=== PATIENT | male | born 1940 | race Caucasian/White ===

== ENCOUNTER 2019-08-09 07:27 | Outpatient (CLI) | payer MEDICARE, SELFPAY ==
[2019-08-09 09:03] LABS: Albumin Level 3.7 g/dL (3.4-5.0); Blood Urea Nitrogen 16 mg/dL (7-18); Carbon Dioxide 29 mmol/L (21-32); Chloride 100 mmol/L (98-108); Estimated Glomerular Filt Rate 56; Glucose 158 mg/dL (70-99); Osmolality Calculated 292 mOsm/kg (285-295); Sodium 139 mmol/L (136-145)
[2019-08-09 09:46] LABS: Alanine Aminotransferase 35 U/L (16-63); Alkaline Phosphatase 49 U/L (46-116); Aspartate Amino Transferase 29 U/L (15-37); Bilirubin,Total 0.4 mg/dL (0.00-1.00); Calcium 9.1 mg/dL (8.5-10.1)
[2019-08-09 09:50] LABS: Prostate Specific Antigen < 0.1 ng/mL (< OR = 4.0)
== END 2019-08-09 07:28 | disposition home or self-care (01) ==
LOC: CHSLAB 07:28
PROVIDERS: PCP Family Medicine; Visit Provider Urology
DX: C61 Malignant neoplasm of prostate (principal)
CPT/HCPCS: 36415; 80053; 84153

== ENCOUNTER 2020-02-07 14:54 | Outpatient (CLI) | payer MEDICARE, SELFPAY ==
[2020-02-07 16:00] LABS: Alanine Aminotransferase 40 U/L (16-63); Albumin Level 3.8 g/dL (3.4-5.0); Alkaline Phosphatase 55 U/L (46-116); Anion Gap 11 mmol/L (8-16); Aspartate Amino Transferase 30 U/L (15-37); Bilirubin,Total 0.3 mg/dL (0.00-1.00); Blood Urea Nitrogen 16 mg/dL (7-18); Calcium 9.3 mg/dL (8.5-10.1); Carbon Dioxide 25 mmol/L (21-32); Chloride 104 mmol/L (98-108); Estimated Glomerular Filt Rate 50; Glucose 121 mg/dL (70-99); Osmolality Calculated 292 mOsm/kg (285-295); Potassium 4.4 mmol/L (3.5-5.1); Sodium 140 mmol/L (136-145); Total Protein 7.1 g/dL (6.4-8.2)
[2020-02-07 16:10] LABS: Prostate Specific Antigen < 0.1 ng/mL (< OR = 4.0)
== END 2020-02-07 14:55 | disposition home or self-care (01) ==
LOC: CHSLAB 14:56
PROVIDERS: PCP Family Medicine; Visit Provider Urology
DX: C61 Malignant neoplasm of prostate (principal)
CPT/HCPCS: 36415; 80053; 84153

== ENCOUNTER 2020-03-04 02:40 | Emergency (ER) | payer MEDICARE, SELFPAY ==
--- NOTE | ~2020-03-04 | CT_ITS ---
EXAMINATION: CT abdomen pelvis w con DATE: 03/04/2020 04:36 INDICATION: Elbow pain and rectal bleeding TECHNIQUE: Computed tomography (CT) of the abdomen and pelvis was performed with 100 cc Omnipaque 350 intravenous contrast. The dose-length product was 953.26 mGy-cm. Automated exposure control and iter ative reconstruction technique were employed. COMPARISON: None. FINDINGS: Bibasilar dependent atelectasis. Cardiomegaly. No significant pleural or pericardial effusi on. Status post cholecystectomy. Fatty infiltration of the liver. The spleen, pancreas, adrenal glands there is thickening and surroun ding inflammation in the ascending colon, consistent with acute diverticulitis. No free air. No evide nce for abscess. There is a left lower pole renal cyst measuring 4.5 cm. There are smaller hypodensities of the kidney s, most likely benign cysts. There is a 3 mm nonobstructing right renal stone. There are changes of v entral hernia repair. Status post appendectomy and cholecystectomy. There are probable radiation ther apy seeds. Moderate lumbar spondylosis. There is a urachal remnant of the bladder. IMPRESSION: 1. Acute uncomplicated diverticulitis of the ascending colon. 2: Nonobstructing right renal stone measuring 3 mm. Reviewed, dictated and finalized at location A. 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
[2020-03-04 02:51] VITALS: BP 97/45; PULSE 101; RESP 20; TEMP 36.1; O2SAT 95
[2020-03-04] MEDS: SODIUM CHLORIDE 0.9% IV 1,000 ML 999 ML IV CONT (03:07)
[2020-03-04] MEDS: ONDANSETRON INJ 4 MG/2 ML VIAL IV PUSH (03:41)
[2020-03-04] MEDS: PANTOPRAZOLE SODIUM IV 40 MG VIAL IV PUSH (03:42)
[2020-03-04 03:48] LABS: Basophils Absolute Auto 0.05 K/mm3 (0.00-0.10); Basophils Percent Auto 0.4 % (0.0-1.0); Eosinophils Absolute Auto 0.38 K/mm3 (0.02-0.50); Eosinophils Percent Auto 3.1 % (1.0-6.0); Hemoglobin 9.6 g/dL (12.4-15.3); Immature Granulocyte Absolute 0.07 K/mm3 (0.00-0.00); Immature Granulocyte Percent A 0.6 % (0.0-0.0); Lymphocytes Absolute Auto 0.93 K/mm3 (1.10-4.50); Lymphocytes Percent Auto 7.6 % (18.0-42.0); Mean Corpuscular HGB Conc 34.3 g/dL (32.0-36.0); Mean Corpuscular Hemoglobin 30.4 pg (27.0-31.0); Mean Corpuscular Volume 88.6 fL (78.0-102.0); Monocytes Absolute Auto 0.94 K/mm3 (0.10-0.90); Monocytes Percent Auto 7.7 % (2.0-11.0); Neutrophils Absolute Auto 9.9 K/mm3 (1.7-7.2); Neutrophils Percent Auto 80.6 % (50.0-70.0); Platelet Count Result 193 K/mm3 (150-420); Red Blood Count 3.16 M/mm3 (4.70-6.10); Red Cell Distribution Width 14.1 % (11.6-14.4); White Blood Count 12.3 K/mm3 (4.8-10.8)
--- NOTE | 2020-03-04 03:50 | ECG_ITS ---
Measurements Intervals Sebastian Rate: 82 P: 25 MD: 149 QRS: -30 QRSD: 101 T: 13 QT: 385 QTc: 451 Interpretive Statements SINUS RHYTHM DELAYED PRECORDIAL R/S TRANSITION BORDERLINE T WAVE ABNORMALITY- INFERIOR LEADS BORDERLINE ECG Electronically Signed On 03-05-2020 8:16:20 [employer]IP [employer]EWARD by Kodi Mckinney D.O.
[2020-03-04 04:04] LABS: Occult Blood Positive (Negative)
[2020-03-04 04:06] LABS: Partial Thromboplastin Time 24.3 SEC (23.90-30.70)
[2020-03-04 04:10] LABS: Alanine Aminotransferase 26 U/L (16-63); Albumin Level 2.8 g/dL (3.4-5.0); Alkaline Phosphatase 40 U/L (46-116); Anion Gap 9 mmol/L (8-16); Aspartate Amino Transferase 18 U/L (15-37); Bilirubin,Total 0.4 mg/dL (0.00-1.00); Blood Urea Nitrogen 11 mg/dL (7-18); Calcium 7.7 mg/dL (8.5-10.1); Carbon Dioxide 22 mmol/L (21-32); Chloride 106 mmol/L (98-108); Estimated CRCL calculation 45 ml/min; Estimated Glomerular Filt Rate 56; Glucose 183 mg/dL (70-99); Osmolality Calculated 288 mOsm/kg (285-295); Potassium 3.9 mmol/L (3.5-5.1); Sodium 137 mmol/L (136-145); Total Protein 5.8 g/dL (6.4-8.2)
[2020-03-04 04:14] LABS: Ammonia 21 umol/L (11-32); Lipase 135 U/L (73-393)
[2020-03-04 04:15] LABS: Lactic Acid Reflex 3.9 mmol/L (0.4-2.0)
[2020-03-04 04:22] LABS: SARS-CoV-2 Ag Negative (Negative)
[2020-03-04] MEDS: MAGNESIUM SULF 2 GM/WATER 50ML 2 GM/50 ML BAG IVPB (04:45)
--- NOTE | 2020-03-04 05:37 | ED.GIBLEED ---
HPI - GI Bleed General Chief complaint: GI Bleed Stated complaint: Vomiting and Diarrhea Source: patient and family Mode of arrival: ambulatory History of Present Illness HPI Narrative: this is a 79-year-old gentleman presents to the emergency department with some rectal bleed, the patient woke up approximately 1 in the morning felt like he had to use that the bathroom was having some abdominal discomfort thought he had diarrhea and while on the toilet there was large amount of bright red blood, the patient had some abdominal discomfort with nausea and had an episode of vomiting, the vomitus had no blood. Patient has had no prior history of GI bleed, currently has a history of diabetes, hyperlipidemia and hypertension and is currently taking a baby aspirin. Patient has been feeling weak with no shortness of breath no chest pain no fever chills. MD complaint: gross hematochezia Onset (ago): hour(s) Pain Consistency: constant Severity: moderate Relieving factors: bowel movement Exacerbating factors: none Associated symptoms: abdominal pain Related Data Home Medications Medication Instructions Recorded Confirmed allopurinol 100 mg PO DAILY 03/04/20 03/04/20 cholecalciferol (vitamin D3) 25 mcg PO DAILY 03/04/20 03/04/20 cyanocobalamin (vitamin B-12) 1,000 mcg PO DAILY 03/04/20 03/04/20 losartan 100 mg PO DAILY 03/04/20 03/04/20 metformin 1,000 mg PO BID 03/04/20 03/04/20 omeprazole 40 mg PO DAILY 03/04/20 03/04/20 simvastatin 10 mg PO DAILY 03/04/20 03/04/20 Allergies Allergy/AdvReac Type Severity Reaction Status Date / Time No Known Allergies Allergy Mild Unverified 10/24/04 16:15 Review of Systems Review of Systems: All systems reviewed & are unremarkable except as noted in HPI and below PMFSH Past Medical History Medical History Diabetes mellitus HTN (hypertension) Family History Family History Mother Family history of hypothyroidism Exam Const: General: no acute distress and alert Orientation/consciousness: patient oriented x3 HENMT: Head: normal to inspection Eyes: Conjunctivae: conjunctivae normal Pupils: Equal, round and reactive pupils present EOM: EOMs intact bilaterally Neck: Neck: normal visual inspection, no lymphadenopathy and no meningeal signs Chest: Chest palpation & inspection: normal inspection of the chest Resp: Effort & Inspection: normal respiratory effort Auscultation: clear to auscultation bilaterally GI: GI Palp: Yes Soft to palpation and Yes Tenderness to palpation present (GI) Other: rectal exam did show quite a bit of bright red blood on my glove Neuro: General: patient oriented x3, moves all extremities, no meningeal signs and no focal motor deficits Psych: Mental Status: mental status grossly normal Course Course Emergency Course: patient resting comfortably initially had a blood pressure of 97/45, did receive fluid bolus and current blood pressure 122/60, initially had a heart rate of 101 and currently is 81 of the rest of his vital signs are stable, the patient appears comfortable did receive IV fluids, he had a low magnesium level and that was replaced with a Mag rider, currently no nausea or vomiting abdominal pain is improved. CT scan showed evidence of acute diverticulitis of the ascending colon, will give a g of ceftriaxone and also IV Flagyl. Talked to hospitalist at [facility] in [place] which is the accepting physician . Vital Signs Vital signs: Vital Signs Temperature 36.1 C L 03/04/20 02:51 Pulse Rate 101 H 03/04/20 02:51 Respiratory Rate 20 03/04/20 02:51 Blood Pressure 97/45 L 03/04/20 02:51 Pulse Oximetry 95 03/04/20 02:51 Temperature 36.1 C L 03/04/20 02:51 Pulse Rate 101 H 03/04/20 02:51 Respiratory Rate 20 03/04/20 02:51 Blood Pressure 97/45 L 03/04/20 02:51 Pulse Oximetry 95 03/04/20
--- NOTE | 2020-03-04 05:43 | PC.NURSE ---
ERP discussed transfer and POC c pt. and spouse. Pt. requests transfer to [facility] for services. Call placed to [facility].
[2020-03-04] MEDS: SODIUM CHLORIDE 0.9% IV 1,000 ML 150 ML IV CONT (05:48)
--- NOTE | 2020-03-04 06:04 | PC.NURSE ---
call back from [facility], will connect c hospitalist. Awaiting call back.
--- NOTE | 2020-03-04 06:11 | PC.NURSE ---
Dr. Jane accepts for transfer. Paperwork signed.
[2020-03-04] MEDS: metroNIDAZOLE 500 MG/ISO 100ML 500 MG/100 ML BAG 100 MG IVPB (06:30)
[2020-03-04 06:42] LABS: Reflex Lactic Acid Yes or No Add Lactic
[2020-03-04 07:13] LABS: Lactic Acid 2.5 mmol/L (0.4-2.0)
[2020-03-04 07:14] VITALS: BP 132/68; PULSE 81; RESP 18; TEMP 36.1; O2SAT 97
--- NOTE | 2020-03-04 07:17 | PC.NURSE ---
Call placed to [facility] for pt. transfer. Pt. resting c no c/o, VSS.
--- NOTE | 2020-03-04 07:29 | PC.NURSE ---
Pt. assisted to [facility], had small BM of bright red blood clots. Awaiting [facility] for transfer.
== END 2020-03-04 07:42 | disposition short-term general hospital (02) ==
PROVIDERS: Emergency Provider Emergency Medicine; PCP Family Medicine
DX: K92.2 Gastrointestinal hemorrhage, unspecified (principal); E11.9 Type 2 diabetes mellitus without complications; I10 Essential (primary) hypertension
CPT/HCPCS: 36415; 74177; 80053; 82140; 82272; 83605; 83690; 83735; 85025; 85610; 85730; 87426; 93005; 96361; 96365; 96367; 96375; 99285; C9113; C9803; J0696; J2405; J3475; J7030; Q9967

== ENCOUNTER 2020-08-04 08:25 | Outpatient (CLI) | payer MEDICARE, SELFPAY ==
[2020-08-04 09:41] LABS: Alanine Aminotransferase 42 U/L (16-63); Albumin Level 3.7 g/dL (3.4-5.0); Alkaline Phosphatase 51 U/L (46-116); Anion Gap 13 mmol/L (8-16); Aspartate Amino Transferase 30 U/L (15-37); Bilirubin,Total 0.4 mg/dL (0.00-1.00); Blood Urea Nitrogen 15 mg/dL (7-18); Calcium 9.3 mg/dL (8.5-10.1); Carbon Dioxide 23 mmol/L (21-32); Chloride 103 mmol/L (98-108); Estimated Glomerular Filt Rate 55; Glucose 174 mg/dL (70-99); Osmolality Calculated 292 mOsm/kg (285-295); Potassium 4.4 mmol/L (3.5-5.1); Sodium 139 mmol/L (136-145); Total Protein 7.1 g/dL (6.4-8.2)
[2020-08-04 09:42] LABS: Prostate Specific Antigen < 0.1 ng/mL (< OR = 4.0)
== END 2020-08-04 08:26 | disposition home or self-care (01) ==
LOC: CHSLAB 08:26
PROVIDERS: PCP Family Medicine; Visit Provider Urology
DX: C61 Malignant neoplasm of prostate (principal)
CPT/HCPCS: 36415; 80053; 84153

== ENCOUNTER 2021-03-13 10:10 | Outpatient (CLI) | payer MEDICARE, SELFPAY ==
[2021-03-13 11:52] LABS: Alanine Aminotransferase 37 U/L (16-63); Albumin Level 3.6 g/dL (3.4-5.0); Alkaline Phosphatase 71 U/L (46-116); Anion Gap 11 mmol/L (8-16); Aspartate Amino Transferase 28 U/L (15-37); Bilirubin,Total 0.4 mg/dL (0.00-1.00); Blood Urea Nitrogen 28 mg/dL (7-18); Calcium 9.2 mg/dL (8.5-10.1); Carbon Dioxide 25 mmol/L (21-32); Chloride 92 mmol/L (98-108); Estimated Glomerular Filt Rate 30; Potassium 5.2 mmol/L (3.5-5.1); Sodium 128 mmol/L (136-145); Total Protein 7.4 g/dL (6.4-8.2)
[2021-03-13 11:56] LABS: Glucose 561 mg/dL (70-99); Osmolality Calculated 297 mOsm/kg (285-295); Prostate Specific Antigen < 0.1 ng/mL (< OR = 4.0)
== END 2021-03-13 10:11 | disposition home or self-care (01) ==
LOC: CHSLAB 10:13
PROVIDERS: PCP Physician Assistant; Visit Provider Urology
DX: C61 Malignant neoplasm of prostate (principal)
CPT/HCPCS: 36415; 80053; 84153

== ENCOUNTER 2021-03-13 16:46 | Emergency (ER) | payer MEDICARE, SELFPAY ==
[2021-03-13 17:00] LABS: Glucose Point of Care > 450 mg/dl (65-105)
[2021-03-13 17:04] VITALS: BP 131/67; PULSE 103; RESP 20; TEMP 36.6; O2SAT 96
--- NOTE | 2021-03-13 17:20 | ED_ITS ---
HPI - Alcohol General Chief Complaint: Recheck/Abnormal Lab/Rx Stated Complaint: doctor recommened glucose high Time Seen by Provider: 03/13/21 16:47 Related Data Home Medications Medication Instructions Recorded Confirmed allopurinol 100 mg PO DAILY 03/04/20 03/13/21 cholecalciferol (vitamin D3) 25 mcg PO DAILY 03/04/20 03/13/21 cyanocobalamin (vitamin B-12) 1,000 mcg PO DAILY 03/04/20 03/13/21 losartan 100 mg PO DAILY 03/04/20 03/13/21 omeprazole 40 mg PO DAILY 03/04/20 03/13/21 simvastatin 10 mg PO DAILY 03/04/20 03/13/21 Adult Low Dose Aspirin 81 mg PO DAILY 03/13/21 03/13/21 dicyclomine 20 mg PO PRN 03/13/21 03/13/21 sitagliptin [Januvia] 100 mg PO DAILY 03/13/21 03/13/21 Allergies Allergy/AdvReac Type Severity Reaction Status Date / Time No Known Allergies Allergy Mild Verified 03/13/21 17:09 [facility] Past Medical History Medical History Diabetes mellitus HTN (hypertension) Family History Family History Mother Family history of hypothyroidism Course Vital Signs Vital signs: Vital Signs Temperature 36.6 C 03/13/21 17:04 Pulse Rate 103 H 03/13/21 17:04 Respiratory Rate 20 03/13/21 17:04 Blood Pressure 131/67 03/13/21 17:04 Pulse Oximetry 96 03/13/21 17:04 Temperature 36.6 C 03/13/21 17:04 Pulse Rate 103 H 03/13/21 17:04 Respiratory Rate 20 03/13/21 17:04 Blood Pressure 131/67 03/13/21 17:04 Pulse Oximetry 96 03/13/21 17:04 MDM - Alcohol Lab Data Labs: Lab Results 03/13/21 Range/Units 16:58 POC Capillary Glucose > 450 H (65-105) mg/dl Discharge Plan Discharge Prescriptions: No Action simvastatin 10 mg tablet 10 mg PO DAILY RF: 0 allopurinol 100 mg tablet 100 mg PO DAILY RF: 0 omeprazole 40 mg capsule,delayed release(DR/EC) 40 mg PO DAILY RF: 0 losartan 100 mg tablet 100 mg PO DAILY RF: 0 cholecalciferol (vitamin D3) 25 mcg (1,000 unit) Tablet 25 mcg PO DAILY RF: 0 cyanocobalamin (vitamin B-12) 1,000 mcg Capsule 1,000 mcg PO DAILY RF: 0 dicyclomine 20 mg tablet 20 mg PO PRN RF: 0 Januvia 100 mg tablet 100 mg PO DAILY RF: 0 Adult Low Dose Aspirin 81 mg 81 mg PO DAILY RF: 0
--- NOTE | 2021-03-13 17:21 | ED.RECABL ---
HPI - Recheck/Abnormal Lab/Rx General Chief Complaint: Recheck/Abnormal Lab/Rx Stated Complaint: doctor recommened glucose high Time Seen by Provider: 03/13/21 17:36 Source: patient Mode of arrival: ambulatory Limitations: no limitations History of Present Illness HPI narrative: 80-year-old man with history of type 2 diabetes and prostate cancer comes to the emergency department at the behest of his primary care doctor for abnormal labs. Namely he has a sodium 128, glucose of 561 and a creatinine of 2.12. Patient states that he has been feeling well and has had no frequent urination, dysuria, hematuria, nausea, vomiting, chest pain, diarrhea, abdominal pain or recent cough or cold symptoms. He states that he takes Januvia daily for his diabetes. Until 4 months ago he was taking metformin but he was intolerant of that medication (diarrhea). He does not check his blood glucose at home. MD complaint: other (Hyperglycemia) Initial visit (ago): hour(s) Initial visit for: other (Routine labs prostate cancer follow-up) Returns today for: called because of abnormal lab/test Symptoms since prior visit: no new symptoms Context: called for abnormal lab result Associated symptoms: none Related Data Home Medications Medication Instructions Recorded Confirmed allopurinol 100 mg PO DAILY 03/04/20 03/13/21 cholecalciferol (vitamin D3) 25 mcg PO DAILY 03/04/20 03/13/21 cyanocobalamin (vitamin B-12) 1,000 mcg PO DAILY 03/04/20 03/13/21 losartan 100 mg PO DAILY 03/04/20 03/13/21 omeprazole 40 mg PO DAILY 03/04/20 03/13/21 simvastatin 10 mg PO DAILY 03/04/20 03/13/21 Adult Low Dose Aspirin 81 mg PO DAILY 03/13/21 03/13/21 dicyclomine 20 mg PO PRN 03/13/21 03/13/21 sitagliptin [Januvia] 100 mg PO DAILY 03/13/21 03/13/21 Allergies Allergy/AdvReac Type Severity Reaction Status Date / Time No Known Allergies Allergy Mild Verified 03/13/21 17:09 Review of Systems Review of Systems: All systems reviewed & are unremarkable except as noted in HPI and below Constitutional: Constitutional: Denies chills and Denies fever(s) ENT: Denies nasal congestion and Denies sore throat Cardiovascular: Cardiovascular: Denies chest pain and Denies radiating jaw, neck or arm pain Respiratory: Respiratory: Denies cough, Denies dyspnea and Denies wheezing Gastrointestinal: Gastrointestinal: Denies abdominal pain, Denies diarrhea, Denies nausea and Denies vomiting Genitourinary: Genitourinary: Denies dysuria and Denies urinary frequency Musculoskeletal: Musculoskeletal: Denies back pain, Denies arthralgias and Denies joint swelling Integumentary/Breasts: Skin/Breast: Denies pruritus, Denies erythema and Denies rash Neurologic: Denies vertigo, Denies dizziness and Denies syncope Endocrine: Endocrine: Denies polydipsia and Denies polyuria Hematologic/Lymphatic: Hematologic/Lymphatic: Denies easy bleeding and Denies easy bruising Allergic/Immunologic: Allergic/Immunologic: Denies lip swelling and Denies throat swelling PMFSH Past Medical History Medical History (Updated 03/13/21 @ 18:38 by Kenyon Long MD) HTN (hypertension) Prostate cancer Type 2 diabetes mellitus Family History Family History Mother Family history of hypothyroidism Social History Social History (Updated 03/13/21 @ 18:34 by Kenyon Long MD) Smoking status: Never smoker Substance use: never Living arrangements: with family Exam Const: General: healthy appearing, no acute distress and alert Nutritional Appearance: well nourished Orientation/consciousness: patient oriented x3 Limitations: no limitations HENMT: Mouth: Yes moist mucous membranes Throat: posterior oropharynx normal Eyes: Conjunctivae: conjunctivae normal Pupils: Equal, round and reactive pupils present EOM: EOMs intact bilaterally Resp: Effort & Inspection: normal respiratory effort and not labored Auscultation: clear to auscul
[2021-03-13 18:10] LABS: Add Urine Microscopic? YES; Appearance Urine Clear (Clear); Bilirubin Urine Negative (Negative); Blood Urine Negative (Negative); Color Urine Light Yellow (Yellow); Glucose Urine UA 3+ (Negative); Ketones Urine Negative (Negative); Leukocyte Esterase Ur Negative (Negative); Nitrate Urine Negative (Negative); Protein Urine Negative (Negative); Urobilinogen Urine 0.2 mg/dL (0.2-1.0); pH Urine 5.5 (5.0-8.0)
[2021-03-13 18:16] LABS: Bacteria Urine Trace /hpf; RBC Urine 0-2 /hpf (0-2); WBC Urine 0-3 /hpf (0-3)
[2021-03-13 18:28] LABS: SARS-CoV-2 Ag Negative (Negative)
[2021-03-13] MEDS: INSULIN HUMAN REGULAR (*BKC) 100 UNITS/ML SUB-Q (18:34)
--- NOTE | 2021-03-13 18:43 | PC.NURSE ---
Pt educated on insulin administration and BGC monitoring, return explanation performed
== END 2021-03-13 19:20 | disposition home or self-care (01) ==
PROVIDERS: Emergency Provider Emergency Medicine; PCP Physician Assistant
DX: E11.9 Type 2 diabetes mellitus without complications (principal); Z20.822 Contact with and (suspected) exposure to COVID-19; I10 Essential (primary) hypertension; Z85.46 Personal history of malignant neoplasm of prostate
CPT/HCPCS: 36415; 81001; 82948; 83036; 87426; 99283; C9803; J1815

== ENCOUNTER 2021-04-05 11:50 | Outpatient (CLI) | payer MEDICARE, SELFPAY ==
--- NOTE | ~2021-04-05 | US_ITS ---
EXAMINATION: US retroperitoneal comp DATE: 04/05/2021 12:34 INDICATION: Prostate cancer. Chronic kidney disease. TECHNIQUE: Multiple ultrasound grayscale images of the kidneys were obtained. COMPARISON: None. FINDINGS: The right kidney measures 11.4 x 5.0 x 5.0 cm. The left kidney measures 12.3 x 5.3 x 5.1 cm. The kidn eys demonstrate normal echogenicity. 8 mm anechoic cyst at the upper pole of the right kidney. 3.5 cm exophytic cyst at the lower pole of the left kidney. There is no hydronephrosis in either kidney. N o stones identified. The bladder is normal with calculated prevoid volume of 117 mm and calculated po stvoid bladder volume of 9 mL. IMPRESSION: 1. Bilateral renal cysts. No hydronephrosis. Reviewed, dictated and finalized at location A. 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
[2021-04-05 12:18] LABS: Hemoglobin A1C 10.9 % (<5.7)
[2021-04-05 12:41] LABS: Anion Gap 12 mmol/L (8-16); Blood Urea Nitrogen 26 mg/dL (7-18); Calcium 9.3 mg/dL (8.5-10.1); Carbon Dioxide 27 mmol/L (21-32); Chloride 100 mmol/L (98-108); Estimated Glomerular Filt Rate 47; Glucose 117 mg/dL (70-99); Osmolality Calculated 293 mOsm/kg (285-295); Potassium 4.4 mmol/L (3.5-5.1); Sodium 139 mmol/L (136-145)
== END 2021-04-05 11:51 | disposition home or self-care (01) ==
LOC: CHSIMG 11:52
PROVIDERS: PCP Physician Assistant; Visit Provider Urology
DX: C61 Malignant neoplasm of prostate (principal); N18.9 Chronic kidney disease, unspecified; E11.9 Type 2 diabetes mellitus without complications
CPT/HCPCS: 36415; 76770; 80048; 83036

== ENCOUNTER 2022-03-11 10:09 | Outpatient (CLI) | payer MEDICARE, SELFPAY ==
[2022-03-11 11:21] LABS: Alanine Aminotransferase 25 U/L (16-63); Albumin Level 3.7 g/dL (3.4-5.0); Alkaline Phosphatase 62 U/L (46-116); Anion Gap 11 mmol/L (8-16); Aspartate Amino Transferase 20 U/L (15-37); Bilirubin,Total 0.4 mg/dL (0.00-1.00); Blood Urea Nitrogen 22 mg/dL (7-18); Calcium 8.8 mg/dL (8.5-10.1); Carbon Dioxide 28 mmol/L (21-32); Chloride 103 mmol/L (98-108); Estimated Glomerular Filt Rate 55; Glucose 156 mg/dL (70-99); Osmolality Calculated 300 mOsm/kg (285-295); Potassium 4.4 mmol/L (3.5-5.1); Sodium 142 mmol/L (136-145); Total Protein 7.4 g/dL (6.4-8.2)
[2022-03-11 11:22] LABS: Prostate Specific Antigen < 0.1 ng/mL (< OR = 4.0)
== END 2022-03-11 10:10 | disposition home or self-care (01) ==
LOC: CHSLAB 10:14
PROVIDERS: PCP Physician Assistant; Visit Provider Urology
DX: C61 Malignant neoplasm of prostate (principal)
CPT/HCPCS: 36415; 80053; 84153

== ENCOUNTER 2022-05-12 12:40 | Outpatient (CLI) | payer MEDICARE, SELFPAY ==
--- NOTE | ~2022-05-12 | XR_ITS ---
Left Knee Technique: AP, lateral, and sunrise views were obtained. Clinical History: Pain Findings: No fracture or dislocation is seen. Osseous alignment is anatomic. There is mild tricompart mental degenerative change, worse at the medial compartment. Soft tissues are unremarkable. No joint effusion is seen. 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 Reviewed, dictated and finalized at location . 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
== END 2022-05-12 12:41 | disposition home or self-care (01) ==
LOC: CHSIMG 12:42
PROVIDERS: PCP Physician Assistant; Visit Provider Physician Assistant
DX: M25.561 Pain in right knee (principal); M17.12 Unilateral primary osteoarthritis, left knee
CPT/HCPCS: 73562

== ENCOUNTER 2023-03-11 08:41 | Outpatient (CLI) | payer MEDICARE, SELFPAY ==
[2023-03-11 09:39] LABS: Alanine Aminotransferase 31 U/L (16-63); Albumin Level 3.4 g/dL (3.4-5.0); Alkaline Phosphatase 57 U/L (46-116); Anion Gap 14 mmol/L (8-16); Aspartate Amino Transferase 19 U/L (15-37); Bilirubin,Total 0.5 mg/dL (0.00-1.00); Blood Urea Nitrogen 23 mg/dL (7-18); Calcium 8.8 mg/dL (8.5-10.1); Carbon Dioxide 25 mmol/L (21-32); Chloride 99 mmol/L (98-108); Estimated Glomerular Filt Rate 48; Glucose 253 mg/dL (70-99); Osmolality Calculated 298 mOsm/kg (285-295); Potassium 4.4 mmol/L (3.5-5.1); Sodium 138 mmol/L (136-145); Total Protein 7.2 g/dL (6.4-8.2)
[2023-03-11 09:41] LABS: Prostate Specific Antigen < 0.1 ng/mL (< OR = 4.0)
== END 2023-03-11 08:42 | disposition home or self-care (01) ==
LOC: CHSLAB 08:44
PROVIDERS: PCP Physician Assistant; Visit Provider Urology
DX: C61 Malignant neoplasm of prostate (principal)
CPT/HCPCS: 36415; 80053; 84153

== ENCOUNTER 2024-01-25 12:38 | Outpatient (CLI) | payer MEDICARE, SELFPAY ==
[2024-01-25 13:59] LABS: Alanine Aminotransferase 21 U/L (16-63); Albumin Level 3.4 g/dL (3.4-5.0); Alkaline Phosphatase 72 U/L (46-116); Anion Gap 10 mmol/L (4-12); Aspartate Amino Transferase 15 U/L (15-37); Bilirubin,Total 0.4 mg/dL (0.00-1.00); Blood Urea Nitrogen 30 mg/dL (7-18); Calcium 8.8 mg/dL (8.5-10.1); Carbon Dioxide 26 mmol/L (21-32); Chloride 102 mmol/L (98-108); Estimated Glomerular Filt Rate 33; Glucose 186 mg/dL (70-99); Osmolality Calculated 297 mOsm/kg (285-295); Potassium 4.4 mmol/L (3.5-5.1); Prostate Specific Antigen < 0.1 ng/mL (< OR = 4.0); Sodium 138 mmol/L (136-145); Total Protein 7.1 g/dL (6.4-8.2)
== END 2024-01-25 12:39 | disposition home or self-care (01) ==
LOC: CHSLAB 12:39
PROVIDERS: PCP Physician Assistant; Visit Provider Urology
DX: C61 Malignant neoplasm of prostate (principal); N40.3 Nodular prostate with lower urinary tract symptoms
CPT/HCPCS: 36415; 80053; 84153

== ENCOUNTER 2024-02-12 08:28 | Outpatient (CLI) | payer MEDICARE, SELFPAY ==
--- NOTE | ~2024-02-12 | US_ITS ---
EXAMINATION: US renal BI DATE: 02/12/2024 09:06 INDICATION: Stage IIIB chronic kidney disease TECHNIQUE: Multiple ultrasound grayscale images of the kidneys were obtained. COMPARISON: 04/05/[address] dated 03/04/2020 FINDINGS: The right kidney measures 10.7 x 3.6 x 4.4 cm. The left kidney measures 4.8 x 4.0 x 6.3 cm. The kidne ys demonstrate normal echogenicity. 3.9 cm anechoic eccentric cyst at the left kidney. There is no hy dronephrosis in either kidney. Approximately 1 cm echogenic and shadowing stone at the lower pole of the right kidney. The bladder is normal. IMPRESSION: 1. 1 cm nonobstructing right renal stone. No hydronephrosis. Reviewed, dictated and finalized at location B. [employer]
== END 2024-02-12 08:29 | disposition home or self-care (01) ==
LOC: CHSIMG 08:30
PROVIDERS: PCP Physician Assistant
DX: N18.32 Chronic kidney disease, stage 3b (principal); N20.0 Calculus of kidney
CPT/HCPCS: 76775

== ENCOUNTER 2024-03-03 13:18 | Outpatient (CLI) | payer MEDICARE, SELFPAY ==
--- NOTE | ~2024-03-03 | US_ITS ---
US pelvic limited 03/03/2024 13:36 Indication: Prostate cancer. Evaluate post void residual. Procedure: High-resolution transabdominal ultrasound of the pelvis Comparison: Ultrasound dated 08/23/2018 Findings: Bladder wall is unremarkable without focal mass or bladder wall thickening. Prevoid volume is 131 cc. No post void residual. Impression: 1: Unremarkable pelvic ultrasound. No postvoid residual. Reviewed, dictated and finalized at location A. 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 No postvoid residual.
== END 2024-03-03 13:19 | disposition home or self-care (01) ==
LOC: CHSIMG 13:20
PROVIDERS: PCP Physician Assistant; Visit Provider Urology
DX: C61 Malignant neoplasm of prostate (principal); N18.9 Chronic kidney disease, unspecified
CPT/HCPCS: 76857

== ENCOUNTER 2024-03-17 08:26 | Outpatient (CLI) | payer MEDICARE, SELFPAY ==
[2024-03-17 08:41] LABS: Hematocrit 37.8 % (37.0-46.0); Hemoglobin 12.3 g/dL (12.4-15.3); Mean Corpuscular HGB Conc 32.5 g/dL (32-36); Mean Corpuscular Hemoglobin 28.5 pg (27.0-31.0); Mean Corpuscular Volume 87.7 fL (78.0-102.0); Mean Platelet Volume 9.5 fl (8.7-11.0); Platelet Count Result 253 K/mm3 (150-420); Red Blood Count 4.31 M/mm3 (4.70-6.10); Red Cell Distribution Width 14.4 % (11.6-14.4); White Blood Count 10.5 K/mm3 (4.8-10.8)
--- OUTSIDE RECORDS SUMMARY | 2024-03-17 08:45 | XMS_ITS | Encounter Summary ---
Author Organization [facility] Address [address] [place] [address]. [place], [place] [id number] [place] [id number] Care Team Providers Care Bromination Equipment Operator Name Role Phone Blake Nixon MD Primary Care Provider [phone] Encounter Details Date Type Department Care Team (Late st Contact Info) Description 03/08/2020 Hospital Follow-up Call [facility] [address] [place] [address] Tracie Gimenez RN Social History Tobacco Use Types Packs/Day Years Used Date Smoking Tobacco: Former Smokeless Tobacco: Former Alcohol Use Standard Drinks/Week Comments Yes 0 (1 standard drink = 0.6 oz pur e alcohol) RARE Sex and Gender Information Value Date Recorded Sex Assigned at Not on file Legal Sex Male 9:42 PM COTTON FE[employer]ER Gender Identity Not on file Sexual Orientation Not on file COVID-19 Exposure Response Date Recorded In the last month, have you been in contact with someone who was confirmed or suspected to have Coronavirus / COVID-19? No / Unsure 03/04/2020 9:26 AM COTTON FEEDER documented as of this encounter Functional Status * RETIRED Are you deaf or do you have serious difficulty hearing Answer Date of Assessment Author Status Yes 03/04/2020 9:08 AM COTTON FEEDER Activ e * RETIRED Are you blind or do you have serious difficulty seeing, even when wearing glasses? Answer Date of Assessment Author Status No 03/04/2020 9:08 AM COTTON FEEDER Activ e * Do you have serious difficulty walking or climbing stairs? Answer Date of Assessment Author Status No 03/04/2020 9:08 AM COTTON FEEDER Montez Camacho RN Active * Do you have difficulty dressing or bathing? Answer Date of Assessment Author Status No 03/04/2020 9:08 AM Montez Burgess RN Active * Because of a physical, mental, or emotional condition, do you have difficulty doing errands alone such as visiting a doctor's office or shopping? Answer Date of Assessment Author Status No 03/04/2020 9:08 AM Montez Burgess RN Active documented as of this encounter Mental Status * Because of a physical, mental, or emotional condition, do you have serious difficulty concentrating, remembering, or making decisions? 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
--- OUTSIDE RECORDS SUMMARY | 2024-03-17 08:45 | XMS_ITS | Clinical Summary ---
Author Organization [facility] Address [address], [address] [address] Phone Care Team Providers Care Evaporative Cooler Installer Name Role Phone Demetrio Araiza MD Unavailable [phone] Ronan Farley MD Unavailable [phone] Alex Cross MD Unavailable [phone] Demetrio Weston Primary Care Provider [phone] Mary Jo Atkinson APRN, CITY TREASURER Unavailable [phone] Allergies No known active allergies Medications omeprazole (PRILOSEC) 40 MG CAPSULE DELAYED RELEASE Take 40 mg by mouth daily. Active simvastatin (ZOCOR) 10 MG Tablet Take 10 mg by mouth every evening. Active Aspirin 81 MG Tablet Take 81 mg by mouth daily. Active allopurinol (ZYLOPRIM) 100 MG Tablet Take 100 mg by mouth daily. 0 Active losartan (COZAAR) 100 MG Tablet Take 100 mg by mouth daily. 1 Active Insulin Glargine-Lixise natide (Soliqua) 100-33 UNT-MCG/ML Solution Pen-injector by Subcutaneous route. Active Active Problems Problem Noted Date Diagnosed Date Type 2 diabetes mellitus wit hout complication, without long-term current use of insulin 08/10/2018 Drug-induced gynecomastia 02/04/2018 Overview (02/14/2019): Mild bilateral. Confirmed on bilateral diagnostic mammography 12/04/2017. Secondary to 1 year ADT in treatment for his prostate cancer. Adverse effect of radiation 02/04/2018 Overview (02/04/2018): Mild radiation proctitis which was less than since completion of radiotherapy May 2016. Radiation proctitis 02/04/2018 Overview (02/14/2019): Mild and was lessening since completion of radiotherapy but took step backwards April 2018 with start of Metformin for new diagnosis of diabetes mellitus. Symptom of occasional loose stools with fecal urgency. History of therapeutic radiation 12/30/2016 Overview (11/07/2020): Prostate radiotherapy, 79.20 Gy in 44 fractions, from 03/24/2016 thru 05/22/2016. Encounter for follow-up exam ination after completed treatment for malignant neoplasm 12/30/2016 Overview (02/14/2019): Clinical stage IIA ([id number] [place] 3 + 4 histology and PSA 10.32) adenocarcinoma of the prostate. ??He was started on ADT February 2016 with a 6 month Eligard injection and completed prostate radiotherapy 05/22/2016. His 2nd and final 6 month Eligard injection was 09/02/2016. History of hormone therapy 12/30/2016 Overview (11/07/2020): ADT with leuprolide 45 mg IM injections February 2016 and 09/02/2016. Obesity, Class I, BMI 30-34.9 12/30/2016 Overview (08/10/2018): BMI 33.57 on 08/10/2018. Resolved Problems Problem Noted Date Diagnosed Date Resolved Date Cancer of prostate w/med rec ur risk (T2b-c or Benjamín 7 or PSA 10-20) 02/23/2016 12/30/2016 Cancer Staging:Clinical stage from 02/14/2016:Stage IIA(T2a, N0, M0, 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, Benjamín 7 - Moderately differentiated (moderate anaplasia)) - Signed by Demetrio Araiza MD on 02/23/2016 Family History Medical History Relation Name Comments Melanoma Brother 1 No Known Problems Brother 2 Diabetes Sister 1 Heart Attack Sister 1 Breast Cancer Sister 2 Relation Name Status Comments Brother 1 Brother 2 Alive Father Mother Sister 1 Alive Sister 2 Alive Social History Tobacco Use Types Packs/Day Years Used Date Smoking Tobacco: Former Cigarettes 1 15 0 07/31/1956 - 08/01/1971 Smokeless Tobacco: Former Snuff Quit: 07/31/2001 Tobacco Cessation:Counseling Given: Not Answered Alcohol Use Standard Drinks/Week Comments Yes 0 (1 standard drink = 0.6 oz pure alcohol) Social. Maybe 30 cans of beer a year. Sex and Gender Information Value Date Recorded Sex Assigned at Not on file Legal Sex Male 9:05 PM CDT Gender Identity Not on file Sexual Orientation Not on file Last Filed Vital Signs Vital Sign Reading Time Taken Comments Blood Pressure 138/76 11/05/2022 9:01 AM CDT Pulse 63 11/05/2022 9:01 AM CDT Temperature 36.7 ??C (98 ??F) 11/05/2022 9:01 AM CDT Respiratory Rate 16 11/05/2022 9:01 AM CDT Oxygen Saturation 96% 11/05/2022 9:01 AM CDT Inhaled Oxygen Concentration - - Weight 94 kg (207 lb 4.8 oz) 11/05/2022 9:01 AM CDT Height 165.1 cm (5' 5 ) 11/05/2022 9:01 AM CDT Body Mass Index 34.5 11/05/2022 9:01 AM CDT Plan of Treatment Health Maintenance Due Date Last Done Comments Diabetes: Eye Exam 1940 Diabetes: Foot Exam 1940 Hepatitis C Virus (HCV) Screening 1940 Zoster Immunization (2 of 3) 12/03/2012 10/08/2012 Respiratory Syncytial Virus (RSV) Immunization (Adult) (1 - 1-dose 75+ series) 2016 Diabetes: Nephropathy Screening 03/11/2023 03/11/2022, 03/16/2021, 03/13/2021, Additional history exists Diabetes: Hemoglobin A1c 05/01/2023 023, 07/31/2022, 05/01/2022, Additional history exists Influenza Immunization (#1) 2023 11/0 02/2021, 12/13/2020, 12/08/2019, Additional history exists SARS-COV-2 Immunization ( season) 2023 01/06/2022, 06/06/2021, 12/13/2020, Additional history exists DTaP/Tdap/Td Immunization Discontinued 02/14/2019, TdaP Immunization Completed 02/14/2019, 05/05/2012 Pneumococcal Immunization (50+ years) Completed 01/07/2022, 01/07/2021, 12/07/2020, Additional history exists Pneumococcal Immunization Combined Discontinued 01/07/2022, 01/07/2021, 12/07/2020, Additional history exists Hepatitis B Immunization Aged Out No longer eligible based on patient's age to complete this topic Meningococcal Immunization (ACWY) Aged Out No longer eligible based on patient's age to complete this topic Rotavirus Immunization Aged Out No lo nger eligible based on patient's age to complete this topic Procedures Procedure Name Priority Date/Time Associated Diagnosis Comments CMP (COMPREHENSIVE METABOLIC PANEL) 03/11/2022 12:00 AM FINANCIAL SERVICES INTERN HEMOGLOBIN A1C W/ ESTIMATED GLUCOSE STAT 03/16/2021 10:06 PM FINANCIAL SERVICES INTERN from Last 3 Months or Most Recently Relevant to Health Maintenance Results * CMP (COMPREHENSIVE METABOLIC PANEL) (03/11/2022 12:00 AM FINANCIAL SERVICES INTERN) 03/11/2022 us Provider Scan CHEMISTRY ORDERABLES Final Resul t SCAN * (ABNORMAL) Hemoglobin A1C w/ Estimated Glucose (03/16/2021 10:06 PM FINANCIAL SERVICES INTERN) HGB-A1C 12.6(H) 4.0 - 6.0 % 03/16/2021 11:39 PM FINANCIAL SERVICES INTERN [facility] Est Average Glucose 314.9 mg/dL 03/16/2021 11:39 PM FINANCIAL SERVICES INTERN [facility] Blood Venipuncture / Unknown 03/16/2021 10:06 PM FINANCIAL SERVICES INTERN 03/16/2021 11:10 PM FINANCIAL SERVICES INTERN Narrative [facility] - 03/16/2021 11:39 PM FINANCIAL SERVICES INTERN HEMOGLOBIN A1C: DIABETIC PATIENTS: WELL-CONTROLLED: ?? 6.2 - 7.0 INTERMEDIATE WELL-CONTROLLED: ??7.0 - 9.0 POORLY-CONTROLLED: ??>9.0 us Rajan Carvalho MD CHEMISTRY ORDERABLES Anjali shipman Result [facility] [address] [place] [address] from Last 3 Months or Most Recently Relevant to Health Maintenance [facility] Care Teams Evaporative Cooler Installer Relationship Specialty Start Date End Date Demetrio Weston PAC [address] [place] [id number] PCP - General Physician Mixer Wet Pour 11/08/20 Demetrio Araiza MD Consulting Physician Radiation Oncology 02/14/16 Ronan Farley MD Consulting Physician Urology 02/22/16 Alex Cross MD [address] [place] [address] Consulting Physician Orthopaedic Surgery 02/23/16 Mary Jo Atkinson, ELECTRONIC OPERATOR, CITY TREASURER [address] [place] [address] [address] PAZ [address] [place] [id number] Nurse Practitioner Endocrinology 11/14/21
--- OUTSIDE RECORDS SUMMARY | 2024-03-17 08:45 | XMS_ITS | Clinical Summary ---
Author Organization [facility] [address] Address [address] [place] [address] Care Team Providers [facility] Advisor Name Role Phone Demetrio Weston Primary Care Provider [phone] Allergies Active Allergy Reactions Criticality Noted Date Comments Metformin Diarrhea Low 04/02/2021 Medications omeprazole (PriLOSEC) 40 mg capsule Take by mouth daily 1 Active simvastatin (ZOCOR) 10 mg tablet Take 1 tablet (10 mg total) by mouth daily 1 Active allopurinoL (ZYLOPRIM) 100 mg tablet Take 1 tablet (100 mg total) by mouth daily 1 Active losartan (COZAAR) 100 mg tablet Take 1 tablet (100 mg total) by mouth daily 1 Active cyanocobalamin /folic acid (vitamin K59-xbuze acid) 1,000-400 mcg lozenge Take 1 capsule by mouth daily Active OneTouch Ultra Test strip 2 Active OneTouch Ultra2 Meter misc 2 Active OneTouch Delica Plus Lancet 30 gauge misc 2 Active pen needle, diabetic 32 gauge x 5/32 needle Use to inject insulin daily. E11.65 patient want Relion needles. Will be brenner pay. 400 each 1 4 Active aspirin 81 mg chewable tablet Chew 1 tablet every day by oral route. Active Soliqua 100/33 100 unit-33 mcg/mL insulin penIndications :Type 2 diabetes mellitus with hyperglycemia, with long-term current use of insulin (HCC) INJECT 44 UNITS SUBCUTANEOUSLY EARLY IN THE MORNING BEFORE BREAKFAST 45 mL 4 4 Active calcium carbonate-sumaya min D3 1,500 mg (600 mg elemental)-1,0 00 unit capsule Take 1,000 Units by mouth Active Active Problems Problem Noted Date Diagnosed Date Personal history of colonic polyps 05/14/2023 Encounter for screening colonoscopy 05/14/2023 freestyle nae 2 continuous glucose monitoring device 07/31/2022 Assessment & Plan (12/07/2023 9:32 AM CDT): Continuous glucose monitor (cgm) applied from 11/24/23 to 12/07/23 This device was placed for monitor and treatment of blood sugar. Interpretation of data- average glucose 168, in target range 64%, 36% hyperglycemia. 0 hypoglycemia. Assessment & Plan (08/06/2023 9:22 AM CDT): Continuous glucose monitor (cgm) applied from 07/24/23 to 08/06/23 This device was placed for monitor and treatment of blood sugar. Interpretation of data- average glucose 195, in target range 48%, 52% hyperglycemia. 0 hypoglycemia. Increase Soliqua to drop blood sugar ranges Assessment & Plan (05/04/2023 9:34 AM CDT): Continuous glucose monitor (cgm) applied from 04/21/23 to 05/04/23 This device was placed for monitor and treatment of blood sugar. Interpretation of data- average glucose 217, in target range 30%, 70% hyperglycemia. 0 hypoglycemia. Increase Soliqua to drop blood sugar ranges Assessment & Plan (01/30/2023 9:35 AM MANAGER ENVIRONMENTAL): Continuous glucose monitor (cgm) applied from 01/17/2023 to 01/30/2023 This device was placed for monitor and treatment of blood sugar. Interpretation of data- average glucose 198, in target range 42%, 58% hyperglycemia. 0 hypoglycemia. Increase Soliqua to drop blood sugar ranges Assessment & Plan (07/31/2022 9:23 AM CDT): Continuous glucose monitor (cgm) applied from 07/18/2022 to 07/31/2022 This device was placed for monitor and treatment of blood sugar. Interpretation of data- average glucose 214, in target range 28%, 72% hyperglycemia. 0 hypoglycemia. Increase Soliqua to drop blood sugar ranges Diverticular disease 03/13/2021 History of diverticulitis 03/13/2021 Tubular adenoma of colon 03/13/2021 History of cholecystectomy 03/13/2021 Anemia due to GI blood loss 03/13/2021 Hypertension associated with type 2 diabetes char litus 01/31/2021 Assessment & Plan (12/07/2023 9:30 AM CDT): This is a chronic condition which is at goal. Goal is less than 140/90 Continue losartan Encouraged to monitor weight and B/P at home. Assessment & Plan (08/06/2023 9:21 AM CDT): This is a chronic condition which is at goal. Goal is less than 140/90 Personally reviewed labs. Continue losartan Encouraged to monitor weight and B/P at home. Explained correct way to take blood pressure. - After 5 minutes of sitting calmly with arm supported. Encouraged to void caffeine and excessive alcohol consumption as this will elevate B/P Encouraged to take medications as prescribed. Assessment & Plan (05/04/2023 9:32 AM CDT): This is a chronic condition which is at goal of less than 140/90 Personally reviewed labs. Continue losartan Encouraged to monitor weight and B/P at home Encouraged to take medications as prescribed. Assessment & Plan (10/31/2022 11:18 AM CDT): This is a chronic condition which is at not goal of less than 140/90 Personally reviewed labs. Continue losartan. Encouraged to monitor weight and B/P at home Encouraged to take medications as prescribed. Assessment & Plan (01/31/2021 12:17 AM MANAGER ENVIRONMENTAL): Losartan resumed with hold parameters Dyslipidemia associated with type 2 diabetes char litus 01/31/2021 Assessment & Plan (12/07/2023 9:31 AM CDT): This is a chronic condition which is slightly above goal . Goal is LDL less than 70 Continue simvastatin Encouraged to eat healthy, include fresh fruits and vegetables daily and avoid eating fried foods more than once per week. Assessment & Plan (08/06/2023 9:20 AM CDT): This is a chronic condition which is close to goal . Goal is LDL less than 70 Continue simvastatin Encouraged to eat healthy, include fresh fruits and vegetables daily and avoid eating fried foods more than once per week. Encouraged to take medications as prescribed. Assessment & Plan (05/04/2023 9:32 AM CDT): This is a chronic condition which is not at goal of LDL less than 70 Continue simvastatin Encouraged to eat healthy, include fresh fruits and vegetables daily and avoid eating fried foods more than once per week. Encouraged to take medications as prescribed. Assessment & Plan (01/30/2023 9:31 AM MANAGER ENVIRONMENTAL): This is a chronic condition which is at goal of LDL less than 70 Continue simvastatin Encouraged to eat healthy, include fresh fruits and vegetables daily and avoid eating fried foods more than once per week. Encouraged to take medications as prescribed. Assessment & Plan (10/31/2022 11:17 AM CDT): This is a chronic condition which is at goal of LDL less than 70 Continue pravastatin. Encouraged to eat healthy, include fresh fruits and vegetables daily and avoid eating fried foods more than once per week. Encouraged to take medications as prescribed. Assessment & Plan (07/31/2022 9:20 AM CDT): This is a chronic condition which is at goal of LDL less than 70 Continue simvastatin. Encouraged to eat healthy, include fresh fruits and vegetables daily and avoid eating fried foods more than once per week. Encouraged to take medications as prescribed. Assessment & Plan (05/01/2022 9:29 AM CDT): This is a chronic condition which is at Goal of less than 70. Continue simvastatin. ldl-59 at goal. Encouraged to eat healthy, include fresh fruits and vegetables daily and avoid eating fried foods more than once per week. Encouraged to take medications as prescribed. Assessment & Plan (08/22/2021 9:36 AM CDT): This is a chronic condition Goal is less than 70. Continue simvastatin. ldl-59 at goal. Encouraged to eat healthy, include fresh fruits and vegetables daily and avoid eating fried foods more than once per week. Encouraged to take medications as prescribed. Assessment & Plan (05/16/2021 10:57 AM CDT): This is a chronic condition Goal is less than 70. Continue simvastatin. ldl-59 at goal. Encouraged to eat healthy, include fresh fruits and vegetables daily and avoid eating fried foods more than once per week. Encouraged to take medications as prescribed. Assessment & Plan (04/02/2021 6:12 PM MANAGER ENVIRONMENTAL): This is a chronic condition Goal is less than 70. Continue simvastatin. Encouraged to eat healthy, include fresh fruits and vegetables daily and avoid eating fried foods more than once per week. Encouraged to take medications as prescribed. Assessment & Plan (01/31/2021 12:17 AM MANAGER ENVIRONMENTAL): Continue statin Normocytic anemia 01/31/2021 Assessment & Plan (01/31/2021 12:18 AM MANAGER ENVIRONMENTAL): Hemoglobin decreased from 12.4-10.6. Will continue to monitor. Patient okay with transfusion if needed. Lactic acidosis 01/31/2021 Assessment & Plan (01/31/2021 12:18 AM MANAGER ENVIRONMENTAL): Likely secondary to GI bleed. Continue IV fluids. Anorectal hemorrhage 01/30/2021 Assessment & Plan (01/31/2021 12:17 AM MANAGER ENVIRONMENTAL): Patient seen by GI. Continue Cipro and Flagyl. Clear liquid diet. H&H q.8. Medication side effect 12/07/2020 Irritable bowel syndrome with diarrhea History of GI diverticular bleed 10/26/2020 Rectal bleeding 03/04/2020 Type 2 diabetes mellitus wit h hyperglycemia, with long-term current use of insulin 08/10/2018 Assessment & Plan (12/07/2023 9:30 AM CDT): This is a chronic condition which is stable, at goal without hypoglycemia. Goal is less than 7-8%. Personally reviewed most recent A1c - Lab Results Component Value Date HGBA1C 7.9 12/07/2023 Personally reviewed POC blood sugar- not at goal of 80-180 Lab Results Component Value Date POCGLU 208 12/07/2023 Medication- Continue Soliqua 44 units daily Monitor blood sugar continuously with cgm. Monofilament foot exam completed. Protective senses -intact eGFR- 63 Kidney function-at goal Urine microalbumin/creatinine ratio - not at goal. Goal is <30. Continue losartan Assessment & Plan (08/06/2023 9:20 AM CDT): This is a chronic condition which is at goal . Goal is less than 7-8%. Personally reviewed most recent A1c - Lab Results Component Value Date HGBA1C 7.9 08/06/2023 Personally reviewed POC blood sugar- not at goal of 80-180 Lab Results Component Value Date POCGLU 251 08/06/2023 Medication- increase soliqua 44 units daily Monitor blood sugar continuously with cgm. Encouraged annual eye exam. Monofilament foot exam completed. Protective senses intact Personally reviewed CMP eGFR- 63 Kidney function-abnormal Urine microalbumin/creatinine ratio - slightly above goal. Goal is <30. Continue losartan Assessment & Plan (05/04/2023 9:31 AM CDT): This is a chronic condition which is inadequately controlled , not at goal of less than 8%. Personally reviewed most recent A1c - Lab Results Component Value Date HGBA1C 8.7 05/04/2023 Personally reviewed POC blood sugar- not at goal 80-180 Lab Results Component Value Date POCGLU 231 05/04/2023 Medication- increase Soliqua 42 units daily. Monitor blood sugar continuously with sensor. Encouraged annual eye exam. Monofilament foot exam completed. protective senses intact Personally reviewed CMP eGFR- 63 Kidney function-abnormal Urine microalbumin/creatinine ratio - not at goal <30 treated with losartan B/P today- at goal of <140/90. continue losartan Personally reviewed lipid panel. Not at Goal of less than 70. Continue simvastatin Assessment & Plan (01/30/2023 9:35 AM MANAGER ENVIRONMENTAL): This is a chronic condition which is stable but not at goal of less than 7%. Personally reviewed most recent A1c - Lab Results Component Value Date HGBA1C 8.5 01/30/2023 Personally reviewed POC blood sugar- not at goal 80-180 Lab Results Component Value Date POCGLU 316 01/30/2023 Medication- Increase soliqua 38 units daily Monitor blood sugar daily Encouraged annual eye exam. Monofilament foot exam completed. protective senses intact Personally reviewed CMP eGFR- 50 Kidney function- normal Urine microalbumin/creatinine ratio - at goal <30 treated with losartan B/P today- at goal of <140/90. continue losartan Personally reviewed lipid panel. at Goal of less than 70. Continue simvastatin Assessment & Plan (10/31/2022 11:17 AM CDT): This is a chronic condition which is poorly controlled, worsening not at goal of less than 8%. Personally reviewed most recent A1c - Lab Results Component Value Date HGBA1C 8.5 10/31/2022 Personally reviewed POC blood sugar- at goal 80-180 Lab Results Component Value Date POCGLU 157 10/31/2022 Medication- increase soliqua 34 units daily Monitor blood sugar 2 times a day. Encouraged annual eye exam. Monofilament foot exam completed. protective senses intact Personally reviewed CMP eGFR- 50 Kidney function- abnormal Urine microalbumin/creatinine ratio - at goal <30 treated with losartan B/P today- at goal of <140/90. continue losartan Personally reviewed lipid panel. Not at Goal of less than 70. Continue simvastatin. Assessment & Plan (07/31/2022 9:19 AM CDT): This is a chronic condition which is worsening not at goal of less than 8%. Personally reviewed most recent A1c - Lab Results Component Value Date HGBA1C 8.3 07/31/2022 Personally reviewed POC blood sugar- not at goal 80-180 Lab Results Component Value Date POCGLU 205 07/31/2022 Medication- increase Soliqua 28 units daily. If blood sugars are not consistently at 150 after 4-5 days, increase soliqua to 30 units daily. Monitor blood sugar continuously with freestyle nae 2 sensor. Encouraged annual eye exam. Monofilament foot exam completed. protective senses diminished but intact Personally reviewed CMP eGFR- 50 Kidney function-abnormal Urine microalbumin/creatinine ratio - at goal <30 treated with losartan B/P today- at goal of <140/90. continue losartan Personally reviewed lipid panel. at Goal of less than 70. Continue simvastatin Assessment & Plan (05/01/2022 9:29 AM CDT): This is a chronic condition which is adequately controlled at goal of less than 8%. Personally reviewed most recent A1c - Lab Results Component Value Date HGBA1C 7.9 05/01/2022 Personally reviewed POC blood sugar- close to goal 80-180 Lab Results Component Value Date POCGLU 182 05/01/2022 Medication- Continue Soliqua 22-24 units daily. No history of pancreatitis. Monitor blood sugar continuously with Freestyle Libre2 Encouraged annual eye exam. Monofilament foot exam completed, protective senses intact, Urine microalbumin/creatinine ratio -at goal <30. Continue Losartan. Personally reviewed labs: CMP, GFR- 69 Kidney function- normal. B/P today- at goal of <140/90. continue Losartan Personally reviewed LDL - 59. at Goal of less than 70 Continue simvastatin. No history of macrovascular disease - CVA, [place]. Freestyle Nae 2 continuous glucose monitor applied from 04/18/2022 to 05/01/2022 This device was placed for monitor and treatment of blood sugar. Interpretation of data- In target 63% of the time with soliqua 22-24 units daily without hypoglycemia. Assessment & Plan (12/30/2021 9:27 AM MANAGER ENVIRONMENTAL): This is a chronic condition which is at goal with Soliqua 22 -24 units daily Personally reviewed last a1c- 7.5% at goal less than 8% due to age. Personally reviewed blood sugar -163at goal 80-180 Medication- continue Soliqua 22-24 units daily. No history of pancreatitis. Monitor blood sugar continuously with Freestyle Libre2 Encouraged annual eye exam. Monofilament foot exam completed, protective senses intact, Urine microalbumin/creatinine ratio -<30 . currently on losartan, goal <30 Personally reviewed labs: CMP, GFR- 69 Kidney function- normal. B/P today- at goal of <140/90. continue Losartan Personally reviewed LDL - 59. currently on simvastatin. at Goal of less than 70 No history of macrovascular disease - CVA, [place]. Freestyle Nae 2 continuous glucose monitor applied from 12/17/21 to 12/30/21 This device was placed for monitor and treatment of blood sugar. Interpretation of data- In target 77% of the time with soliqua 22-24 units daily without hypoglycemia. Assessment & Plan (08/22/2021 9:37 AM CDT): This is a chronic condition which is improving and at goal with Soliqua 22 units daily as per cgm Personally reviewed last a1c- 7.4% at goal less than 8% due to age. Personally reviewed blood sugar -116 at goal 80-180 Medication- continue Soliqua 22units daily. No history of pancreatitis. Monitor blood sugar continuously with Freestyle Libre2 Encouraged annual eye exam. Monofilament foot exam completed, protective senses intact, Urine microalbumin/creatinine ratio -<30 . currently on losartan, goal <30 Personally reviewed labs: BUN- 15, creatinine-1.09 GFR- 69 Kidney function- normal. Labs per care everywhere. B/P today- 120/68, currently on losartan. At goal blood pressure is <140/90 and as close to 120/80 as possible. Personally reviewed LDL - 59. currently on simvastatin. at Goal of less than 70 No history of macrovascular disease - CVA, [place]. Freestyle Nae 2 continuous glucose monitor applied from 08/09/21 to 08/22/21 This device was placed for monitor and treatment of blood sugar. Interpretation of data- In target 71% of the time with soliqua 22 units daily without hypoglycemia. Assessment & Plan (05/16/2021 11:00 AM CDT): This is a chronic condition which is improving and at goal with Soliqua 22 units daily as per cgm Personally reviewed last a1c- 10.8 not at goal less than 7% Personally reviewed blood sugar -116 at goal 80-180 Medication- continue Soliqua 22units daily. No history of pancreatitis. Monitor blood sugar continuously with Freestyle Libre2 Encouraged annual eye exam. Monofilament foot exam completed, protective senses intact, Urine microalbumin/creatinine ratio -<30 . currently on losartan, goal <30 Personally reviewed labs: BUN- 15, creatinine-1.09 GFR- 69 Kidney function- normal. Labs per care everywhere. B/P today- 140/60 , currently on losartan Goal blood pressure is <140/90 and as close to 120/80 as possible. Personally reviewed LDL - 59. currently on simvastatin. at Goal of less than 70 No history of macrovascular disease - CVA, [place]. Freestyle Nae 2 continuous glucose monitor applied from 05/03/21 to 05/16/21 This device was placed for monitor and treatment of blood sugar. Average blood sugar- 128 Variability- 18.1 % ( goal < 36%) Data Analysis Very High >250 mg/dl- 0% High 181-250 mg/dl 3 % Target 70-180 mg/dl 97 % Low 54-69 mg/dl 0 % Very Low <50 mg/dl 0 % Interpretation of data- In target 97% of the time with soliqua 22 units daily without hypoglycemia. Assessment & Plan (04/02/2021 6:11 PM MANAGER ENVIRONMENTAL): This is a chronic condition which is improving, but not at goal. Personally reviewed A1c today- 10.8 not at goal less than 7% Personally reviewed blood sugar -128 at goal 80-180 Medication- stop lantus and januvia. Start Soliqua 20 units daily. No history of pancreatitis. Monitor blood sugar continuously with Freestyle Libre2 Encouraged annual eye exam. Monofilament foot exam completed, protective senses intact, Urine microalbumin/creatinine ratio - needed. Unable to void. currently on losartan, goal <30 Personally reviewed labs: BUN- 15, creatinine-1.09 GFR- 69 Kidney function- normal. Labs per care everywhere. B/P today- 156/64 , currently on losartan Goal blood pressure is <140/90 and as close to 120/80 as possible. Personally reviewed LDL - needed, currently on simvastatin. Goal of less than 70 No history of macrovascular disease - CVA, [place]. Assessment & Plan (01/31/2021 12:17 AM MANAGER ENVIRONMENTAL): Sugars elevated on presentation. Currently improved. Continue Januvia. Will monitor on sliding scale and adjust as needed. 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 Symptom of occasional loose stools with fecal urgency. Drug-induced gynecomastia 02/04/2018 Overview (03/13/2021): Mild bilateral. Confirmed on bilateral diagnostic mammography 12/04/2017. Secondary to 1 year ADT in treatment for his prostate cancer. History of prostate cancer 12/30/2016 Overview (01/30/2021): Clinical stage IIA ([id number] Benjamín 3 + 4 histology and PSA 10.32) adenocarcinoma of the prostate. ??He was started on ADT February 2016 with a 6 month Eligard injection and completed prostate radiotherapy 05/22/2016. His 2nd and final 6 month Eligard injection was 09/02/2016. History of therapeutic radiation 12/30/2016 Overview (03/13/2021): ADT with leuprolide 45 mg IM injections February 2016 and 09/02/2016. Prostate radiotherapy, 79.20 Gy in 44 fractions, from 03/24/2016 thru 05/22/2016. Class 2 severe obesity due t o excess calories with serious comorbidity and body mass index (BMI) of 37.0 to 37.9 in adult 12/30/2016 Overview (03/13/2021): BMI 33.57 on 08/10/2018. Assessment & Plan (12/07/2023 9:31 AM CDT): This is a chronic condition which continues 1 lbs. Weight loss since last office visit Encouraged healthy eating which includes a low carb diet. Avoiding processed foods, sweets and fried foods. Encouraged 30 minutes of walking at least 5 days per week Discussed that exercise can be broken down into small sessions- for example 2- 15 minutes sessions or 3- 10 minutes sessions. Assessment & Plan (08/06/2023 9:23 AM CDT): This is a chronic condition which is improving 3 lbs. Weight loss since last office visit Encouraged healthy eating which includes a low carb diet. Avoiding processed foods, sweets and fried foods. Encouraged 30 minutes of walking at least 5 days per week He reports enjoying eating the vegetables out of his garden Assessment & Plan (05/04/2023 9:33 AM CDT): This is a chronic condition which is stable 1 lb weight gain since last office visit Increased activity will begin occurring since it is spring He enjoys working in the garden and he has fruit trees Assessment & Plan (01/30/2023 9:33 AM MANAGER ENVIRONMENTAL): This is a chronic condition which continues 2 lb weight gain since last office visit Encouraged healthy eating and exercise Diverticulitis Resolved Problems Problem Noted Date Diagnosed Date Resolved Date Morbid (severe) obesity due to excess calories 07/31/2022 01/30/2023 Assessment & Plan (07/31/2022 9:24 AM CDT): This is a chronic condition which is improving 4 lb weight loss since last office visit Discussed eating healthy and staying active He is working still as a [employer] Encounters Date Type Department Care Team Description 01/22/2024 10:38 AM MANAGER ENVIRONMENTAL Anesthesia Event [address] [address] Melchor Norwood MD McDowell, Juri Osmell, MD 01/22/2024 10:00 AM MANAGER ENVIRONMENTAL - 01/22/2024 10:30 AM MANAGER ENVIRONMENTAL Surgery [address] [address] Shaun Tenorio MD COLON BIOPSY 01/22/2024 8:56 AM MANAGER ENVIRONMENTAL - 01/22/2024 12:02 PM MANAGER ENVIRONMENTAL Hospital Encounter [facility] [address] [place] [address] Shaun Tenorio MD Personal history of colonic polyps; Encounter for screening colonoscopy; History of colonic polyps Discharge Disposition: Discharge to home or self care from Last 3 Months Immunizations Name Administration Dates Next Due Influenza, Quadrivalent, Split, Intramuscular ,11/25/2018 Influenza, Trivalent, IM (MDV) 10/28/2011,2011 Pneumococcal Polysaccharide PPV23 05/05/2012 Tdap 05/05/2012 ZOSTER LIVE 10/08/2012 Surgical History Surgery Date Site/Laterality Comments COLONOSCOPY 02/17/2020 - 02/15/2021 COLONOSCOPY 01/22/2024 Medical History Medical History Date Comments Rectal bleeding Diabetes (HCC) Hypertension Cancer (CMS/HCC) (HCC) Social History Tobacco Use Types Packs/Day Years Used Date Smoking Tobacco: Former Cigarettes S tarted: 1971 Smokeless Tobacco: Former Chew Tobacco Cessation:Counseling Given: Not Answered AUDIT-C Answer Date Recorded Q1: How often do you have a drink containing alc ohol? Monthly or less 01/22/2024 Average Number of Drinks Not on file 024 Frequency of Binge Drinking Not on file 07/2023 Personal Safety Answer Date Recorded Have you ever been in or are you currently in a harmful physical or emotional relationship or is someone making you feel afraid or unsafe? Denies 01/22/2024 Sex and Gender Information Value Date Recorded Sex Assigned at Not on file Legal Sex Male 1:50 AM MANAGER ENVIRONMENTAL Gender Identity Not on file Sexual Orientation Not on file Obstetrics History Last Filed Vital Signs Vital Sign Reading Time Taken Comments Blood Pressure 120/70 01/22/2024 11:43 AM MANAGER ENVIRONMENTAL Pulse 59 01/22/2024 11:43 AM MANAGER ENVIRONMENTAL Temperature 37.1 ??C (98.8 ??F) 01/22/2024 11:[address] Respiratory Rate 16 01/22/2024 11:43 AM MANAGER ENVIRONMENTAL Oxygen Saturation 99% 01/22/2024 11:43 AM MANAGER ENVIRONMENTAL Inhaled Oxygen Concentration - - Weight 88.5 kg (195 lb) 01/22/2024 9:10 AM MANAGER ENVIRONMENTAL Height 157.5 cm (5' 2 ) 01/22/2024 9:10 AM MANAGER ENVIRONMENTAL Body Mass Index 35.67 01/22/2024 9:10 AM MANAGER ENVIRONMENTAL Plan of Treatment Health Maintenance Due Date Last Done Comments Depression Screening 1940 Hepatitis B Screening 04/22/1958 Well Visit 65+ 2006 Zoster Vaccine (2 of 3) 12/03/2012 10/08/2012 Dilated Eye Exam 05/17/2022 05/17/2021 Covid-19 Vaccine (2023-2 5 season) 2023 01/06/2022, 06/06/2021, 12/13/2020, Additional history exists Influenza Vaccine (#1) 2023 , 12/13/2020, 12/08/2019, Additional history exists Hemoglobin A1C 06/06/2024 12/07/2023, 07/18, 05/04/2023, Additional history exists Albumin Creatinine Ratio, Urine 12/06/2024 12/07/2023, 01/30/2023, 12/30/2021 Foot Exam 12/06/2024 12/07/2023, 07/18, 05/04/2023, Additional history exists Lipid Panel 12/06/2024 12/07/2023, 01/16, 12/30/2021, Additional history exists eGFR 12/06/2024 12/07/2023, 01/16, 12/30/2021, Additional history exists Fall Risk Assessment 01/21/2025 01/22/2024 DTaP/Tdap/Td Vaccine (3 - Td or Tdap) 02/14/2029 02/14/2019, 05/05/2012 Pneumococcal vaccine 65+ Completed 022, 01/07/2021, 12/07/2020, Additional history exists Procedures Procedure Name Priority Date/Time Associated Diagnosis Comments SURGICAL PATHOLOGY STAT 01/22/2024 1: 46 PM MANAGER ENVIRONMENTAL History of colonic polyps Encounter for screening colonoscopy COLON BIOPSY 01/22/2024 10:29 AM MANAGER ENVIRONMENTAL Personal history of colonic polyps Encounter for screening colonoscopy POCT GLUCOSE DEVICE Routine 01/22/2024 9 :25 AM MANAGER ENVIRONMENTAL COLONOSCOPY 01/22/2024 8:57 AM MANAGER ENVIRONMENTAL EGFR Routine 12/07/2023 11:26 AM CDT Type 2 diabetes mellitus with hyperglycemia, with long-term current use of insulin (HCC) LIPID PANEL Routine 12/07/2023 11:26 AM CDT Type 2 diabetes mellitus with hyperglycemia, with long-term current use of insulin (HCC) ALBUMIN CREATININE RATIO, URINE Routine 12/07/2023 11:26 AM CDT Type 2 diabetes mellitus with hyperglycemia, with long-term current use of insulin (HCC) POCT HEMOGLOBIN A1C Routine 12/07/2023 9 :07 AM CDT Type 2 diabetes mellitus with hyperglycemia, with long-term current use of insulin (HCC) DIABETIC EYE EXAM Routine 05/17/2021 from Last 3 Months or Most Recently Relevant to Health Maintenance Results * Surgical pathology (01/22/2024 1:46 PM MANAGER ENVIRONMENTAL) Tissue (Polyp(s), colon/colorectal, esophageal, gastric) 01/22/2024 11:10 AM MANAGER ENVIRONMENTAL Narrative PATHOLOGY [facility] - 01/26/2024 2:06 PM MANAGER ENVIRONMENTAL [facility] results best viewed via link to PDF [facility] Department of Pathology [address] [place] [id number] Note to Patients: This report may contain a detailed description of human tissue sent by a health care provider to the laboratory for pathologic evaluation. The content of this report is essential for diagnosis and may provide important critical findings. This information may be unfamiliar to patients to review without a medical professional present. It is advised that the patient review this report in the presence of a health care provider who can answer questions and explain the details. Final Report Patient Name: ??CHRISSIE CALLAHAN Address: ??[address], ??[place], [place] [address] Gender: ??M : ??1940 (Age: 83) Service: ??Gastro Location: ??[facility] Hospital #: ??[id number] Patient Type: ??[facility] Accession # ?[id number] Taken: ??01/22/2024 Received: ??01/22/2024 Accessioned: ??01/22/2024 Reported: ??01/26/2024 Physician(s):Dr. Shaun Tenorio M.D. Diagnosis: Colon, cecum, biopsies: ? - Colonic mucosa with benign intramucosal lymphoid aggregates. ? - Sparse background fecal material (see microscopic description). ? - No evidence of dysplasia or malignancy. Patrice Castañeda MD Report Electronically Reviewed and Signed Out By ??Patrice Castañeda MD ??01/26/2024 14:06:46 Specimen(s) Received: A: Cecum polyp x 2 Microscopic Description: Microscopic examination of routine and deeper levels shows a polypoid fragment of colonic mucosa with benign-appearing intramucosal lymphoid aggregates. ??Sparse background fecal material is also seen. ??The fragment shows no definitive adenomatous or hyperplastic glandular changes. ??Of note, lymphoid aggregates may produce a mucosal bump endoscopically interpreted as a colon polyp; ??fecal material may also endoscopically mimic a colon polyp. ??Clinical correlation is recommended. Clinical History: Personal history of colonic polyps. ??Screening colonoscopy. ?? Gross Description: The specimen is submitted in a single formalin filled container labeled CHRISSIE CALLAHAN and cecum polyp x 2 . ??It is a fragment of bliss tissue measuring 6 mm and a <1 mm bliss brown speck* that may represent fecal material or tissue. ??All in one cassette. *Note: Given its small size, the <1 mm bliss brown speck may not survive processing. Ayaka Blackburn R.N., P.A./Jelena Pyle M.D. REPORT IMAGES AND SCANNED DOCUMENTS, IF INCLUDED, ONLY VIEWABLE IN PDF VERSION OF REPORT The performance characteristics of some immunohistochemical stains, fluorescence in-situ hybridization tests and immunophenotyping by flow cytometry cited in this report (if any) were determined by the Surgical Pathology Department at [facility] as part of an ongoing quality assurance associate program and in compliance with federally mandated regulations drawn from the Clinical Laboratory Improvement Act of 1988 (CLIA '88). ??Some of these tests rely on the use of analyte specific reagents and are subject to specific labeling requirements by the US Food and Drug Administration. ??Such diagnostic tests may only be performed in a facility that is certified by the Department of Health and Human Services as a high complexity laboratory under CLIA '88. The FDA has determined that such clearance or approval is not necessary. ??This test is used for clinical purposes. ??It should not be regarded as investigational or for research. ??Nevertheless, federal rules concerning the medical use of analyte specific reagents require that the following disclaimer be attached to the report: This test was developed and its performance characteristics determined by the Surgical Pathology Department [facility]. ??It has not been cleared or approved by the U. S. Food and Drug Administration. Note for decalcified specimens: This assay has not been validated on decalcified tissues. Results should be interpreted with caution given the possibility of false negativity on decalcified specimens Shaun Tenorio MD LAB PATHOLOGY ORDERABLES F inal Result Performing Organization Address [facility]/ZIP Co de Phone Number PATHOLOGY [facility] [address] [place] [address] * POCT glucose (01/22/2024 9:25 AM MANAGER ENVIRONMENTAL) Glucose, POC 149 70 - 199 mg/dL Blood 01/22/2024 9:25 AM MANAGER ENVIRONMENTAL 01/22/2024 9:25 AM MANAGER ENVIRONMENTAL Shaun Tenorio MD LAB POCT ORDERABLES - LEONA CE Final Result Performing Organization Address [facility] Co de Phone Number [facility]ER [facility] [address] [facility] Department [place] [address] * Colonoscopy (01/22/2024 8:57 AM MANAGER ENVIRONMENTAL) Anatomical Region Laterality Modality Other Narrative Procedure Note Shaun Tenorio MD - 01/22/2024 8:57 AM CST [place] Patient Name: Chrissie Callahan Procedure Date: 01/22/2024 8:57 AM Date of : 1940 Admit Type: Outpatient Age: 83 Gender: Male Attending MD: Shaun Tenorio M.D. Room: [facility] ENDOSCOPY ROOM 1 Note Status: Finalized Patient Profile: This is an 83 year old male. History of colonpolyps. Procedure: Colonoscopy Indications: High risk colon cancer surveillance: Personalhistory of colonic polyps, Last colonoscopy: 2020 Referring MD: Demetrio Weston PA-C Providers: Shaun Tenorio M.D. Impression: - Two 3 to 4 mm polyps in the descending colon andin the cecum, removed with a jumbo cold forceps.Resected and retrieved. - Diverticulosis in the entire examined colon. - Internal hemorrhoids. Recommendation: - Await pathology results. - Repeat colonoscopy is not recommended for surveillance. - Continue present medications. Medicines: Monitored Anesthesia Care Complications: No immediate complications. Estimated Blood Loss: Estimated blood loss: none. Procedure: Pre-Anesthesia Assessment: - Prior to the procedure, a History and Physicalwas performed, and patient medications and allergieswere reviewed. The patient's tolerance of previous anesthesia was also reviewed. The risks andbenefits of the procedure and the sedation options and risks were discussed with the patient. All questions were answered, and informed consent was obtained. Prior Anticoagulants: The patient has taken noanticoagulant or antiplatelet agents. ASA Grade Assessment: Per anesthesia note and evaluation. After reviewing the risks and benefits, the patient was deemed in satisfactory condition to undergo the procedure. The benefits, risks and alternatives of theprocedure and sedation were discussed and informed consentwas obtained. All questions were answered. Please referto the signed informed consent document in the medical record. The bowel preparation used was Miralax via split dose instruction. The bowel preparation usedwas bisacodyl tablets via split dose instruction. The scope was passed under direct vision. The Pediatric Colonoscope [id number] was introduced through the anus and advanced to the the cecum, identified by appendiceal orifice and ileocecalvalve. The quality of the bowel preparation was good.Bowel prep was administered using a split dose. Findings: The perianal and digital rectal examinations were normal. The appendiceal orifice appeared normal. Two semi-sessile polyps were found in the descending colon and cecum. The polyps were 3 to 4 mm in size. These polyps were removed with a jumbo cold forceps. Resection and retrieval were complete. Multiple small and large-mouthed diverticula were found in the entire colon. Internal hemorrhoids were found during retroflexion. The hemorrhoids were medium-sized. Electronically signed by Shaun Tenorio M.D. Shaun Tenorio M.D. 01/22/2024 11:27:15 AM Number of Addenda: 0 Note Initiated On: 01/22/2024 8:57 AM Procedure Code(s): --- Professional --- 08769, Colonoscopy, flexible; with biopsy, single or multiple Diagnosis Code(s): --- Professional --- Z86.010, Personal history of colonic polyps K64.8, Other hemorrhoids D12.4, Benign neoplasm of descending colon D12.0, Benign neoplasm of cecum K57.30, Diverticulosis of large intestine without perforation orabscess without bleeding CPT copyright 2020 [employer]. All rights reserved. The codes documented in this report are preliminary and upon pump service supervisor reviewmay be revised to meet current compliance requirements. Recognized by the [employer] for promoting quality in endoscopy us Shaun Tenorio MD ENDOSCOPY PROCEDURES Final Result * (ABNORMAL) eGFR (12/07/2023 11:26 AM CDT) eGFR 33(L) >=60 mL/min/1. 73 m2 Comment: Interpretive Data Reference Interval Normal ?>/= 90 mL/min/1.73m2 Mildly decreased* ? 60 - 89 mL/min/1.73m2 Mildly to moderately decreased ?45 - 59 mL/min/1.73m2 Moderately to severely decreased ??30 - 44 mL/min/1.73m2 Severely decreased ?15 - 29 mL/min/1.73m2 Kidney Failure ?< 15 ??mL/min/1.73m2 *Relative to young adult level Estimated glomerular filtration rate is determined by the 2020 CKD-EPI equation recommended by the National Kidney Foundation (A Unifying Approach to GFR Estimation: Recommendations of the NKF-ASK Task Force on Reassessing the Inclusion of Race in Diagnosing Kidney Disease, JASN 2020). The CKD-EPI equation should not be used for patients with unstable renal function and has not been validated in children and those over 70. Current interpretive data was last reviewed 2020. Blood 12/07/2023 11:2 6 AM CDT 12/07/2023 9:04 PM CDT us Mary Jo Atkinson NP LAB BLOOD ORDERABLES Final Resu lt [facility] [address] [place] [address] * (ABNORMAL) Albumin Creatinine Ratio, Urine (12/07/2023 11:26 AM CDT) Albumin Ur 80.8 mg/L Comment: Interpretive Data No reference range established. Current interpretive data was last revised 2018. Creatinine Ur 115.2 mg/dL [facility] Comment: Interpretive Data No reference range established. Current interpretive data was last revised 2018. Albumin Creatinine Ratio, Ur 70(H) 1 - 29 mg/g [facility] Urine 12/07/2023 11:2 6 AM CDT 12/07/2023 7:18 PM CDT us Mary Jo Atkinson NP LAB URINE ORDERABLES Final Resu lt [facility] [address] [address] Department [place] [address] * (ABNORMAL) Lipid panel (12/07/2023 11:26 AM CDT) Pathologist [facility] Cholesterol 157 30 - 199 mg/dL Comment: Interpretive Data Ages < or = 19 years ??Acceptable: ? <170 mg/dL ??Borderline high: ??170-199 mg/dL ??High: ? >or= 200 mg/dL Ages > or = 20 years ??Desirable: ?<200 mg/dL ??Borderline high: ??200-239 mg/dL ??High: ? >or= 240 mg/dL Literature References: 1. Expert Panel on Integrated Guidelines for Cardiovascular Health and Risk Reduction in Children and Adolescents. Pediatrics 2011;128:S213 2. NCEP Expert Panel. Circulation 2004;110:227 Current Interpretive Data was last revised on 2017. Triglycerides 244(H) <=149 mg/dL [facility] Comment: Interpretive Data Ages < or = 9 years ??Acceptable: ? <75 mg/dL ??Borderline high: ??75-99 mg/dL ??High: ? >or= 100 mg/dL Ages 10 to 20 years ??Acceptable: ? <90 mg/dL ??Borderline high: ??90-129 mg/dL ??High: ? >or= 130 mg/dL Ages > or = 20 years ??Desirable: ?<150 mg/dL ??Borderline high: ??150-199 mg/dL ??High: ? 200-499 mg/dL ?Very high: ?? >or= 499 mg/dL Literature References: 1. Expert Panel on Integrated Guidelines for Cardiovascular Health and Risk Reduction in Children and Adolescents. Pediatrics 2011;128:S213 2. NCEP Expert Panel. Circulation 2004;110:227 Current Interpretive Data was last revised on 2017. HDL 35(L) >=40 mg/dL [facility] Comment: Interpretive Data Ages < or = 19 years ??Acceptable: ? >45 mg/dL ??Borderline low: ?? 40-45 mg/dL ??Low: ? <40 mg/dL Ages > or = 20 years ??Desirable: ?>or= 60 mg/dL ??Low: ? <40 mg/dL Literature References: 1. Expert Panel on Integrated Guidelines for Cardiovascular Health and Risk Reduction in Children and Adolescents. Pediatrics 2011;128:S213 2. NCEP Expert Panel. Circulation 2004;110:227 Current Interpretive Data was last revised on 2017. LDL, calculated 81 <=129 mg/dL [facility] Comment: Interpretive Data Ages < or = 19 years ??Acceptable: ? <110 mg/dL ??Borderline high: ??110-129 mg/dL ??High: ?>or= 130 mg/dL Ages > or = 20 years ??Optimal: ? <100 mg/dL ??Near optimal: ?100-129 mg/dL ??Borderline high: ?? 130-159 mg/dL ??High: ?>160 mg/dL Calculated using the Sanford LDL-C estimating equation. This equation was implemented on 2023. Prior to this date LDL-C was estimated using the Friedewald equation. Literature References: 1. Expert Panel on Integrated Guidelines for Cardiovascular Health and Risk Reduction in Children and Adolescents. Pediatrics 2011;128:S213 2. NCEP Expert Panel. Circulation 2004;110:227 3. Sanford Cai et al. ÓSCAR Cardiol. 2020 June 16;5(5):540-548. doi: 10.1001/jamacardio.2020.0013 Current Interpretive Data was last revised on 2023. Non-HDL Cholesterol 122 mg/dL [facility] Comment: Interpretive Data Ages < or = 19 years ??Acceptable: ?<120 mg/dL ??Borderline high: ??120-144 mg/dL ??High: ?>145 mg/dL Ages > or = 20 years ??When triglycerides are >200 mg/dL, Non-HDL cholesterol is a secondary target of ? therapy with treatment goals that are 30 mg/dL greater than the LDL cholesterol target. ? Literature References: 1. Expert Panel on Integrated Guidelines for Cardiovascular Health and Risk Reduction in Children and Adolescents. Pediatrics 2011;128:S213 2. NCEP Expert Panel. Circulation 2004;110:227 Current Interpretive Data was last revised on 2017. Chol/HDL ratio 4 [facility] Blood 12/07/2023 11:2 6 AM CDT 12/07/2023 7:18 PM CDT Narrative [facility] - 12/07/2023 9:50 PM CDT These lab test should be done fasting. This means do not eat or drink for at least 12 hours prior to getting your blood drawn. Has the patient been fasting for 8 hours or more?->Yes us Mary Jo Atkinson NP LAB BLOOD ORDERABLES Final Resu lt [facility] [id number] Department [place] [address] * POCT hemoglobin A1c (12/07/2023 9:07 AM CDT) Hemoglobin A1C, POC 7.9 4.0 - 5.6 % Blood 12/07/2023 9:07 AM CDT Mary Jo Atkinson NP POINT OF CARE TEST ORDERABLES F inal Result * Diabetic Eye Exam (05/17/2021) Historical Provider MD HEALTH MAINTENANCE Final Result from Last 3 Months or Most Recently Relevant to Health Maintenance Insurance MEDICARE SOLUTIONS Advance Directives For more information, please contact: [phone] * Full Code (Latest Code Status on File) Date Activated Date Inactivated Comments 01/22/2024 8:59 AM 01/22/2024 4:07 PM * Full Code Date Activated Date Inactivated Comments 01/22/2024 8:59 AM 01/22/2024 8:59 AM * Full Code Date Activated Date Inactivated Comments 01/30/2021 8:31 AM 02/01/2021 9:56 PM Care Teams Career Center Advisor Relationship Specialty Start Date End Date Demetrio Weston PA [address] [place] [address] PCP - General Family Practice 10/05/20
--- OUTSIDE RECORDS SUMMARY | 2024-03-17 08:45 | XMS_ITS | Clinical Summary ---
Author Organization [facility] Facility Address [address] [place] [id number] Care Team Providers Care Inspector Outside Production Name Role Phone Demetrio Weston Primary Care Provider [phone] Allergies Active Allergy Reactions Criticality Noted Date Comments Metformin 02/01/2024 Medications allopurinol (ZYLOPRIM) 100 MG tablet Take 1 tablet by mouth 1 (one) time each day Active aspirin 81 MG chewable tablet Chew 81 mg 1 (one) time each day Active Calcium Carb-Cholecalcife rol 600-25 MG-MCG capsule Take 1,000 Units by mouth 1 (one) time each day Active clotrimazole-beta methasone (LOTRISONE) cream Apply 90 application. topically in the morning and 90 application. in the evening. Active Soliqua 100-33 UNT-MCG/ML solution pen-injector Inject 100 mcg under the skin 1 (one) time each day 44 units per day 4 Active losartan (COZAAR) 100 MG tablet Take 1 tablet by mouth 1 (one) time each day Active omeprazole (PriLOSEC) [address] capsule Take 1 capsule by mouth 1 (one) time each day 9 Active simvastatin (ZOCOR) 10 MG tablet Take 1 tablet by mouth 1 (one) time each day Active Cobalamin Combinations (B-12) 100-5000 MCG sublingual tablet Take 1 capsule by mouth in the morning. Active Active Problems No known active problems Encounters Date Type Department Care Team Description 02/23/2024 Documentation Only [facility], [address] [address] Felipe Mclaughlin MD 02/01/2024 3:15 PM SOIL CONSERVATION AIDE Office Visit [facility], [facility] [address] [place] [address] Felipe Mclaughlin MD Chronic kidney disease stage 3B (HCC) (Primary Dx); Onychomycosis from Last 3 Months Family History Medical History Relation Comments Cancer Brother Cancer Paternal Grandmother Relation Status Comments Brother Father Mother Paternal Grandmother Social History Tobacco Use Types Packs/Day Years Used Date Smoking Tobacco: Former Cigarettes Alcohol Use Standard Drinks/Week Comments Not Currently 0 (1 standard drink = 0.6 oz pur e alcohol) Sex and Gender Information Value Date Recorded Sex Assigned at Not on file Legal Sex Male 11:25 AM EDT Gender Identity Not on file Sexual Orientation Not on file Last Filed Vital Signs Vital Sign Reading Time Taken Comments Blood Pressure 115/60 02/01/2024 3:18 PM SOIL CONSERVATION AIDE Pulse 90 02/01/2024 3:18 PM SOIL CONSERVATION AIDE Temperature 36.7 ??C (98 ??F) 02/01/2024 3:18 PM SOIL CONSERVATION AIDE Respiratory Rate 17 02/01/2024 3:18 PM SOIL CONSERVATION AIDE Oxygen Saturation 92% 02/01/2024 3:18 PM SOIL CONSERVATION AIDE Inhaled Oxygen Concentration - - Weight 93.4 kg (206 lb) 02/01/2024 3:18 PM SOIL CONSERVATION AIDE Height 157.5 cm (5' 2 ) 02/01/2024 3:18 PM SOIL CONSERVATION AIDE Body Mass Index 37.68 02/01/2024 3:18 PM SOIL CONSERVATION AIDE Plan of Treatment Upcoming Encounters Date Type Department Care Team (Late st Contact Info) Description 03/30/2024 2:00 PM SOIL CONSERVATION AIDE Office Visit [facility] [place], [facility] [address] [place] [address] Felipe Mclaughlin MD [address] [place] [address] [address] [place] [address] Health Maintenance Due Date Last Done Comments Influenza Vaccine (#1) 2023 3, 12/13/2020, 12/08/2019, Additional history exists Diabetes: Ophthalmology Exam 12/09/2023 Diabetes: Pedal Pulse Checked 12/09/2023 Diabetes: Sensory Foot Exam 12/09/2023 Diabetes: Visual Foot Exam 12/09/2023 Diabetes: Hemoglobin A1C 03/08/2024 12/07/2023, 02/17 Pneumococcal Vaccine: 65+ Years Completed 12/07/2020, 2017, 12/03/2016, Additional history exists Hepatitis B Vaccine Aged Out No longe r eligible based on patient's age to complete this topic Insurance [facility] MEDICARE Advance Directives Documents on File Type Date Recorded Patient Print Shop Helper Expl anation Advance Care Planning 03/10/2024 2:25 PM Care Teams Inspector Outside Production Relationship Specialty Start Date End Date Demetrio Weston PA [address] [place] [address] PCP - General Internal Medicine 12/09/23
--- OUTSIDE RECORDS SUMMARY | 2024-03-17 08:45 | XMS_ITS | Data Portability ---
Author Organization [facility] Address [address] [facility] [place] [address] Care Team Providers Care Freezer Person Name Role Phone NADINE WESTON Primary Care Provider SHANIKA HIGGINS Urologist Assessment No assessment recorded. Plan of Treatment Reminders Order Date Submit Date Provider Last Modified By Organization Details Last Modified Time Details Appointments None recorded. Lab CBC 2022 023 [facility], [address] [facility], [facility], [place], [address], 3 19:08:57 CBC 2023 024 [facility], [address] [facility], [facility], [place], [address], 4 10:16:25 CMP, serum or plasma 2023 024 [facility], [address] [facility], [place], [address], 4 10:16:23 lipid panel, serum 2023 024 [facility], [address] [facility], [facility], [place], [address], 4 10:16:23 HbA1c (hemoglobin A1c), blood 2023 024 LYNETTE In-Office Order, Internal Use Only DO Not Attach Compendium DO Not Attach Compendium, Do Not Delete/merge, [id number] 4 12:59:48 CBC 2023 024 [facility], [address] [facility], [place], [address], 4 10:14:33 CMP, serum or plasma 2023 024 [facility], [address] [facility], [facility], [place], [address], 4 10:14:30 lipid panel, serum 2023 024 [facility], [address] [facility], [facility], [place], [address], 10:14:29 Referral None recorded. Procedures None recorded. Surgeries None recorded. Imaging XR, knee [address] [facility], [address] [place], [address], 3 09:22:45 Medication Orders azithromyci n 500 mg tablet 2022 023 [facility], [address] [place] [address], [address], [place], [place], [id number], 4 14:56:34 azithromyci n 500 mg tablet 2022 023 LYNETTE [facility], [address] [place] [address], [address], [place], [place], [id number], 4 14:58:27 benzonatate 200 mg capsule 2022 023 LYNETTE [facility], [address] [place] [address], [address], [place], [place], [id number], 4 14:58:28 Patient TargetsNo targets recorded. Patient Instructions Encounter Date Encounter Id Patient Instructions Last Modified By Organization Details Last Modified Time 03/21/2022 [id number] A healthy lifestyle: care instructions jnanney Not available 03/21/2022 11:15:30 05/12/2022 [id number] A healthy lifestyle: care instructions jnanney Not available 05/12/2022 11:35:03 anemia: care instructions jnanney Not available 05/12/2022 11:35:03 01/27/2023 [id number] A healthy lifestyle: care instructions jnanney Not available 01/27/2023 11:08:05 04/23/2023 [id number] type 2 diabetes: care instructions jnanney Not available 04/23/2023 12:22:42 12/14/2023 [id number] A healthy lifestyle: care instructions jnanney Not available 12/14/2023 15:31:41 medicines to avoid with kidney disease: care instructions jnanney Not available 12/14/2023 15:31:41 hyperkalemia: care instructions jnanney Not available 12/14/2023 15:31:41 Reason for Referral None Reported. Results Created Date Observation Date Name Description Value Unit Range Abnormal Flag Note LastModifiedBy Organization Detail LastModifiedTime 05/13/1905/13/2022 CBC, PLATE LET, NO DIFFE RENTI AL WBC 10.4 K/uL 3.4-10 .8 Not Available [facility] [address] [place], [address], 05/13/2022 19:08:57 05/13/1905/13/2022 CBC, PLATE LET, NO DIFFE RENTI AL RBC 4.4 M/uL 4.5-6. 3 below low normal Not Available [facility] [address] [place], [address], 05/13/2022 19:08:57 05/13/19 23 05/13/2022 CBC, PLATE LET, NO DIFFE RENTI AL hemoglobin 12.7 g/dL 13.5-1 7.5 below low normal Not Available [facility] [address] [place], [address], 05/13/2022 19:08:57 05/13/1905/13/2022 CBC, PLATE LET, NO DIFFE RENTI AL hematocrit 39.1 % 40.0-5 2.0 below low normal Not Available [facility] [address] [place], [address], 05/13/2022 19:08:57 05/13/1905/13/2022 CBC, PLATE LET, NO DIFFE RENTI AL MCV 89 fL 80-95 Not Available [facility] [address] [place], [address], 05/13/2022 19:08:57 05/13/1905/13/2022 CBC, PLATE LET, NO DIFFE RENTI AL MCH 29 pg 27-32 Not Available [facility] [address] [place], [address], 05/13/2022 19:08:57 05/13/1905/13/2022 CBC, PLATE LET, NO DIFFE RENTI AL MCHC 33 g/dL 32-36 Not Available [facility] [address] [place], [address], 05/13/2022 19:08:57 05/13/1905/13/2022 CBC, PLATE LET, NO DIFFE RENTI AL RDW 14.4 % 11.5-1 4.5 Not Available [facility] [address] [place], [address], 05/13/2022 19:08:57 05/13/1905/13/2022 CBC, PLATE LET, NO DIFFE RENTI AL platelets 270 K/uL 155-37 9 MPV 10.6 FL 8.9-1 2.7 N Not Available [facility] [address] [place], [address], 05/13/2022 19:08:57 05/13/1905/13/2022 CBC, PLATE LET, NO DIFFE RENTI AL NRBC 0 % Not Available [facility] [address] [place] [address], [address], 05/13/2022 19:08:57 04/23/19 24 04/24/2023 LIPID PANEL cholesterol, total 144 mg/dL 100-19 9 Not Available [address], [address], 04/24/2023 10:16:23 04/23/19 24 04/24/2023 LIPID PANEL triglyceride s 329 mg/dL 0-149 above high normal Not Available [address], [address], 04/24/2023 10:16:23 04/23/19 24 04/24/2023 LIPID PANEL HDL cholesterol 31 mg/dL >39 below low normal Not Available [address], [address], 04/24/2023 10:16:23 04/23/19 24 04/24/2023 LIPID PANEL VLDL cholesterol joel 52 mg/dL 5-40 above high normal Not Available [address], [address], 04/24/2023 10:16:23 04/23/19 24 04/24/2023 LIPID PANEL LDL chol calc (nih) 61 mg/dL 0-99 Not Available [address], [address], 04/24/2023 10:16:23 04/23/19 24 04/24/2023 COMP. METAB OLIC PANEL (14) glucose 189 mg/dL 70-99 above high normal Not Available [address], [address], 04/24/2023 10:16:23 04/23/19 24 04/24/2023 COMP. METAB OLIC PANEL (14) BUN 26 mg/dL 8-27 Not Available [address], [address], 04/24/2023 10:16:23 04/23/19 24 04/24/2023 COMP. METAB OLIC PANEL (14) creatinine 1.54 mg/dL 0.76-1 .27 above high normal Not Available [address], [address], 04/24/2023 10:16:23 04/23/19 24 04/24/2023 COMP. METAB OLIC PANEL (14) eGFR 45 mL/mi n/1.7 3 >59 below low normal Not Available [address], [address], 04/24/2023 10:16:23 04/23/19 24 04/24/2023 COMP. METAB OLIC PANEL (14) BUN/creatini ne ratio 17 10-24 Not Available [address], [address], 04/24/2023 10:16:23 04/23/19 24 04/24/2023 COMP. METAB OLIC PANEL (14) sodium 138 mmol/ L 134-14 4 Not Available [address], [address], 04/24/2023 10:16:23 04/23/19 24 04/24/2023 COMP. METAB OLIC PANEL (14) potassium 4.7 mmol/ L 3.5-5. 2 Not Available [address], [address], 04/24/2023 10:16:23 04/23/19 24 04/24/2023 COMP. METAB OLIC PANEL (14) chloride 102 mmol/ L 96-106 Not Available [address], [address], 04/24/2023 10:16:23 04/23/19 24 04/24/2023 COMP. METAB OLIC PANEL (14) carbon dioxide, total 19 mmol/ L 20-29 below low normal Not Available [address], [address], 04/24/2023 10:16:23 04/23/19 24 04/24/2023 COMP. METAB OLIC PANEL (14) calcium 9.3 mg/dL 8.6-10 .2 Not Available [address], [address], 04/24/2023 10:16:23 04/23/19 24 04/24/2023 COMP. METAB OLIC PANEL (14) protein, total 7.2 g/dL 6.0-8. 5 Not Available [address], [address], 04/24/2023 10:16:23 04/23/19 24 04/24/2023 COMP. METAB OLIC PANEL (14) albumin 4.5 g/dL 3.7-4. 7 Not Available [address], [address], 04/24/2023 10:16:23 04/23/19 24 04/24/2023 COMP. METAB OLIC PANEL (14) globulin, total 2.7 g/dL 1.5-4. 5 Not Available [address], [address], 04/24/2023 10:16:23 04/23/19 24 04/24/2023 COMP. METAB OLIC PANEL (14) A/G ratio 1.7 1.2-2. 2 Not Available [address], [address], 04/24/2023 10:16:23 04/23/19 24 04/24/2023 COMP. METAB OLIC PANEL (14) bilirubin, total 0.3 mg/dL 0.0-1. 2 Not Available [address], [address], 04/24/2023 10:16:23 04/23/19 24 04/24/2023 COMP. METAB OLIC PANEL (14) alkaline phosphatase 74 IU/L 44-121 Not Available [address], [address], 04/24/2023 10:16:23 04/23/19 24 04/24/2023 COMP. METAB OLIC PANEL (14) AST (SGOT) 25 IU/L 0-40 Not Available [address], [address], 04/24/2023 10:16:23 04/23/19 24 04/24/2023 COMP. METAB OLIC PANEL (14) ALT (SGPT) 23 IU/L 0-44 Not Available [address], [address], 04/24/2023 10:16:23 04/23/19 24 04/24/2023 LITHO LINK CKD PROGR AM interpretati on Note Suppl ement al repor t is avail able. Not Available [address], [address], 04/24/2023 10:16:24 04/23/19 24 04/24/2023 LITHO LINK CKD PROGR AM pdf . Not Available [address], [address], 04/24/2023 10:16:24 04/23/19 24 04/24/2023 CARDI OVASC ULAR REPOR T interpretati on Note Suppl ement al repor t is avail able. Not Available [address], [address], 04/24/2023 10:16:25 04/23/19 24 04/24/2023 CARDI OVASC ULAR REPOR T pdf Not applic able Not Available [address], [address], 04/24/2023 10:16:25 04/23/19 24 04/24/2023 CBC, PLATE LET, NO DIFFE RENTI AL WBC 9.6 x10e3 /uL 3.4-10 .8 Not Available [address], [address], 04/24/2023 10:16:25 04/23/1904/24/2023 CBC, PLATE LET, NO DIFFE RENTI AL RBC 4.64 x10e6 /uL 4.14-5 .80 Not Available [address], [address], 04/24/2023 10:16:25 04/23/19 24 04/24/2023 CBC, PLATE LET, NO DIFFE RENTI AL hemoglobin 13.5 g/dL 13.0-1 7.7 Not Available [address], [address], 04/24/2023 10:16:25 04/23/19 24 04/24/2023 CBC, PLATE LET, NO DIFFE RENTI AL hematocrit 40.8 % 37.5-5 1.0 Not Available [address], [address], 04/24/2023 10:16:25 04/23/1904/24/2023 CBC, PLATE LET, NO DIFFE RENTI AL MCV 88 fL 79-97 Not Available [address], [address], 04/24/2023 10:16:25 04/23/19 24 04/24/2023 CBC, PLATE LET, NO DIFFE RENTI AL MCH 29.1 pg 26.6-3 3.0 Not Available [address], [address], 04/24/2023 10:16:25 04/23/19 24 04/24/2023 CBC, PLATE LET, NO DIFFE RENTI AL MCHC 33.1 g/dL 31.5-3 5.7 Not Available [address], [address], 04/24/2023 10:16:25 04/23/19 24 04/24/2023 CBC, PLATE LET, NO DIFFE RENTI AL RDW 13.5 % 11.6-1 5.4 Not Available [address], [address], 04/24/2023 10:16:25 04/23/19 24 04/24/2023 CBC, PLATE LET, NO DIFFE RENTI AL platelets 289 x10e3 /uL 150-45 0 Not Available [address], [address], 04/24/2023 10:16:25 04/23/19 24 04/23/2023 HbA1c (hemo globi n A1c), blood HbA1c 8.8 Not Available In-Office Order Internal Use Only DO Not Attach Compendium DO Not Attach Compendium, Do Not Delete/merge, [id number] 04/23/2023 12:22:09 12/14/1912/15/2023 LIPID PANEL cholesterol, total 163 mg/dL 100-19 9 Not Available [address], [address], 12/15/2023 10:14:28 12/14/1912/15/2023 LIPID PANEL triglyceride s 244 mg/dL 0-149 above high normal Not Available [address], [address], 12/15/2023 10:14:28 12/14/19 24 12/15/2023 LIPID PANEL HDL cholesterol 34 mg/dL >39 below low normal Not Available [address], [address], 12/15/2023 10:14:28 12/14/1912/15/2023 LIPID PANEL VLDL cholesterol joel 41 mg/dL 5-40 above high normal Not Available [address], [address], 12/15/2023 10:14:28 12/14/1912/15/2023 LIPID PANEL LDL chol calc (nih) 88 mg/dL 0-99 Not Available [address], [address], 12/15/2023 10:14:28 12/14/1912/15/2023 COMP. METAB OLIC PANEL (14) glucose 176 mg/dL 70-99 above high normal Not Available [address], [address], 12/15/2023 10:14:30 12/14/1912/15/2023 COMP. METAB OLIC PANEL (14) BUN 26 mg/dL 8-27 Not Available [address], [address], 12/15/2023 10:14:30 12/14/1912/15/2023 COMP. METAB OLIC PANEL (14) creatinine 1.71 mg/dL 0.76-1 .27 above high normal Not Available [address], [address], 12/15/2023 10:14:30 12/14/19 24 12/15/2023 COMP. METAB OLIC PANEL (14) eGFR 39 mL/mi n/1.7 3 >59 below low normal Not Available [address], [address], 12/15/2023 10:14:30 12/14/19 24 12/15/2023 COMP. METAB OLIC PANEL (14) BUN/creatini ne ratio 15 10-24 Not Available [address], [address], 12/15/2023 10:14:30 12/14/19 24 12/15/2023 COMP. METAB OLIC PANEL (14) sodium 139 mmol/ L 134-14 4 Not Available [address], [address], 12/15/2023 10:14:30 12/14/1912/15/2023 COMP. METAB OLIC PANEL (14) potassium 4.5 mmol/ L 3.5-5. 2 Not Available [address], [address], 12/15/2023 10:14:30 12/14/19 24 12/15/2023 COMP. METAB OLIC PANEL (14) chloride 104 mmol/ L 96-106 Not Available [address], [address], 12/15/2023 10:14:30 12/14/19 24 12/15/2023 COMP. METAB OLIC PANEL (14) carbon dioxide, total 22 mmol/ L 20- Not Available [address], [address], 12/15/2023 10:14:30 12/14/19 24 12/15/2023 COMP. METAB OLIC PANEL (14) calcium 9.0 mg/dL 8.6-10 .2 Not Available [address], [address], 12/15/2023 10:14:30 12/14/19 24 12/15/2023 COMP. METAB OLIC PANEL (14) protein, total 6.9 g/dL 6.0-8. 5 Not Available [address], [address], 12/15/2023 10:14:30 12/14/19 24 12/15/2023 COMP. METAB OLIC PANEL (14) albumin 4.3 g/dL 3.7-4. 7 Not Available [address], [address], 12/15/2023 10:14:30 12/14/19 24 12/15/2023 COMP. METAB OLIC PANEL (14) globulin, total 2.6 g/dL 1.5-4. 5 Not Available [address], [address], 12/15/2023 10:14:30 12/14/19 24 12/15/2023 COMP. METAB OLIC PANEL (14) bilirubin, total 0.3 mg/dL 0.0-1. 2 Not Available [address], [address], 12/15/2023 10:14:30 12/14/19 24 12/15/2023 COMP. METAB OLIC PANEL (14) alkaline phosphatase 59 IU/L 44-121 Not Available [address], [address], 12/15/2023 10:14:30 12/14/19 24 12/15/2023 COMP. METAB OLIC PANEL (14) AST (SGOT) 19 IU/L 0-40 Not Available [address], [address], 12/15/2023 10:14:30 12/14/19 24 12/15/2023 COMP. METAB OLIC PANEL (14) ALT (SGPT) 18 IU/L 0-44 Not Available [facility] & [address], [address], 12/15/2023 10:14:30 12/14/1912/15/2023 LITHO LINK CKD PROGR AM interpretati on Note Suppl ement al repor t is avail able. Not Available [facility] & [address], [address], 12/15/2023 10:14:32 12/14/1912/15/2023 LITHO LINK CKD PROGR AM pdf . Not Available [facility] [place] & [address], [address], 12/15/2023 10:14:32 12/14/1912/15/2023 CARDI OVASC ULAR REPOR T interpretati on Note Suppl ement al repor t is avail able. Not Available [address], [address], 12/15/2023 10:14:32 12/14/1912/15/2023 CARDI OVASC ULAR REPOR T pdf Not applic able Not Available [facility] & [address], [address], 12/15/2023 10:14:32 12/14/1912/15/2023 CBC, PLATE LET, NO DIFFE RENTI AL WBC 9.1 x10e3 /uL 3.4-10 .8 Not Available [address], [address], 12/15/2023 10:14:33 12/14/1912/15/2023 CBC, PLATE LET, NO DIFFE RENTI AL RBC 4.14 x10e6 /uL 4.14-5 .80 Not Available [address], [address], 12/15/2023 10:14:33 12/14/1912/15/2023 CBC, PLATE LET, NO DIFFE RENTI AL hemoglobin 11.9 g/dL 13.0-1 7.7 below low normal Not Available [address], [address], 12/15/2023 10:14:33 12/14/1912/15/2023 CBC, PLATE LET, NO DIFFE RENTI AL hematocrit 37.6 % 37.5-5 1.0 Not Available [address], [address], 12/15/2023 10:14:33 12/14/1912/15/2023 CBC, PLATE LET, NO DIFFE RENTI AL MCV 91 fL 79-97 Not Available [address], [address], 12/15/2023 10:14:33 12/14/1912/15/2023 CBC, PLATE LET, NO DIFFE RENTI AL MCH 28.7 pg 26.6-3 3.0 Not Available [address], [address], 12/15/2023 10:14:33 12/14/1912/15/2023 CBC, PLATE LET, NO DIFFE RENTI AL MCHC 31.6 g/dL 31.5-3 5.7 Not Available [address], [address], 12/15/2023 10:14:33 12/14/1912/15/2023 CBC, PLATE LET, NO DIFFE RENTI AL RDW 14.0 % 11.6-1 5.4 Not Available [address], [address], 12/15/2023 10:14:33 12/14/1912/15/2023 CBC, PLATE LET, NO DIFFE RENTI AL platelets 256 x10e3 /uL 150-45 0 Not Available [facility] & [address], [place], [address], 12/15/2023 10:14:33 05/13/19 23 05/12/2022 XR, knee No observ ation record ed. [facility] [address] [place], [address], 05/12/2022 17:14:05 05/13/19 23 05/12/2022 XR, knee No observ ation record ed. [facility] [address] [place], [address], 05/12/2022 17:14:05 02/12/20 24 02/12/2024 US, renal No observ ation record ed. [facility] [address] [place], [address], 02/12/2024 13:27:12 02/12/20 24 02/12/2024 US, renal No observ ation record ed. [facility] [address] [place], [address], 03/14/2024 10:13:53 03/03/19 25 03/03/2024 US, pelvi s No observ ation record ed. [facility] [address] [place], [address], 03/03/2024 16:20:04 Result Notes None recorded. Problems Name Problem SNOMED Code Status Onset Date Resolution Date Notes Provider Name and Address Organization Details Recorded Time Type 2 diabetes mellitus without complication [id number] Active 2022 Not Available [facility] 14:02:27 Problem Notes None recorded. Procedures Surgical History Date Name Laterality Status Provider Name and Address Organization Details Recorded Time 02/16/19 21 colonoscopy completed Lauryn Israel [place] [facility] 10/05/2020 10:38:12 02/16/18 85 Cholecystectomy completed Lauryn Israel MA [place] - [facility] 10/05/2020 10:38:49 02/16/18 85 Appendectomy completed Lauryn Israel MA [facility] 10/05/2020 10:38:41 Imaging Results Imaging Date Name Status LastModified by Organiz ation Details LastModified Time 05/12/2022 XR, knee completed [facility] [address] [place], [address], 05/12/2022 17:14:05 05/12/2022 XR, knee completed [facility] [address] [place], [address], 05/12/2022 17:14:05 02/12/2024 US, renal completed [facility] [address] [place], [address], 02/12/2024 13:27:12 02/12/2024 US, renal completed [facility] [address] [place], [address], 03/14/2024 10:13:53 03/03/2024 US, pelvis completed [facility] [address] [place], [address], 03/03/2024 16:20:04 Procedure Notes None recorded. Medical Equipment None Reported. Allergies Allergen ID Allergen Name Allergen Category Reaction Reaction Severity Criticality Documentation Date Start Date Code Code System Note Provider Name and Address Organization Details Recorded Time [id number] metformin medicatio n diarrhea Not available Not available 01/27/2023 6809 RxNorm Not Available Not Available Not Available Medications Name Sig Start Date Stop Date Status Note LastModified by Organization Details LastModified Time metformin 500 mg tablet TAKE 2 TABLETS BY MOUTH TWICE A DAY 03/14 completed Not Available Not Available Not Available benzonatate 200 mg capsule Take 1 capsule 3 times a day by oral route as needed for 30 days. 12/13 completed Not Available Not Available Not Available simvastatin 10 mg tablet TAKE 1 TABLET BY MOUTH DAILY active Not Available Not Available No t Available Lantus U-100 Insulin 100 unit/mL subcutaneou s solution inject 20 units under the skin every evening 06/06 completed Not Available Not Available Not Available metronidazo le 500 mg tablet TAKE 1 TABLET BY MOUTH THREE TIMES A DAY FOR 10 DAYS 03/14 completed Not Available Not Available Not Available allopurinol 100 mg tablet TAKE 1 TABLET BY MOUTH DAILY active Not Available Not Available No t Available ciprofloxac in 500 mg tablet TAKE 1 TABLET BY MOUTH TWICE A DAY FOR 10 DAYS 03/14 completed Not Available Not Available Not Available peg-electro lyte solution 420 gram oral solution TAKE DIRECTED. 10/05 completed Not Available Not Available Not Available omeprazole 40 mg capsule,del ayed release TAKE 1 CAPSULE BY MOUTH DAILY 2024 active Not Available Not Available Not Avai lable dicyclomine 20 mg tablet 03/14 completed Not Available Not Available Not Available OneTouch Ultra Test strips active Not Available Not Available Not Available clotrimazol e-betametha sone 1 %-0.05 % topical cream APPLY TO AFFECTED AREA TWICE A DAY active Not Available Not Available No t Available aspirin 81 mg chewable tablet Chew 1 tablet every day by oral route. active Not Available Not Available No t Available losartan 100 mg tablet TAKE 1 TABLET BY MOUTH EVERY DAY active Not Available Not Available No t Available colestipol 1 gram tablet 06/06 completed Not Available Not Available Not Available azithromyci n 500 mg tablet Take 1 tablet every day by oral route for 3 days. 12/13 completed Not Available Not Available Not Available Vitamin D3 active Not Available Not Av ailable Not Available vitamin [id number] acid active Not Available Not Available Not Available Januvia 100 mg tablet TAKE 1 TABLET BY MOUTH EVERY DAY 06/06 completed Not Available Not Available Not Available pen needle, diabetic 32 gauge x 5/32 USE 1 PEN NEEDLE TO INJECT INSULIN ONCE DAILY active Not Available Not Available No t Available BD Insulin Syringe Ultra-Fine 0.5 mL 31 gauge x 5/16 active Not Available Not Available Not Available Soliqua 100/33 100 unit-33 mcg/mL subcutaneou s insulin pen INJECT 34 UNITS UNDER THE SKIN SLUG PRESS OPERATOR BEFORE BREAKFAST E11.9 active Not Available Not Available No t Available OneTouch Ultra2 Meter active Not Available Not Available Not Available OneTouch Delica Plus Lancet 30 gauge active Not Available Not Available Not Available Vitals Date Recorded Body height Provider Name an d Address Organization Details Last Updated DateTime 03/21/2022 160.02 cm JOE Ruiz am [facility] 03/21/2022 10:44:08 Date Recorded Body mass index (BMI) Body weight Provider Name and Address Organization Details Last Updated DateTime 03/21/2022 36.5 kg/m2 77912.03 g JOE Treviño [facility] 03/21/2022 10:45:40 Date Recorded Body temperature Provider Name a nd Address Organization Details Last Updated DateTime 03/21/2022 97.8 [degF] JOE Treviño [facility] 03/21/2022 10:48:18 Date Recorded Oxygen saturation Oxygen saturation in Arterial blood by Pulse oximetry Provider Name and Address Organization Details Last Updated DateTime 03/21/2022 96 % 96 % JOE Treviño [facility] 03/21/2022 10:48:24 Date Recorded Heart rate Provider Name an d Address Organization Details Last Updated DateTime 03/21/2022 79 /min JOE Ruiz am [facility] 03/21/2022 10:48:25 Date Recorded Body height Provider Name an d Address Organization Details Last Updated DateTime 05/12/2022 160.02 cm JOE Ruiz am [facility] 05/12/2022 10:29:10 Date Recorded Body mass index (BMI) Body weight Provider Name and Address Organization Details Last Updated DateTime 05/12/2022 37 kg/m2 20965.81 g JOE Treviño [facility] 05/12/2022 10:32:08 Date Recorded Oxygen saturation Oxygen saturation in Arterial blood by Pulse oximetry Provider Name and Address Organization Details Last Updated DateTime 05/12/2022 94 % 94 % Alondra Bond MA [facility] 05/12/2022 10:33:43 Date Recorded Heart rate Provider Name an d Address Organization Details Last Updated DateTime 05/12/2022 101 /min Alondra Serrano am, MA [facility] 05/12/2022 10:33:45 Date Recorded Body temperature Provider Name a nd Address Organization Details Last Updated DateTime 05/12/2022 98.2 [degF] Alondra Bond MA [facility] 05/12/2022 10:34:25 Date Recorded Body height Provider Name an d Address Organization Details Last Updated DateTime 01/27/2023 160.02 cm Joanne Mcdaniels MA [facility] 01/28/20 10:50:12 Date Recorded Body mass index (BMI) Body weight Provider Name and Address Organization Details Last Updated DateTime 01/27/2023 37 kg/m2 62069.81 g Joanne Mcdaniels MA [facility] 01/27/2023 10:50:18 Date Recorded Respiratory rate Provider Name a nd Address Organization Details Last Updated DateTime 01/27/2023 18 /min Joanne Mcdaniels MA [facility] 01/28/20 10:53:51 Date Recorded Oxygen saturation Oxygen saturation in Arterial blood by Pulse oximetry Provider Name and Address Organization Details Last Updated DateTime 01/27/2023 97 % 97 % Joanne Mcdaniels MA [facility] 01/27/2023 10:53:54 Date Recorded Heart rate Provider Name an d Address Organization Details Last Updated DateTime 01/27/2023 89 /min Joanne Mcdaniels MA [facility] 01/28/20 10:53:56 Date Recorded Body height Provider Name an d Address Organization Details Last Updated DateTime 04/23/2023 160.02 cm Kathi Small MA [facility] 024 11:52:38 Date Recorded Body mass index (BMI) Body weight Provider Name and Address Organization Details Last Updated DateTime 04/23/2023 36.5 kg/m2 81805.31 g Kathi Small MA [facility] 04/23/2023 11:54:09 Date Recorded Oxygen saturation Oxygen saturation in Arterial blood by Pulse oximetry Provider Name and Address Organization Details Last Updated DateTime 04/23/2023 95 % 95 % Kathi Small MA [facility] 04/23/2023 11:59:30 Date Recorded Heart rate Provider Name an d Address Organization Details Last Updated DateTime 04/23/2023 90 /min JOE [facility] 024 11:59:33 Date Recorded Respiratory rate Provider Name a nd Address Organization Details Last Updated DateTime 04/23/2023 18 /min Kathi Small MA [facility] 024 11:59:37 Date Recorded Body temperature Provider Name a nd Address Organization Details Last Updated DateTime 04/23/2023 97.6 [degF] Kathi Small MA [facility] 2023 12:00:50 Date Recorded Body height Provider Name an d Address Organization Details Last Updated DateTime 12/14/2023 160.02 cm Joanne Mcdaniels MA [facility] 12/14/19 14:56:58 Date Recorded Body mass index (BMI) Body weight Provider Name and Address Organization Details Last Updated DateTime 12/14/2023 36.1 kg/m2 21947.84 g Joanne Mcdaniels MA [facility] 12/14/2023 14:57:08 Date Recorded Heart rate Provider Name an d Address Organization Details Last Updated DateTime 12/14/2023 61 /min Joanne Mcdaniels MA [facility] 12/14/19 15:00:18 Date Recorded Oxygen saturation Oxygen saturation in Arterial blood by Pulse oximetry Provider Name and Address Organization Details Last Updated DateTime 12/14/2023 95 % 95 % Joanne Mcdaniels MA [facility] 12/14/2023 15:00:20 Date Recorded Systolic blood pressure Diastolic blood pressure Provider Name and Address Organization Details Last Updated DateTime 03/21/2022 130 mm[Hg] 66 mm[Hg] [facility] 03/21/2022 10:49:42 Date Recorded Systolic blood pressure Diastolic blood pressure Provider Name and Address Organization Details Last Updated DateTime 05/12/2022 133 mm[Hg] 70 mm[Hg] JO[facility] 05/12/2022 10:34:48 Date Recorded Systolic blood pressure Diastolic blood pressure Provider Name and Address Organization Details Last Updated DateTime 01/27/2023 135 mm[Hg] 70 mm[Hg] Joanne Mcdaniels MA [facility] 01/27/2023 10:54:00 Date Recorded Systolic blood pressure Diastolic blood pressure Provider Name and Address Organization Details Last Updated DateTime 04/23/2023 118 mm[Hg] 72 mm[Hg] Kathi Small MA [facility] 04/23/2023 12:00:21 Date Recorded Systolic blood pressure Diastolic blood pressure Provider Name and Address Organization Details Last Updated DateTime 12/14/2023 140 mm[Hg] 80 mm[Hg] Joanne Mcdaniels MA [facility] 12/14/2023 15:01:37 Social History Question Answer Notes LastModified by Organizat ion Details LastModified Time Tobacco Smoking Status Former Smoker Quit 1971 Lauryn Israel MA [facility] 10/05/2020 10:37:15 What Is Your Level Of Alcohol Consumption? Occasional Information not available 10/05/2020 Are You Blind Or Do You Have Difficulty Seeing? Yes Information not available 05/12/2022 What Is Your Level Of Caffeine Consumption? Moderate Information not available 10/05/2020 In The 14 Days Before Symptom Onset, Have You Had Close Contact With A Laboratory-confir med COVID-19 While That Case Was Ill? No Information not available 10/05/2020 In The 14 Days Before Symptom Onset, Have You Had Close Contact With A Person Who Is Under Investigation For COVID-19 While That Person Was Ill? No Information not available 10/05/2020 Have You Been To An Area Known To Be High Risk For COVID-19? No Information not available 10/05/2020 Are You Currently Employed? No Information not available 10/05/2020 Are You Deaf Or Do You Have Serious Difficulty Hearing? No Information not available 05/12/2022 What Type Of Diet Are You Following? REGULAR Information not available 10/05/2020 What Was The Date Of Your Most Recent Tobacco Screening? 12/14/2023 [email or web address] Information not available 12/14/2023 What Is Your Relationship Status? Information not available 10/05/2020 Do You Use Your Seat Belt Or Car Seat Routinely? Yes Information not available 10/05/2020 Do You Have Smoke And Carbon Monoxide Detectors In Your Home? Yes Information not available 10/05/2020 Are You Passively Exposed To Smoke? No Information no t available 10/05/2020 Do You Feel Stressed (tense, Restless, Nervous, Or Anxious, Or Unable To Sleep At Night)? [id number] Information not available 10/05/2020 Do You Use Any Illicit Or Recreational Drugs? No Information not available 10/05/2020 Has Tobacco Cessation Counseling Been Provided? No Information not available 10/05/2020 Do You Or Have You Ever Used Any Other Forms Of Tobacco Or Nicotine? No Information not available 10/05/2020 Sex: Unknown Functional Status Question Answer Note LastModified by Organization D etails LastModified Time Are you able to care for yourself? Yes Information n ot available 10/05/2020 What is your exercise level? None Information not available 05/12/2022 Mental Status None recorded. Family History Nothing Reported. Medical History Condition Response Coronary Artery Disease N Other N High Blood Pressure Y Atrial Fibrillation N Thyroid Problems N Kidney or Bladder Problems N GI Problems N Depression N COPD N Blood Clots N Skin Problems N Eating Disorder N Anemia N Heart Attack (AK) N Diabetes N Anxiety Disorder N Muscle, Joint, or Bone Problems N Seizures/Epilepsy N Acid Reflux (GERD) N Cancer Y Stroke N Asthma N Allergies N ADHD N Substance Abuse N High Cholesterol Y Hepatitis N Liver Disease N Schizophrenia N Headaches N Osteoporosis N Heart Failure N Immunizations Vaccine Type Date Status Note Provider Nam e and Address Organization Details Recorded Time TST-PPD intradermal 9 completed Lauryn [place], [place] [facility] 01/27/2023 09:22:16 COVID-19, mRNA, LNP-S, PF, 30 mcg/0.3 mL dose 1 completed Joanne Mcdan[place] [facility] 12/14/2023 15:25:07 COVID-19, mRNA, LNP-S, PF, 30 mcg/0.3 mL dose 1 completed [place]E [place] [facility] 12/14/2023 15:25:07 COVID-19, mRNA, LNP-S, PF, 30 mcg/0.3 mL dose 1 [place] [facility] 12/14/2023 15:25:07 Influenza, split virus, quadrivalent, preservative 1 [place] [facility] 12/14/2023 15:25:07 Pneumococcal conjugate PCV 13 1 [place] [facility] 01/27/2023 09:22:16 Tdap 9 [place] [facility] 01/27/2023 09:22:16 Influenza, adjuvanted, quadrivalent, PF 3 [place]E [place] [facility] 12/14/2023 15:25:07 COVID-19, mRNA, LNP-S, PF, manny-sucrose, 3 mcg/0.3 mL 3 [place] [facility] 12/14/2023 15:25:07 pneumococcal polysaccharide PPV23 7 [place]E [place] [facility] 01/27/2023 09:22:16 Pneumococcal conjugate PCV 13 8 [place] [facility] 01/27/2023 09:22:16 Influenza, high-dose, trivalent, PF 6 [place] [facility] 01/27/2023 09:22:16 Influenza, high-dose, trivalent, PF 4 [place] [facility] 01/27/2023 09:22:16 Influenza, high-dose, trivalent, PF 5 [place] [facility] 01/27/2023 09:22:16 Influenza, split virus, trivalent, preservative 8 [place] [facility] 01/27/2023 09:22:16 Influenza, split virus, quadrivalent, preservative 9 completed [place]E [place] [facility] 12/14/2023 14:54:49 Influenza, split virus, quadrivalent, preservative 0 [place] [facility] 12/14/2023 14:54:49 pneumococcal polysaccharide PPV23 3 [place] [facility] 12/14/2023 15:25:07 Tdap 3 [place] [facility] 12/14/2023 15:25:07 zoster live 3 [place] [facility] 12/14/2023 15:25:07 Influenza, split virus, trivalent, preservative 2 [place] [facility] 12/14/2023 14:54:49 Influenza, split virus, trivalent, preservative 2 completed [place] [facility] 12/14/2023 14:54:49 COVID-19, mRNA, LNP-S, PF, 30 mcg/0.3 mL dose, manny-sucrose 2 completed JOE [place] [facility] 06/06/2021 12:53:40 Past Encounters Encounter ID Performer Location Encounter Start Date Encounter Closed Date Diagnosis/Indication Diagnosis SNOMED-CT Code Diagnosis ICD10 Code Diagnosis Note [id number] Lauryn Israel MA [place] [address] [place] [address] 10/05/2020 09:49:20 10/05/2020 11:56:07 Upper gastrointestinal bleeding 30163524 K92.89 Chronic di arrhea of unknown origin 44567354 K52.9 Type 2 ирина betes mellitus without complication 078293651 E11.9 [id number] [facility] [address] [place] [address] 03/14/2021 17:32:33 03/14/2021 19:15:15 Type 2 diabetes mellitus without complication 462177330 E11.9 Uncontroll ed type 2 diabetes mellitus 957592900 E11.65 Obstructiv e sleep apnea syndrome 01522227 G47.33 [id number] Nadine Weston PA-C [facility] [address] [place] [address] 06/06/2021 10:28:35 06/06/2021 11:49:18 Adult health examination 833240883 Z00.00 Type 2 ирина betes mellitus without complication 803885550 E11.9 Anemia 984662519 D50.8 [id number] Lauryn Israel MA [facility] [address] [place] [address] 06/06/2021 10:35:22 06/06/2021 13:01:13 Administration of SARS-CoV-2 mRNA vaccine 7130099201 Z23 [id number] Nadine Weston PA-C [facility] [address] [place] [address] 01/30/2022 15:14:31 01/30/2022 16:06:40 Overweight 488616675 E66.3 Essential hypertension 16532213 I10 Mixed hyperlipidemia 267 148215 E78.2 Type 2 ирина betes mellitus without complication 721228229 E11.9 Anemia 704601414 D50.8 [id number] Nadine Weston PA-C [facility] [address] [place] [address] 03/21/2022 10:40:39 03/21/2022 11:24:24 Acute bronchitis with bronchospasm 77203914 J20.8 Overweight 621235400 E66 .3 [id number] Nadine Weston PA-C [facility] [address] [place] [address] 05/12/2022 10:24:39 05/13/2022 09:22:45 Pain of bilateral knee joints 5944341799 50457 M25.561 M25.562 Overweight 048250321 E66 .3 Anemia 192959420 D64.89 [id number] Nadine Weston PA-C [facility] [address] [place] [address] 01/27/2023 10:45:44 01/29/2023 15:22:38 Acute bronchitis with bronchospasm 10609529 J20.8 Overweight 304895117 E66 .3 [id number] Nadine Weston PA-C [facility] [address] [place] [address] 04/23/2023 11:49:34 04/27/2023 16:19:04 Bilateral conjunctivitis 1855858348 2432959 H10.013 Type 2 ирина betes mellitus without complication 241075180 E11.9 [id number] Nadine Weston PA-C [facility] [address] [place] [address] 12/14/2023 14:24:52 12/17/2023 09:44:01 Hyperkalemia 29699724 E87.5 Chronic ki dney disease stage 3 736370486 N18.31 Overweight 079162837 E66 .3 Health Concerns Section Related Observation LastModified by Organization Detai ls LastModified Time None Recorded Concern Status LastModified by Organization Details LastModified Time None Recorded Advance Directives Directive None Recorded Payers Encounter Date Sequence Insurance Name Policy Number Policy Hendrickson Covered Member ID Hendrickson Member ID Guarantor Name 03/21/2022 1 [facility] (MEDICARE REPLACEMENT/A DVANTAGE - HMO) [id number] Ruben Callahan [id number] Ruben Callahan 05/12/2022 1 [facility] (MEDICARE REPLACEMENT/A DVANTAGE - HMO) [id number] Ruben Callahan [id number] Ruben Callahan 01/27/2023 1 [facility] (MEDICARE REPLACEMENT/A DVANTAGE - HMO) [id number] Ruben Callahan [id number] Ruben Callahan 04/23/2023 1 [facility] (MEDICARE REPLACEMENT/A DVANTAGE - HMO) [id number] Ruben Callahan [id number] Ruben Callahan 12/14/2023 1 [facility] (MEDICARE REPLACEMENT/A DVANTAGE - HMO) [id number] Ruben Callahan [id number] Ruben Callahan Notes Date Note Type Note Provider Name and Address Organization Details Recorded Time 03/21/2022 text/html The patient is here for a sore throat that he has had for 3 weeks. He says that the says he has been taking robitussin and cough drops for his sore throat and it helps a bit. The patient states the sore throat has improved to the point where he thinks it was going away, but then it would come back. He denies any nausea, vomiting, diarrhea, fever, chills, or constipation. The patient says that he has had a rhinorrhea and chest congestion. The patient says his cough has been productive and he has been coughing up camarena gel-like substance. Nadine Weston PA-C Attn: [employer] [place], [place], [address] [place] [address], [facility] 03/21/2022 11:18:10 05/12/2022 text/html annual check up...bilateral knee pain (R>L)...reports they give out on him ... Nadine Weston PA-C Attn: [employer] [place], [place], [address] [place] [address], [facility] 05/12/2022 11:36:30 01/27/2023 text/html has had a cougf for 3-4 months...cant shake it... Nadine Weston PA-C Attn: [employer] [place], [place], [address] [place] [address], [facility] 01/27/2023 11:08:42 04/23/2023 text/html went to [employer] for dinner..son reports that the whites of his eyes were dark...after getting home the colored had lightened but still not normal... Nadine Weston PA-C Attn: [employer] [place], [place], [address] [place] [address], [facility] 04/23/2023 12:24:46 12/14/2023 text/html potassium has been going up...says kidney function is getting worse...creatine going up...has appt with dr hollingsworth in january...needs labs Nadine Weston PA-C Attn: [employer] [place], [place], [address] [place] [address], [facility] 12/14/2023 15:32:59
--- OUTSIDE RECORDS SUMMARY | 2024-03-17 08:45 | XMS_ITS | Encounter Summary ---
Author Organization [facility] Address [address] [place] [address]. 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
--- OUTSIDE RECORDS SUMMARY | 2024-03-17 08:45 | XMS_ITS | Clinical Summary ---
Author Organization [facility] Address [address] [place] [address]. [place], [place] [address] [place] [address] Care Team Providers Care Automatic Toe Laster Name Role Phone Blake Nixon MD Primary Care Provider Allergies No known active allergies Medications allopurinol 100 MG tablet Take 100 mg by mouth daily. 9 Active allopurinol 300 MG tablet Take 300 mg by mouth daily. Active omeprazole 40 MG capsule Take 1 capsule by mouth daily. 9 Active losartan-hydrochl orothiazide 100-25 MG tablet Take 1 tablet by mouth daily. 1 9 Active simvastatin 10 MG tablet Take 10 mg by mouth daily. Active Cholecalciferol (D3 VITAMIN OR) Take 2,000 Units by mouth daily. Active Cobalamin Combinations (B-12) 100-5000 MCG SL Tab Take 1 capsule by mouth daily. Active aspirin 81 MG tablet Take 81 mg by mouth daily. Active metFORMIN 500 MG tablet Take 1 tablet by mouth 2 (two) times daily. 9 Active acetaminophen-cod eine 300-30 MG tabletIndications :Acute Pain < 3 Day Supply Take 1 tablet by mouth every 4 (four) hours as needed for Pain. 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 [employer] Gender Identity Not on file Sexual Orientation Not on file Last Filed Vital Signs Vital Sign Reading Time Taken Comments Blood Pressure 143/64 03/06/2020 3:56 AM [employer] Pulse 65 03/06/2020 3:56 AM [employer] Temperature 36.3 ??C (97.3 ??F) 03/06/2020 3:56 AM CS T Respiratory Rate 18 03/06/2020 3:56 AM [employer] Oxygen Saturation 97% 03/06/2020 3:56 AM [employer]PER[employer] Inhaled Oxygen Concentration - - Weight 98.1 kg (216 lb 4.3 oz) 03/04/2020 9:00 P M [employer] Height 165.1 cm (5' 5 ) 03/04/2020 9:11 AM [employer]PERATIONS [employer]ER [employer] Body Mass Index 35.99 03/04/2020 9:11 AM [employer]ATIONS [employer] Plan of Treatment Health Maintenance Due Date Last Done Comments DTaP, Tdap and Td Vaccines ( 1 - Tdap) 1959 Annual Medicare Wellness Visit 2006 Pneumococcal Vaccine: 65+ Ye ars (1 of 1 - PCV) 2006 Zoster Vaccines (2 of 3) 12/03/2012 10/08/2012 RSV Immunization or 60+ Years (1 - 1-dose 75+ series) 2016 COVID-19 Vaccine ( - 2023-2 5 season) 2023 Influenza Adult (#1) 2023 Meningococcal B Vaccine Aged Out No l onger eligible based on patient's age to complete this topic Meningococcal Vaccine Aged Out No claude jacobo eligible based on patient's age to complete this topic RSV Immunizations Under 20 Months Aged Out No longer eligible based on patient's age to complete this topic Additional Health Concerns Infection Onset Date Last Indicated MRSA 01/09/2017 01/09/2017 [place] [address] Advance Directives * Full Code (Latest Code Status on File) Date Activated Date Inactivated Comments 03/04/2020 9:06 AM 03/06/2020 2:54 PM Care Teams Automatic Toe Laster Relationship Specialty Start Date End Date Blake Nixon MD [address] [place] [id number] PCP - General FAMILY PRACTICE 07/15/18
--- OUTSIDE RECORDS SUMMARY | 2024-03-17 08:45 | XMS_ITS | Referral Summary ---
Author Organization [facility] Address [address] [place] [address] Care Team Providers Care Silvering Department Supervisor Name Role Phone Demetrio Weston Primary Care Provider [phone] Encounters Date Type Department Care Team Description 01/22/2024 10:38 AM FOILING MACHINE ADJUSTER Anesthesia Event [address] [address] Melchor Norwood MD McDowell, Juri Osmell, MD 01/22/2024 10:00 AM FOILING MACHINE ADJUSTER - 01/22/2024 10:30 AM FOILING MACHINE ADJUSTER Surgery [address] [address] Shaun Tenorio MD COLON BIOPSY 01/22/2024 8:56 AM FOILING MACHINE ADJUSTER - 01/22/2024 12:02 PM FOILING MACHINE ADJUSTER Hospital Encounter [address] [address] Shaun Tenorio MD Personal history of colonic polyps; Encounter for screening colonoscopy; History of colonic polyps Discharge Disposition: Discharge to home or self care from Last 3 Months Allergies Active Allergy Reactions Criticality Noted Date [...] daily 1 Active cyanocobalamin /folic acid (vitamin L58-lplag acid) 1,000-400 mcg lozenge Take 1 capsule by mouth daily Active OneTouch Ultra Test strip 2 Active OneTouch Ultra2 Meter misc 2 Active OneTouch Delica Plus Lancet 30 gauge misc 2 Active pen needle, diabetic 32 gauge x 32 needle Use to inject insulin daily. E11.65 [...] ranges Assessment & Plan (01/30/2023 9:35 AM FOILING MACHINE ADJUSTER): Continuous glucose monitor (cgm) applied from 01/17/2023 [...] prescribed. Assessment & Plan (01/31/2021 12:17 AM FOILING MACHINE ADJUSTER): Losartan resumed with hold parameters Dyslipidemia associated [...] prescribed. Assessment & Plan (01/30/2023 9:31 AM FOILING MACHINE ADJUSTER): This is a chronic condition which is [...] prescribed. Assessment & Plan (04/02/2021 6:12 PM FOILING MACHINE ADJUSTER): This is a chronic condition Goal is less than 70. Continue simvastatin. Encouraged to eat healthy, include fresh fruits and vegetables daily and avoid eating fried foods more than once per week. Encouraged to take medications as prescribed. Assessment & Plan (01/31/2021 12:17 AM FOILING MACHINE ADJUSTER): Continue statin Normocytic anemia 01/31/2021 Assessment & Plan (01/31/2021 12:18 AM FOILING MACHINE ADJUSTER): Hemoglobin decreased from 12.4-10.6. Will continue to monitor. Patient okay with transfusion if needed. Lactic acidosis 01/31/2021 Assessment & Plan (01/31/2021 12:18 AM FOILING MACHINE ADJUSTER): Likely secondary to GI bleed. Continue IV fluids. Anorectal hemorrhage 01/30/2021 Assessment & Plan (01/31/2021 12:17 AM FOILING MACHINE ADJUSTER): Patient seen by GI. Continue Cipro and [...] simvastatin Assessment & Plan (01/30/2023 9:35 AM FOILING MACHINE ADJUSTER): This is a chronic condition which is [...] No history of macrovascular disease - [place]. Freestyle Nae 2 continuous glucose monitor applied from 04/18/2022 to 05/01/2022 This device was placed for monitor and treatment of blood sugar. Interpretation of data- In target 63% of the time with soliqua 22-24 units daily without hypoglycemia. Assessment & Plan (12/30/2021 9:27 AM FOILING MACHINE ADJUSTER): This is a chronic condition which is [...] No history of macrovascular disease - [place]. Freestyle Nae 2 continuous glucose monitor applied [...] No history of macrovascular disease - [place] Freestyle Nae 2 continuous glucose monitor applied [...] No history of macrovascular disease - [place]. Freestyle Nae 2 continuous glucose monitor applied [...] hypoglycemia. Assessment & Plan (04/02/2021 6:11 PM FOILING MACHINE ADJUSTER): This is a chronic condition which is [...] No history of macrovascular disease - [place]. Assessment & Plan (01/31/2021 12:17 AM FOILING MACHINE ADJUSTER): Sugars elevated on presentation. Currently improved. Continue [...] cancer 12/30/2016 Overview (01/30/2021): Clinical stage IIA ([id number] Benjamín 3 + 4 histology and PSA [...] trees Assessment & Plan (01/30/2023 9:33 AM FOILING MACHINE ADJUSTER): This is a chronic condition which continues [...] active He is working still as a [employer] Immunizations Name Administration Dates Next Due Influenza, Quadrivalent, Split, Intramuscular ,11/25/2018 Influenza, Trivalent, IM (MDV) 10/28/2011,2011 Pneumococcal Polysaccharide PPV23 05/05/2012 Tdap 05/05/2012 ZOSTER LIVE 10/08/2012 Social History Tobacco Use Types Packs/Day Years Used Date Smoking Tobacco: Former Cigarettes S tarted: 1972 Smokeless Tobacco: Former Chew Tobacco Cessation:Counseling Given: [...] on file Legal Sex Male 1:50 AM FOILING MACHINE ADJUSTER Gender Identity Not on file Sexual Orientation Not on file Last Filed Vital Signs Vital Sign Reading Time Taken Comments Blood Pressure 120/70 01/22/2024 11:43 AM FOILING MACHINE ADJUSTER Pulse 59 01/22/2024 11:43 AM FOILING MACHINE ADJUSTER Temperature 37.1 ??C (98.8 ??F) 01/22/2024 11:[address] Respiratory Rate 16 01/22/2024 11:43 AM FOILING MACHINE ADJUSTER Oxygen Saturation 99% 01/22/2024 11:43 AM FOILING MACHINE ADJUSTER Inhaled Oxygen Concentration - - Weight 88.5 kg (195 lb) 01/22/2024 9:10 AM FOILING MACHINE ADJUSTER Height 157.5 cm (5' 2 ) 01/22/2024 9:10 AM FOILING MACHINE ADJUSTER Body Mass Index 35.67 01/22/2024 9:10 AM FOILING MACHINE ADJUSTER Plan of Treatment Not on file Procedures Procedure Name Priority Date/Time Associated Diagnosis Comments SURGICAL PATHOLOGY STAT 01/22/2024 1: 46 PM FOILING MACHINE ADJUSTER History of colonic polyps Encounter for screening colonoscopy COLON BIOPSY 01/22/2024 10:29 AM FOILING MACHINE ADJUSTER Personal history of colonic polyps Encounter for screening colonoscopy POCT GLUCOSE DEVICE Routine 01/22/2024 9 :25 AM FOILING MACHINE ADJUSTER COLONOSCOPY 01/22/2024 8:57 AM FOILING MACHINE ADJUSTER EGFR Routine 12/07/2023 11:26 AM CDT Type [...] Results * Surgical pathology (01/22/2024 1:46 PM FOILING MACHINE ADJUSTER) Tissue (Polyp(s), colon/colorectal, esophageal, gastric) 01/22/2024 11:10 AM FOILING MACHINE ADJUSTER Narrative PATHOLOGY [facility] - 01/26/2024 2:06 PM FOILING MACHINE ADJUSTER EPIC results best viewed via link to PDF [facility] Department of Pathology [address] [place] [address] Note to Patients: This report may contain [...] Report Patient Name: ??CHRISSIE CALLAHAN Address: ??[address], ??[place], [place] [address] Gender: ??M : ??1940 (Age: 83) Service: ??Gastro Location: ??[facility] Hospital #: ??[id number] Patient Type: ??[facility] Accession # ?[id number] Taken: ??01/22/2024 Received: ??01/22/2024 Accessioned: ??01/22/2024 Reported: [...] determined by the Surgical Pathology Department at [facility] as part of an ongoing water quality specialist program and in compliance with federally mandated [...] characteristics determined by the Surgical Pathology Department [facility]. ??It has not been cleared or approved by the U. S. Food and Drug Administration. Note for decalcified specimens: This assay has not been validated on decalcified tissues. Results should be interpreted with caution given the possibility of false negativity on decalcified specimens Shaun Tenorio MD LAB PATHOLOGY ORDERABLES F inal Result PATHOLOGY [facility] ([facility] [address] [place] [address] * POCT glucose (01/22/2024 9:25 AM FOILING MACHINE ADJUSTER) Glucose, POC 149 70 - 199 mg/dL Blood 01/22/2024 9:25 AM FOILING MACHINE ADJUSTER 01/22/2024 9:25 AM FOILING MACHINE ADJUSTER Shaun Tenorio MD LAB POCT ORDERABLES - LEONA CE Final Result Performing Organization Address [facility]/ZIP Co de Phone Number [facility] 1 [facility] Department [place] [address] * Colonoscopy (01/22/2024 8:57 AM FOILING MACHINE ADJUSTER) Anatomical Region Laterality Modality Other Narrative Procedure Note Shaun Tenorio MD - 01/22/2024 8:57 AM CST [facility] Patient Name: Chrissie Callahan Procedure Date: 01/22/2024 8:57 AM Date of : 1940 Admit Type: Outpatient Age: 83 Gender: Male Attending MD: Shaun Tenorio M.D. Room: [facility] ENDOSCOPY ROOM 1 Note Status: [...] passed under direct vision. 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 All rights reserved. The codes documented in this report are preliminary and upon assembler reviewmay be revised to meet current compliance requirements. Recognized by the [employer] for promoting quality [...] 6 AM CDT 12/07/2023 9:04 PM CDT Mary Jo Atkinson VOCATIONAL EDUCATION PROFESSIONAL LAB BLOOD ORDERABLES Final Resu lt Performing Organization Address [facility] de Phone Number [facility] [address] [address] [facility] [place] [address] * (ABNORMAL) Albumin Creatinine Ratio, Urine (12/07/2023 11:26 AM CDT) Albumin Ur 80.8 mg/L Comment: Interpretive Data No reference range established. Current interpretive data was last revised 2018. Creatinine Ur 115.2 mg/dL [facility] Comment: Interpretive Data No reference range established. Current interpretive data was last revised 2018. Albumin Creatinine Ratio, Ur 70(H) 1 - 29 mg/g [facility] Urine 12/07/2023 11:2 6 AM CDT 12/07/2023 7:18 PM CDT Mary Jo Atkinson VOCATIONAL EDUCATION PROFESSIONAL LAB URINE ORDERABLES Final Resu lt Performing Organization Address [facility] Phone Number [facility] [place] [address] [address] [place] [address] * (ABNORMAL) Lipid panel (12/07/2023 11:26 AM CDT) Cholesterol 157 30 - 199 mg/dL Comment: [...] revised on 2017. Triglycerides 244(H) <=149 mg/dL [facility] Comment: Interpretive Data Ages [...] 2017. LDL, calculated 81 <=129 mg/dL [facility] Comment: Interpretive Data Ages < or = [...] revised on 2023. Non-HDL Cholesterol 122 mg/dL [facility] Comment: Interpretive Data Ages < or = [...] last revised on 2017. Chol/HDL ratio 4 [facility] Blood 12/07/2023 11:2 6 AM CDT 12/07/2023 7:18 PM CDT Narrative [facility] - 12/07/2023 9:50 PM CDT These lab test should be done fasting. This means do not eat or drink for at least 12 hours prior to getting your blood drawn. Has the patient been fasting for 8 hours or more?->Yes Mary Jo Atkinson NP LAB BLOOD ORDERABLES Final Resu lt [facility] [id number] [address] [place] [address] * POCT hemoglobin A1c (12/07/2023 9:07 AM [...] Advance Directives For more information, please contact: [phone] * Full Code (Latest Code Status on File) Date Activated Date Inactivated Comments 01/22/2024 8:59 AM 01/22/2024 4:07 PM * Full Code Date Activated Date Inactivated Comments 01/22/2024 8:59 AM 01/22/2024 8:59 AM * Full Code Date Activated Date Inactivated Comments 01/30/2021 8:31 AM 02/01/2021 9:56 PM Care Teams Silvering Department Supervisor Relationship Specialty Start Date End Date Demetrio Weston PA [address] [place] [address] PCP - General Family Practice 10/05/20
[2024-03-17 08:51] LABS: Add Urine Microscopic? NO; Appearance Urine Clear (Clear); Bilirubin Urine Negative (Negative); Blood Urine Negative (Negative); Color Urine Light Yellow (Yellow); Glucose Urine UA Trace (Negative); Ketones Urine Negative (Negative); Leukocyte Esterase Ur Negative (Negative); Nitrate Urine Negative (Negative); Protein Urine Negative (Negative); Specific Grav Ur 1.025 (1.010-1.020); Urobilinogen Urine 0.2 mg/dL (0.2-1.0); pH Urine 5.5 (5.0-8.0)
[2024-03-17 08:58] LABS: Creatinine Urine 135.16 mg/dL (40-278); MALB Creatinine Ratio 58.4 mg/g (0-30)
[2024-03-17 09:26] LABS: Iron 56 ug/dL (65-175); Percent Iron Saturation 18 % (12-57)
[2024-03-18 07:06] LABS: Albumin Level 3.6 g/dL (3.4-5.0); Anion Gap 11 mmol/L (4-12); Blood Urea Nitrogen 35 mg/dL (7-18); Calcium 8.8 mg/dL (8.5-10.1); Carbon Dioxide 24 mmol/L (21-32); Chloride 102 mmol/L (98-108); Estimated Glomerular Filt Rate 27; Glucose 253 mg/dL (70-99); Osmolality Calculated 301 mOsm/kg (285-295); Phosphorus 4.7 mg/dL (2.6-4.7); Potassium 4.7 mmol/L (3.5-5.1); Sodium 137 mmol/L (136-145)
[2024-03-18 20:07] LABS: Parathyroid Intact 53 pg/mL (16-77)
== END 2024-03-17 08:27 | disposition home or self-care (01) ==
LOC: CHSLAB 08:29
PROVIDERS: PCP Physician Assistant
DX: N18.32 Chronic kidney disease, stage 3b (principal); E55.9 Vitamin D deficiency, unspecified
CPT/HCPCS: 36415; 80069; 81003; 82043; 82306; 82652; 83540; 83550; 83970; 85027

== ENCOUNTER 2024-05-05 09:23 | Outpatient (CLI) | payer MEDICARE, SELFPAY ==
[2024-05-05 09:37] LABS: Hematocrit 38.8 % (37.0-46.0); Hemoglobin 12.7 g/dL (12.4-15.3); Mean Corpuscular HGB Conc 32.7 g/dL (32-36); Mean Corpuscular Hemoglobin 28.7 pg (27.0-31.0); Mean Corpuscular Volume 87.6 fL (78.0-102.0); Mean Platelet Volume 9.5 fl (8.7-11.0); Platelet Count Result 269 K/mm3 (150-420); Red Blood Count 4.43 M/mm3 (4.70-6.10); Red Cell Distribution Width 14.2 % (11.6-14.4)
[2024-05-05 09:39] LABS: Add Urine Microscopic? YES; Appearance Urine Clear (Clear); Bilirubin Urine Negative (Negative); Blood Urine Negative (Negative); Color Urine Yellow (Yellow); Glucose Urine UA Negative (Negative); Ketones Urine Negative (Negative); Leukocyte Esterase Ur Negative (Negative); Nitrate Urine Negative (Negative); Protein Urine Trace (Negative); Specific Grav Ur 1.025 (1.010-1.020); Urobilinogen Urine 0.2 mg/dL (0.2-1.0)
[2024-05-05 09:49] LABS: RBC Urine 0-2 /hpf (0-2); WBC Urine 0-3 /hpf (0-3)
[2024-05-05 09:50] LABS: Bacteria Urine Trace /hpf
--- OUTSIDE RECORDS SUMMARY | 2024-05-05 09:52 | XMS_ITS | Referral Summary ---
Author Organization [facility] Medical Office Building B Address [address] [place] [address] Care Team Providers Care Digital Forensic Analyst Name Role Phone Demetrio Weston Primary Care Provider [phone] Encounters Date Type Department Care Team Description 04/11/2024 9:30 AM PRODUCT SUPPORT ANALYST Office Visit [facility] Medical Group Diabetes Endocrine Care at [address] [phone] Mary Jo Atkinson, PRETTY Type 2 diabetes mellitus with hyperglycemia, with long-term current use of insulin (HCC) (Primary Dx); Hypertension associated with type 2 diabetes mellitus (HCC); Dyslipidemia associated with type 2 diabetes mellitus (HCC); freestyle nae 2 continuous glucose monitoring device; Class 2 severe obesity due to excess calories with serious comorbidity and body mass index (BMI) of 37.0 to 37.9 in adult (HCC) from Last 3 Months Allergies Active Allergy Reactions Criticality Noted Date Comments Metformin Diarrhea Low 04/02/2021 Medications omeprazole (PriLOSEC) 40 mg capsule Take by mouth daily 08/31/19 21 Active simvastatin (ZOCOR) 10 mg tablet Take 1 tablet (10 mg total) by mouth daily 08/31/19 21 Active allopurinoL (ZYLOPRIM) 100 mg tablet Take 1 tablet (100 mg total) by mouth daily 08/31/19 21 Active losartan (COZAAR) 100 mg tablet Take 1 tablet (100 mg total) by mouth daily 08/31/19 21 Active cyanocobalamin /folic acid (vitamin P55-tdbkr acid) 1,000-400 mcg lozenge Take 1 capsule by mouth daily Active OneTouch Ultra Test strip 03/13/19 Active OneTouch Ultra2 Meter misc 03/13/19 Active OneTouch Delica Plus Lancet [facility] 03/13/19 Active aspirin 81 mg chewable tablet Chew 1 tablet every day by oral route. Active calcium carbonate-sumaya min D3 1,500 mg (600 mg elemental)-1,0 00 unit capsule Take 1,000 Units by mouth Active pen needle, diabetic 32 gauge x 5/32 needle Use to inject insulin daily. E11.65 patient want Relion needles. Will be brenner pay. 400 each 1 04/11/19 25 Active Soliqua 100/33 100 unit-33 mcg/mL insulin penIndications :type 2 diabetes mellitus Inject 42 Units under the skin daily E11.65 45 mL 4 04/11/19 25 Active pen needle, diabetic 32 gauge x 5/32 needle Use to inject insulin daily. E11.65 patient want Relion needles. Will be brenner pay. 400 each 1 05/04/19 24 025 Discontin ued(Reord er) Soliqua 100/33 100 unit-33 mcg/mL insulin penIndications :Type 2 diabetes mellitus with hyperglycemia, with long-term current use of insulin (HCC) INJECT 44 UNITS SUBCUTANEOUSLY EARLY IN THE MORNING BEFORE BREAKFAST 45 mL 4 01/18/20 24 025 Discontin ued(Reord er) pen needle, diabetic 32 gauge x 5/32 needle Use to inject insulin daily. E11.65 patient want Relion needles. Will be brenner pay. 400 each 1 04/11/19 25 025 Discontin ued(Thera py completed ) Active Problems Problem Noted Date Diagnosed Date Personal history of colonic polyps 05/14/2023 Encounter for screening colonoscopy 05/14/2023 freestyle nae 2 continuous glucose monitoring device 07/31/2022 Assessment & Plan (04/11/2024 9:41 AM PRODUCT SUPPORT ANALYST): Continuous glucose monitor (cgm) applied from 03/29/2024 to 04/11/2024 This device was placed for monitor and treatment of blood sugar. Interpretation of data- average glucose 154, in target range 74%, 26% hyperglycemia. 0 hypoglycemia. Assessment & Plan (12/07/2023 9:32 AM CDT): [...] ranges Assessment & Plan (01/30/2023 9:35 AM PRODUCT SUPPORT ANALYST): Continuous glucose monitor (cgm) applied from 01/17/2023 [...] prescribed. Assessment & Plan (01/31/2021 12:17 AM PRODUCT SUPPORT ANALYST): Losartan resumed with hold parameters Dyslipidemia associated [...] prescribed. Assessment & Plan (01/30/2023 9:31 AM PRODUCT SUPPORT ANALYST): This is a chronic condition which is [...] prescribed. Assessment & Plan (04/02/2021 6:12 PM PRODUCT SUPPORT ANALYST): This is a chronic condition Goal is less than 70. Continue simvastatin. Encouraged to eat healthy, include fresh fruits and vegetables daily and avoid eating fried foods more than once per week. Encouraged to take medications as prescribed. Assessment & Plan (01/31/2021 12:17 AM PRODUCT SUPPORT ANALYST): Continue statin Normocytic anemia 01/31/2021 Assessment & Plan (01/31/2021 12:18 AM PRODUCT SUPPORT ANALYST): Hemoglobin decreased from 12.4-10.6. Will continue to monitor. Patient okay with transfusion if needed. Lactic acidosis 01/31/2021 Assessment & Plan (01/31/2021 12:18 AM PRODUCT SUPPORT ANALYST): Likely secondary to GI bleed. Continue IV fluids. Anorectal hemorrhage 01/30/2021 Assessment & Plan (01/31/2021 12:17 AM PRODUCT SUPPORT ANALYST): Patient seen by GI. Continue Cipro and Flagyl. Clear liquid diet. H&H q.8. Medication side effect 12/07/2020 Irritable bowel syndrome with diarrhea 1 History of GI diverticular bleed 10/26/2020 Rectal [...] simvastatin Assessment & Plan (01/30/2023 9:35 AM PRODUCT SUPPORT ANALYST): This is a chronic condition which is [...] units daily. Monitor blood sugar continuously with Motivanostyle nae 2 sensor. Encouraged annual eye exam. [...] No history of macrovascular disease - CV[place], [place]. Freestyle Nae 2 continuous glucose monitor applied from 04/18/2022 to 05/01/2022 This device was placed for monitor and treatment of blood sugar. Interpretation of data- In target 63% of the time with soliqua 22-24 units daily without hypoglycemia. Assessment & Plan (12/30/2021 9:27 AM PRODUCT SUPPORT ANALYST): This is a chronic condition which is [...] No history of macrovascular disease - CV[place], [place]. Freestyle Nae 2 continuous glucose monitor applied [...] No history of macrovascular disease - CVA, [place]. Freestyle Nae 2 continuous glucose monitor applied [...] No history of macrovascular disease - CVA, [place]. Freestyle Nae 2 continuous glucose monitor applied [...] hypoglycemia. Assessment & Plan (04/02/2021 6:11 PM PRODUCT SUPPORT ANALYST): This is a chronic condition which is [...] No history of macrovascular disease - CVA, [place]. Assessment & Plan (01/31/2021 12:17 AM PRODUCT SUPPORT ANALYST): Sugars elevated on presentation. Currently improved. Continue [...] cancer 12/30/2016 Overview (01/30/2021): Clinical stage IIA ([id number] [place] 3 + 4 histology and PSA 10.32) adenocarcinoma of the prostate. He was started on ADT February 2016 with [...] trees Assessment & Plan (01/30/2023 9:33 AM PRODUCT SUPPORT ANALYST): This is a chronic condition which continues [...] active He is working still as a [employer] Immunizations Immunization Administration Dates Next Due Influenza, Quadrivalent, Split, [...] on file Legal Sex Male 1:50 AM PRODUCT SUPPORT ANALYST Gender Identity Not on file Sexual Orientation Not on file Last Filed Vital Signs Vital Sign Reading Time Taken Comments Blood Pressure 112/50 04/11/2024 9:31 AM PRODUCT SUPPORT ANALYST Pulse 59 01/22/2024 11:43 AM PRODUCT SUPPORT ANALYST Temperature 37.1 C (98.8 F) 01/22/2024 11:43 AM PRODUCT SUPPORT ANALYST Respiratory Rate 16 01/22/2024 11:43 AM PRODUCT SUPPORT ANALYST Oxygen Saturation 99% 01/22/2024 11:43 AM PRODUCT SUPPORT ANALYST Inhaled Oxygen Concentration - - Weight 93 kg (205 lb 1.6 oz) 04/11/2024 9:31 AM PRODUCT SUPPORT ANALYST Height 157.5 cm (5' 2 ) 04/11/2024 9:31 AM PRODUCT SUPPORT ANALYST Body Mass Index 37.51 04/11/2024 9:31 AM PRODUCT SUPPORT ANALYST Plan of Treatment Not on file Procedures Procedure Name Priority Date/Time Associated Diagnosis Comments POCT HEMOGLOBIN A1C Routine 04/11/2024 9 :39 AM PRODUCT SUPPORT ANALYST Type 2 diabetes mellitus with hyperglycemia, with long-term current use of insulin (HCC) POCT GLUCOSE Routine 04/11/2024 9:32 AM PRODUCT SUPPORT ANALYST Type 2 diabetes mellitus with hyperglycemia, with long-term current use of insulin ([facility]) EGFR Routine 12/07/2023 11:26 AM CDT Type 2 diabetes mellitus with hyperglycemia, with long-term current use of insulin ([facility]) LIPID PANEL Routine 12/07/2023 11:26 AM CDT Type 2 diabetes mellitus with hyperglycemia, with long-term current use of insulin ([facility]) ALBUMIN CREATININE RATIO, URINE Routine 12/07/2023 11:26 AM CDT Type 2 diabetes mellitus with hyperglycemia, with long-term current use of insulin ([facility]) DIABETIC EYE EXAM Routine 05/17/2021 from Last 3 Months or Most Recently Relevant to Health Maintenance Results * POCT hemoglobin A1c (04/11/2024 9:39 AM PRODUCT SUPPORT ANALYST) Hemoglobin A1C, POC 7.6 4.0 - 5.6 % Blood 04/11/2024 9:39 AM PRODUCT SUPPORT ANALYST us Mary Jo Atkinson NP POINT OF CARE TEST ORDERABLES F inal Result * POCT glucose (04/11/2024 9:32 AM PRODUCT SUPPORT ANALYST) Glucose Blood, POC 164 mg/dL Blood 04/11/2024 9:32 AM PRODUCT SUPPORT ANALYST Mary Jo Atkinson NP POINT OF CARE TEST ORDERABLES F inal Result * (ABNORMAL) eGFR (12/07/2023 11:26 AM CDT) eGFR 33(L) >=60 mL/min/1. 73 m2 Comment: Interpretive Data Reference Interval Normal >/= 90 mL/min/1.73m2 Mildly decreased* 60 - 89 mL/min/1.73m2 Mildly to moderately decreased 45 - 59 mL/min/1.73m2 Moderately to severely decreased 30 - 44 mL/min/1.73m2 Severely decreased 15 - 29 mL/min/1.73m2 Kidney Failure < 15 mL/min/1.73m2 *Relative to young adult level Estimated glomerular [...] LAB BLOOD ORDERABLES Final Resu lt [facility] [address] [address] Department [place] [address] * (ABNORMAL) Albumin Creatinine Ratio, [...] NP LAB URINE ORDERABLES Final Resu lt [facility] [address] [address] Department [place] [address] * (ABNORMAL) Lipid panel (12/07/2023 11:26 AM CDT) Cholesterol 157 30 - 199 mg/dL Comment: Interpretive Data Ages < or = 19 years Acceptable: <170 mg/dL Borderline high: 170-199 mg/dL High: >or= 200 mg/dL Ages > or = 20 years Desirable: <200 mg/dL Borderline high: 200-239 mg/dL High: >or= 240 mg/dL Literature References: 1. Expert Panel on Integrated Guidelines for Cardiovascular Health and Risk Reduction in Children and Adolescents. Pediatrics 2011;128:S213 2. NCEP Expert Panel. Circulation 2004;110:227 Current Interpretive Data was last revised on 2017. Triglycerides 244(H) <=149 mg/dL [facility] Comment: Interpretive Data Ages < or = 9 years Acceptable: <75 mg/dL Borderline high: 75-99 mg/dL High: >or= 100 mg/dL Ages 10 to 20 years Acceptable: <90 mg/dL Borderline high: 90-129 mg/dL High: >or= 130 mg/dL Ages > or = 20 years Desirable: <150 mg/dL Borderline high: 150-199 mg/dL High: 200-499 mg/dL Very high: >or= 499 mg/dL Literature References: 1. Expert Panel on Integrated Guidelines for Cardiovascular Health and Risk Reduction in Children and Adolescents. Pediatrics 2011;128:S213 2. NCEP Expert Panel. Circulation 2004;110:227 Current Interpretive Data was last revised on 2017. HDL 35(L) >=40 mg/dL [facility] Comment: Interpretive Data Ages < or = 19 years Acceptable: >45 mg/dL Borderline low: 40-45 mg/dL Low: <40 mg/dL Ages > or = 20 years Desirable: >or= 60 mg/dL Low: <40 mg/dL Literature References: 1. Expert Panel on Integrated Guidelines for Cardiovascular Health and Risk Reduction in Children and Adolescents. Pediatrics 2011;128:S213 2. NCEP Expert Panel. Circulation 2004;110:227 Current Interpretive Data was last revised on 2017. LDL, calculated 81 <=129 mg/dL [facility] Comment: Interpretive Data Ages < or = 19 years Acceptable: <110 mg/dL Borderline high: 110-129 mg/dL High: >or= 130 mg/dL Ages > or = 20 years Optimal: <100 mg/dL Near optimal: 100-129 mg/dL Borderline high: 130-159 mg/dL High: >160 mg/dL Calculated using the Sanford LDL-C estimating equation. This equation was implemented on 2023. Prior to this date LDL-C was estimated using the Friedewald equation. Literature References: 1. Expert Panel on Integrated Guidelines for Cardiovascular Health and Risk Reduction in Children and Adolescents. Pediatrics 2011;128:S213 2. NCEP Expert Panel. Circulation 2004;110:227 3. [place] al. ÓSCAR Cardiol. 2019June 16;5(5):540-548. doi: [email or web address] Current Interpretive Data was last revised on 2023. Non-HDL Cholesterol 122 mg/dL [facility] Comment: Interpretive Data Ages < or = 19 years Acceptable: <120 mg/dL Borderline high: 120-144 mg/dL High: >145 mg/dL Ages > or = 20 years When triglycerides are >200 mg/dL, Non-HDL cholesterol is a secondary target of therapy with treatment goals that are 30 mg/dL greater than the LDL cholesterol target. Literature References: 1. Expert Panel on Integrated Guidelines for Cardiovascular Health and Risk Reduction in Children and Adolescents. Pediatrics 2011;128:S213 2. NCEP Expert Panel. Circulation 2004;110:227 Current Interpretive Data was last revised on 2017. Chol/HDL ratio 4 [facility] Blood 12/07/2023 11:2 6 AM CDT 12/07/2023 7:18 PM CDT Narrative [facility] - 12/07/2023 9:50 PM CDT These lab test should be done fasting. This means do not eat or drink for at least 12 hours prior to getting your blood drawn. Has the patient been fasting for 8 hours or more?->Yes Mary Jo Atkinson NP LAB BLOOD ORDERABLES Final Resu lt [facility] [id number] [address] Department [place] [address] * Diabetic Eye Exam (05/17/2021) Historical Provider HEALTH MAINTENANCE Final Result from Last 3 Months or Most Recently Relevant to Health Maintenance Insurance MEDICARE SOLUTIONS Advance Directives For more information, please contact: [phone] * Full Code (Latest Code Status on File) Date Activated Date Inactivated Comments 01/22/2024 8:59 AM 01/22/2024 4:07 PM * Full Code Date Activated Date Inactivated Comments 01/22/2024 8:59 AM 01/22/2024 8:59 AM * Full Code Date Activated Date Inactivated Comments 01/30/2021 8:31 AM 02/01/2021 9:56 PM Care Teams Digital Forensic Analyst Relationship Specialty Start Date End Date Demetrio Weston PA [address] [place] [address] PCP - General Family Practice 10/05/20
--- OUTSIDE RECORDS SUMMARY | 2024-05-05 09:52 | XMS_ITS | Encounter Summary ---
Author Organization [facility] Address [facility] [place] [address] Care Team Providers Care Mobile Application Tester Name Role Phone Blake Nixon MD Primary Care Provider Encounter Details Date Type Department Care Team (Late st Contact Info) Description 05/02/2017 Abstract [facility] CONVERSION [address] [place] [address] , Generic ConversionMD Social History Tobacco Use Types Packs/Day Years Used Date Smoking Tobacco: Never Assessed Sex and Gender Information Value Date Recorded Sex Assigned at Not on file Legal Sex Male 9:42 PM TEXTILE ENGRAVER Gender Identity Not on file Sexual Orientation Not on file documented as of this encounter Plan of Treatment Not on file documented as of this encounter Visit Diagnoses Not on filedocumented in this encounter Additional Health Concerns Infection Onset Date Last Indicated Resolved Time 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
--- OUTSIDE RECORDS SUMMARY | 2024-05-05 09:52 | XMS_ITS | Clinical Summary ---
Author Organization [facility] Address [address] [place] [address] Care Team Providers Care Marking Machine Operator Name Role Phone Demetrio Weston Primary Care Provider [phone] Allergies Active Allergy Reactions Criticality Noted Date [...] 08/31/19 21 Active cyanocobalamin /folic acid (vitamin C78-tqldn acid) 1,000-400 mcg lozenge Take 1 capsule by mouth daily Active OneTouch Ultra Test strip 03/13/19 22 Active OneTouch Ultra2 Meter misc 03/13/19 22 Active OneTouch Delica Plus Lancet [facility] 03/13/19 22 Active aspirin 81 mg chewable tablet Chew [...] 07/31/2022 Assessment & Plan (04/11/2024 9:41 AM TAPE SEWER): Continuous glucose monitor (cgm) applied from 03/29/2024 [...] ranges Assessment & Plan (01/30/2023 9:35 AM TAPE SEWER): Continuous glucose monitor (cgm) applied from 01/17/2023 [...] prescribed. Assessment & Plan (01/31/2021 12:17 AM TAPE SEWER): Losartan resumed with hold parameters Dyslipidemia associated [...] prescribed. Assessment & Plan (01/30/2023 9:31 AM TAPE SEWER): This is a chronic condition which is [...] prescribed. Assessment & Plan (04/02/2021 6:12 PM TAPE SEWER): This is a chronic condition Goal is less than 70. Continue simvastatin. Encouraged to eat healthy, include fresh fruits and vegetables daily and avoid eating fried foods more than once per week. Encouraged to take medications as prescribed. Assessment & Plan (01/31/2021 12:17 AM TAPE SEWER): Continue statin Normocytic anemia 01/31/2021 Assessment & Plan (01/31/2021 12:18 AM TAPE SEWER): Hemoglobin decreased from 12.4-10.6. Will continue to monitor. Patient okay with transfusion if needed. Lactic acidosis 01/31/2021 Assessment & Plan (01/31/2021 12:18 AM TAPE SEWER): Likely secondary to GI bleed. Continue IV fluids. Anorectal hemorrhage 01/30/2021 Assessment & Plan (01/31/2021 12:17 AM TAPE SEWER): Patient seen by GI. Continue Cipro and [...] simvastatin Assessment & Plan (01/30/2023 9:35 AM TAPE SEWER): This is a chronic condition which is [...] No history of macrovascular disease - [place]A, [place]. Freestyle Nae 2 continuous glucose monitor applied from 04/18/2022 to 05/01/2022 This device was placed for monitor and treatment of blood sugar. Interpretation of data- In target 63% of the time with soliqua 22-24 units daily without hypoglycemia. Assessment & Plan (12/30/2021 9:27 AM TAPE SEWER): This is a chronic condition which is [...] No history of macrovascular disease - [place], [place]. Freestyle Nae 2 continuous glucose monitor applied [...] No history of macrovascular disease - [place], [place]. Freestyle Nae 2 continuous glucose monitor applied [...] No history of macrovascular disease - [place], [place]. Freestyle Nae 2 continuous glucose monitor applied [...] hypoglycemia. Assessment & Plan (04/02/2021 6:11 PM TAPE SEWER): This is a chronic condition which is [...] No history of macrovascular disease - CV[place], [place]. Assessment & Plan (01/31/2021 12:17 AM TAPE SEWER): Sugars elevated on presentation. Currently improved. Continue [...] cancer 12/30/2016 Overview (01/30/2021): Clinical stage IIA ([id number] [place] 3 + 4 histology and PSA 10.32) [...] trees Assessment & Plan (01/30/2023 9:33 AM TAPE SEWER): This is a chronic condition which continues [...] active He is working still as a [employer] Encounters Date Type Department Care Team Description 04/11/2024 9:30 AM TAPE SEWER Office Visit [facility] Medical Group Diabetes Endocrine Care at [address] [address] Mary Jo Atkinson, PRETTY Type 2 diabetes mellitus with hyperglycemia, with long-term current use of insulin (HCC) (Primary Dx); Hypertension associated with type 2 diabetes mellitus (HCC); Dyslipidemia associated with type 2 diabetes mellitus (HCC); MAPPING nae 2 continuous glucose monitoring device; Class 2 severe obesity due to excess calories with serious comorbidity and body mass index (BMI) of 37.0 to 37.9 in adult (HCC) from Last 3 Months Immunizations Immunization Administration Dates Next Due Influenza, Quadrivalent, Split, Intramuscular ,11/25/2018 Influenza, Trivalent, IM (MDV) 10/28/2011,2011 Pneumococcal Polysaccharide PPV23 05/05/2012 Tdap 05/05/2012 ZOSTER LIVE 10/08/2012 Surgical History Surgery Date Site/Laterality Comments COLONOSCOPY 02/17/2020 - 02/15/2021 COLONOSCOPY 01/22/2024 Medical History Medical History Date Comments Rectal bleeding Diabetes (HCC) Hypertension Cancer (HCC) Social History Tobacco Use Types Packs/Day Years Used Date Smoking Tobacco: Former Cigarettes S tarted: 1972 Smokeless Tobacco: Former Chew Tobacco Cessation:Counseling Given: Not Answered AUDIT-C Answer Date Recorded Q1: How often do you have a drink containing alc ohol? Monthly or less 01/22/2024 Average Number of Drinks Not on file 024 Frequency of Binge Drinking Not on file 12/0 07/2023 Personal Safety Answer Date Recorded Have you ever been in or are you currently in a harmful physical or emotional relationship or is someone making you feel afraid or unsafe? Denies 01/22/2024 Sex and Gender Information Value Date Recorded Sex Assigned at Not on file Legal Sex Male 1:50 AM TAPE SEWER Gender Identity Not on file Sexual Orientation Not on file Obstetrics History Last Filed Vital Signs Vital Sign Reading Time Taken Comments Blood Pressure 112/50 04/11/2024 9:31 AM TAPE SEWER Pulse 59 01/22/2024 11:43 AM TAPE SEWER Temperature 37.1 C (98.8 F) 01/22/2024 11:43 AM TAPE SEWER Respiratory Rate 16 01/22/2024 11:43 AM TAPE SEWER Oxygen Saturation 99% 01/22/2024 11:43 AM TAPE SEWER Inhaled Oxygen Concentration - - Weight 93 kg (205 lb 1.6 oz) 04/11/2024 9:31 AM TAPE SEWER Height 157.5 cm (5' 2 ) 04/11/2024 9:31 AM TAPE SEWER Body Mass Index 37.51 04/11/2024 9:31 AM TAPE SEWER Plan of Treatment Health Maintenance Due Date Last Done Comments Depression Screening 1941 Hepatitis B Screening 04/22/1958 Well Visit 65+ 2006 Zoster Vaccine (2 of 3) 12/03/2012 10/08/2012 Dilated Eye Exam 05/17/2022 05/17/2021 Covid-19 Vaccine (2023-2 5 season) 2023 01/06/2022, 06/06/2021, 12/13/2020, Additional history exists Influenza Vaccine (#1) 2023 , 12/13/2020, 12/08/2019, Additional history exists Hemoglobin A1C 10/09/2024 04/11/2024, 11/17, 08/06/2023, Additional history exists Albumin Creatinine Ratio, Urine [...] HEMOGLOBIN A1C Routine 04/11/2024 9 :39 AM TAPE SEWER Type 2 diabetes mellitus with hyperglycemia, with long-term current use of insulin (HCC) POCT GLUCOSE Routine 04/11/2024 9:32 AM TAPE SEWER Type 2 diabetes mellitus with hyperglycemia, with long-term current use of insulin (HCC) EGFR Routine 12/07/2023 11:26 AM CDT Type [...] * POCT hemoglobin A1c (04/11/2024 9:39 AM TAPE SEWER) Hemoglobin A1C, POC 7.6 4.0 - 5.6 % Blood 04/11/2024 9:39 AM TAPE SEWER us Mary Jo Atkinson NP POINT OF CARE TEST ORDERABLES F inal Result * POCT glucose (04/11/2024 9:32 AM TAPE SEWER) Glucose Blood, POC 164 mg/dL Blood 04/11/2024 9:32 AM TAPE SEWER Mary Jo Atkinson NP POINT OF CARE TEST ORDERABLES F inal Result * (ABNORMAL) eGFR (12/07/2023 11:26 AM CDT) Pathologist [facility] [place] eGFR 33(L) >=60 mL/min/1. 73 m2 Comment: [...] 12/07/2023 9:04 PM CDT Mary Jo Atkinson NP LAB BLOOD ORDERABLES Final Resu lt [facility] [address] [address] Department [place] [address] * (ABNORMAL) Albumin Creatinine Ratio, Urine (12/07/2023 11:26 AM CDT) Albumin Ur 80.8 mg/L Comment: Interpretive Data No reference range established. Current interpretive data was last revised 2018. Creatinine Ur 115.2 mg/dL [facility] Comment: Interpretive Data No reference range established. Current interpretive data was last revised 2018. Albumin Creatinine Ratio, Ur 70(H) 1 - 29 mg/g [facility] Urine 12/07/2023 11:2 6 AM CDT 12/07/2023 7:18 PM CDT us Mary Jo Atkinson NP LAB URINE ORDERABLES Final Resu lt [facility] [address] [address] Department [place] [address] * (ABNORMAL) Lipid panel (12/07/2023 11:26 AM [...] NCEP Expert Panel. Circulation 2004;110:227 3. [place] M et al. ÓSCAR Cardiol. 2019June 16;5(5):540-548. doi: [email or web address] [...] LAB BLOOD ORDERABLES Final Resu lt [facility] [address] [address] Department [place] [address] * Diabetic Eye Exam (05/17/2021) us Historical Provider MD HEALTH MAINTENANCE Final Result from Last 3 Months or Most Recently Relevant to Health Maintenance Insurance MEDICARE SOLUTIONS Advance Directives For more information, please contact: [phone] * Full Code (Latest Code Status on File) Date Activated Date Inactivated Comments 01/22/2024 8:59 AM 01/22/2024 4:07 PM * Full Code Date Activated Date Inactivated Comments 01/22/2024 8:59 AM 01/22/2024 8:59 AM * Full Code Date Activated Date Inactivated Comments 01/30/2021 8:31 AM 02/01/2021 9:56 PM Care Teams Marking Machine Operator Relationship Specialty Start Date End Date Demetrio Weston PA [address] [place] [address] PCP - General Family Practice 10/05/20
--- OUTSIDE RECORDS SUMMARY | 2024-05-05 09:52 | XMS_ITS | Clinical Summary ---
Author Organization [facility] Address [address] [place] [address] Care Team Providers Care Soda Tester Name Role Phone Blake Nixon MD Primary Care Provider [phone] Allergies No known active allergies Medications allopurinol 100 MG tablet Take 100 mg by mouth daily. 9 Active allopurinol 300 MG tablet Take 300 mg by mouth daily. Active omeprazole 40 MG capsule Take 1 capsule by mouth daily. Active losartan-hydrochl orothiazide 100-25 MG tablet Take 1 tablet by mouth daily. 1 Active simvastatin 10 MG tablet Take 10 mg by mouth daily. Active Cholecalciferol (D3 VITAMIN OR) Take 2,000 Units by mouth daily. Active Cobalamin Combinations (B-12) 100-5000 MCG SL Tab Take 1 capsule by mouth daily. Active aspirin 81 MG tablet Take 81 mg by mouth daily. Active metFORMIN 500 MG tablet Take 1 tablet by mouth 2 (two) times daily. Active acetaminophen-cod eine 300-30 MG tabletIndications :Acute Pain < 3 Day Supply Take 1 tablet by mouth every 4 (four) hours as needed for Pain. Indications: Acute Pain < 3 Day Supply 15 tablet Active Active Problems Problem Noted Date Diagnosed Date Rectal bleeding 03/04/2020 Social History Tobacco Use Types Packs/Day Years Used Date Smoking Tobacco: Former Smokeless Tobacco: Former Alcohol Use Standard Drinks/Week Comments Yes 0 (1 standard drink = 0.6 oz pur e alcohol) RARE Sex and Gender Information Value Date Recorded Sex Assigned at Not on file Legal Sex Male 9:42 PM INSPECTOR AUTOMATIC TYPEWRITER Gender Identity Not on file Sexual Orientation Not on file Last Filed Vital Signs Vital Sign Reading Time Taken Comments Blood Pressure 143/64 03/06/2020 3:56 AM INSPECTOR AUTOMATIC TYPEWRITER Pulse 65 03/06/2020 3:56 AM INSPECTOR AUTOMATIC TYPEWRITER Temperature 36.3 C (97.3 F) 03/06/2020 3:56 AM INSPECTOR AUTOMATIC TYPEWRITER Respiratory Rate 18 03/06/2020 3:56 AM INSPECTOR AUTOMATIC TYPEWRITER Oxygen Saturation 97% 03/06/2020 3:56 AM INSPECTOR AUTOMATIC TYPEWRITER Inhaled Oxygen Concentration - - Weight 98.1 kg (216 lb 4.3 oz) 03/04/2020 9:00 P M INSPECTOR AUTOMATIC TYPEWRITER Height 165.1 cm (5' 5 ) 03/04/2020 9:11 AM INSPECTOR AUTOMATIC TYPEWRITER Body Mass Index 35.99 03/04/2020 9:11 AM INSPECTOR AUTOMATIC TYPEWRITER Plan of Treatment Health Maintenance Due Date Last Done Comments DTaP, Tdap and Td Vaccines ( 1 - Tdap) 1959 Annual Medicare Wellness Visit 2006 Pneumococcal Vaccine: 65+ Ye ars (1 of 1 - PCV) 2006 Zoster Vaccines (2 of 3) 12/03/2012 10/08/2012 RSV Immunization or 60+ Years (1 - 1-dose 75+ series) 2016 COVID-19 Vaccine (2023-2 5 season) 2023 Influenza Adult (#1) 2023 [...] Date Last Indicated MRSA 01/09/2017 01/09/2017 Insurance Advance Directives * Full Code (Latest Code Status on File) Date Activated Date Inactivated Comments 03/04/2020 9:06 AM 03/06/2020 2:54 PM Care Teams Soda Tester Relationship Specialty Start Date End Date Blake Nixon MD [address] [place] [phone] PCP - General FAMILY PRACTICE 07/15/18
--- OUTSIDE RECORDS SUMMARY | 2024-05-05 09:52 | XMS_ITS | Clinical Summary ---
Author Organization [facility] Address [address], [address] [address] Phone Care Team Providers Care Torch Burner Name Role Phone Demetiro Araiza MD Unavailable [phone] Ronan Farley MD Unavailable [phone] Alex Cross MD Unavailable [phone] Demetrio Weston Primary Care Provider [phone] Mary Jo Atkinson APRN, [employer] Unavailable [phone] Allergies No known active allergies Medications omeprazole [...] neoplasm 12/30/2016 Overview (02/14/2019): Clinical stage IIA ([id number] Benjamín 3 + 4 histology and PSA [...] IIA(T2a, N0, M0, 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, [place] 7 - Moderately differentiated (moderate anaplasia)) - Signed by Demetrio Araiza MD on 02/23/2016 Encounters Date Type Department Care Team Description 04/01/2024 2:36 PM WELDER GAS AUTOMATIC - 04/01/2024 11:59 PM WELDER GAS AUTOMATIC [facility] [address] [place] [address] Felipe Mclaughlin MD Discharge Disposition: Discharged to home or Selfcare 04/01/2024 Travel 04/01/2024 [facility] [address] [place] [address] Felipe Mclaughlin MD Stage 3b chronic kidney disease (HCC) (Primary Dx) from Last 3 Months Family History Medical History Relation Name Comments [...] 64 11/05/2022 9:01 AM CDT Temperature 36.7 C (98 F) 11/05/2022 9:01 AM CDT Respiratory Rate 16 [...] 1940 Hepatitis C Virus (HCV) Screening 1940 Diabetes: Nephropathy Screening 03/11/2023 03/11/2022, 03/16/2021, 03/13/2021, Additional history exists Diabetes: Hemoglobin A1c 06/06/2024 024, 10/31/2022, 07/31/2022, Additional history exists SARS-COV-2 Immunization () 06/07/2024 12/08/2023, 11/22/2022, 01/06/2022, Additional history exists DTaP/Tdap/Td Immunization Discontinued 02/14/2019, TdaP Immunization Completed 02/14/2019, 05/05/2012 Pneumococcal Immunization (50+ years) Completed 01/07/2022, 01/07/2021, 12/07/2020, Additional history exists Pneumococcal Immunization Combined Discontinued 01/07/2022, 01/07/2021, 12/07/2020, Additional history exists Respiratory Syncytial Virus (RSV) Immunization (Adult) Completed 08/27/2023 Zoster Immunization Completed 09/29/2023, 07/28/2023, 10/08/2012 Influenza Immunization Completed , 11/22/2022, 12/17/2021, Additional history exists Hepatitis B Immunization Aged Out No longer eligible based on patient's age to complete this topic Meningococcal Immunization (ACWY) Aged Out No longer eligible based on patient's age to complete this topic Rotavirus Immunization Aged Out No lo nger eligible based on patient's age to complete this topic Procedures Procedure Name Priority Date/Time Associated Diagnosis Comments CT ABDOMEN PELVIS W/O CONTRAST Stat with Interpretation 04/01/2024 2:50 PM WELDER GAS AUTOMATIC Stage 3b chronic kidney disease (HCC) CMP (COMPREHENSIVE METABOLIC PANEL) 03/11/2022 12:00 AM WELDER GAS AUTOMATIC HEMOGLOBIN A1C W/ ESTIMATED GLUCOSE STAT 03/16/2021 10:06 PM WELDER GAS AUTOMATIC from Last 3 Months or Most Recently Relevant to Health Maintenance Results * CT ABDOMEN PELVIS W/O CONTRAST (04/01/2024 2:50 PM WELDER GAS AUTOMATIC) Anatomical Region Laterality Modality Abdomen N/A Computed Tomogra phy 04/01/2024 3:17 PM WELDER GAS AUTOMATIC Impressions 04/01/2024 3:19 PM WELDER GAS AUTOMATIC IMPRESSION: Extensive colonic diverticulosis with mild stranding centered around a descending colon diverticulum which may reflect early/mild diverticulitis. No free air or organized drainable fluid collection. Nonobstructing right-sided nephrolithiasis. No hydronephrosis. Indeterminate bilateral renal lesions. Recommend correlation with prior outside imaging if available to demonstrate stability. Otherwise, may consider further evaluation with nonemergent abdominal MRI with and without contrast. Tiny 1-2 mm pulmonary nodules. Per Fleischner Society Guidelines, no further investigation recommended. Additional incidental and chronic findings as above. Narrative 04/01/2024 3:19 PM WELDER G[employer]OMATIC EXAM DESCRIPTION: CT ABDOMEN PELVIS W/O CONTRAST REASON FOR STUDY: ODALIS on CKD r/o obstructive uropathy. Elevated creatine 12/09. US 02/08 showed right nephrolithiasis and atrophic left kidney. Hx left renal cyst, HTN,DM, prostate ca. TECHNIQUE: CT scan of the abdomen and pelvis performed without intravenous and without oral contrast using helical scanning technique. Reconstructed coronal and sagittal MPR images reviewed. All images stored on PACS. Automated exposure control was used as a dose optimization technique for this examination. COMPARISON: None. REFERENCE: Per ACR white paper recommendations, unless otherwise specified no follow-up imaging is recommended for incidental renal and adrenal lesions per consensus recommendations based on imaging criteria. Further lab evaluation could be pursued based on clinical findings. FINDINGS: Absence of intravenous contrast reduces sensitivity for detection of pathology. Findings made within these confines. LOWER CHEST: Coronary atherosclerotic calcifications. Tiny 1-2 mm pulmonary nodules within the right middle lobe and right lower lobe (such as 4; 2). LIVER: Early morphologic changes of chronic liver disease including lobar redistribution and fissural widening. No concerning lesion within the confines of a noncontrast examination. GALLBLADDER/BILE DUCTS: Gallbladder is surgically absent. SPLEEN: Small splenule. No splenomegaly. PANCREAS: No significant ductal dilatation or discrete lesion. ADRENALS: No measurable nodule. KIDNEYS/URETERS: Indeterminate 1.0 cm hypodensity of the lateral left interpolar kidney (4; 70). Left inferior renal pole exophytic cyst. Additional subcentimeter hypodensities of the anterior right inferior renal pole and interpolar kidney measuring above 70 Hounsfield units suggestive of proteinaceous/hemorrhagic cysts (such as 4; 73 and 4; 55). Indeterminate 1.2 cm hypodensity of the right inferior renal pole (4; 84). Nonobstructing right-sided nephrolithiasis measuring up to 3 mm. No hydronephrosis. BLADDER/URINARY: No significant bladder wall thickening. REPRODUCTIVE: Radiation seeds noted. GASTROINTESTINAL: Extensive colonic diverticulosis. Mild stranding centered around a descending colon diverticulum (such as 4; 101). No significant colonic wall thickening. Appendix is surgically absent. Large superiorly directed duodenal diverticulum at the 3rd portion of the duodenum with air-fluid level. No significant adjacent inflammatory changes. No bowel obstruction. LYMPH NODES: No pathologically enlarged abdominal or pelvic lymphadenopathy. PERITONEUM/RETROPERITONEUM: Trace stranding along the distal descending colon as above. No free air. No organized drainable fluid collection. VASCULATURE: Multifocal atherosclerotic changes of the abdominal aorta and its major branches. No abdominal aortic aneurysm. MUSCULOSKELETAL: Postsurgical changes of the anterior abdominal wall status post hernia repair with mesh. Tiny fat containing bilateral inguinal hernias. Multilevel degenerative changes of the visualized spine. Grade 1 retrolisthesis of L2 on L3 and L3 on L4. Osteopenia. No aggressive appearing osseous lesions. No acute osseous abnormality. OTHER: No significant abnormality. THIS IS AN ELECTRONICALLY VERIFIED FINAL REPORT 04/01/2024 3:17 PM - Electronically signed by Kobe Jay M.D. NS: NS Report ID: [id number] Reading Location: [id number] Procedure Note Kobe Jay MD - 04/01/2024 EXAM DESCRIPTION: CT ABDOMEN PELVIS W/O CONTRAST REASON FOR STUDY: ODALIS on CKD r/o obstructive uropathy. Elevated creatine 12/09. US 02/08 showed right nephrolithiasis and atrophic left kidney. Hx left renal cyst, HTN,DM, prostate ca. TECHNIQUE: CT scan of the abdomen and pelvis performed without intravenous and without oral contrast using helical scanning technique. Reconstructed coronal and sagittal MPR images reviewed. All images stored on PACS. Automated exposure control was used as a dose optimization technique for this examination. COMPARISON: None. REFERENCE: Per ACR white paper recommendations, unless otherwise specified no follow-up imaging is recommended for incidental renal and adrenal lesions per consensus recommendations based on imaging criteria. Further lab evaluation could be pursued based on clinical findings. FINDINGS: Absence of intravenous contrast reduces sensitivity for detection of pathology. Findings made within these confines. LOWER CHEST: Coronary atherosclerotic calcifications. Tiny 1-2 mm pulmonary nodules within the right middle lobe and right lower lobe (such as 4; 2). LIVER: Early morphologic changes of chronic liver disease including lobar redistribution and fissural widening. No concerning lesion within the confines of a noncontrast examination. GALLBLADDER/BILE DUCTS: Gallbladder is surgically absent. SPLEEN: Small splenule. No splenomegaly. PANCREAS: No significant ductal dilatation or discrete lesion. ADRENALS: No measurable nodule. KIDNEYS/URETERS: Indeterminate 1.0 cm hypodensity of the lateral left interpolar kidney (4; 70). Left inferior renal pole exophytic cyst. Additional subcentimeter hypodensities of the anterior right inferior renal pole and interpolar kidney measuring above 70 Hounsfield units suggestive of proteinaceous/hemorrhagic cysts (such as 4; 73 and 4; 55). Indeterminate 1.2 cm hypodensity of the right inferior renal pole (4; 84). Nonobstructing right-sided nephrolithiasis measuring up to 3 mm. No hydronephrosis. BLADDER/URINARY: No significant bladder wall thickening. REPRODUCTIVE: Radiation seeds noted. GASTROINTESTINAL: Extensive colonic diverticulosis. Mild stranding centered around a descending colon diverticulum (such as 4; 101). No significant colonic wall thickening. Appendix is surgically absent. Large superiorly directed duodenal diverticulum at the 3rd portion of the duodenum with air-fluid level. No significant adjacent inflammatory changes. No bowel obstruction. LYMPH NODES: No pathologically enlarged abdominal or pelvic lymphadenopathy. PERITONEUM/RETROPERITONEUM: Trace stranding along the distal descending colon as above. No free air. No organized drainable fluid collection. VASCULATURE: Multifocal atherosclerotic changes of the abdominal aorta and its major branches. No abdominal aortic aneurysm. MUSCULOSKELETAL: Postsurgical changes of the anterior abdominal wall status post hernia repair with mesh. Tiny fat containing bilateral inguinal hernias. Multilevel degenerative changes of the visualized spine. Grade 1 retrolisthesis of L2 on L3 and L3 on L4. Osteopenia. No aggressive appearing osseous lesions. No acute osseous abnormality. OTHER: No significant abnormality. THIS IS AN ELECTRONICALLY VERIFIED FINAL REPORT 04/01/2024 3:17 PM - Electronically signed by Kobe Jay M.D. NS: NS Report ID: [id number] Reading Location: [place] [id number] IMPRESSION: Extensive colonic diverticulosis with mild stranding centered around a descending colon diverticulum which may reflect early/mild diverticulitis. No free air or organized drainable fluid collection. Nonobstructing right-sided nephrolithiasis. No hydronephrosis. Indeterminate bilateral renal lesions. Recommend correlation with prior outside imaging if available to demonstrate stability. Otherwise, may consider further evaluation with nonemergent abdominal MRI with and without contrast. Tiny 1-2 mm pulmonary nodules. Per Fleischner Society Guidelines, no further investigation recommended. Additional incidental and chronic findings as above. Felipe Mclaughlin MD IMG CT ORDERABLES Final Res ult * CMP (COMPREHENSIVE METABOLIC PANEL) (03/11/2022 12:00 AM [employer]) 03/11/2022 Provider Scan CHEMISTRY ORDERABLES Final Resul t SCAN * (ABNORMAL) Hemoglobin A1C w/ Estimated Glucose (03/16/2021 10:06 PM WELDER G[employer] AUTOMATIC) HGB-A1C 12.6(H) 4.0 - 6.0 % 03/16/2021 11:39 PM WELDER GAS AUTOMATIC [facility] Est Average Glucose 314.9 mg/dL 03/16/2021 11:39 PM WELDER GAS AUTOMATIC [facility] Blood Venipuncture / Unknown 03/16/2021 10:06 PM WELDER GAS AUTOMATIC 03/16/2021 11:10 PM WELDER GAS AUTOMATIC [facility]arrative [facility] - 03/16/2021 11:39 PM WELDER GAS AUTOMATIC HEMOGLOBIN A1C: DIABETIC PATIENTS: WELL-CONTROLLED: 6.2 - 7.0 INTERMEDIATE WELL-CONTROLLED: 7.0 - 9.0 POORLY-CONTROLLED: >9.0 us Rajan Carvalho MD CHEMISTRY ORDERABLES Anjali shipman Result [facility] [address] [place] [address] from Last 3 Months or Most Recently Relevant to Health Maintenance Insurance [facility] Care Teams Torch Burner Relationship Specialty Start Date End Date Demetrio Weston PAC [address] [place] [id number] PCP - General Physician Investigations Consultant 11/08/20 Demetrio Araiza MD Consulting Physician Radiation Oncology 02/14/16 Ronan Farley MD Consulting Physician Urology 02/22/16 Alex Cross MD [address] [place] [address] Consulting Physician Orthopaedic Surgery 02/23/16 Mary Jo Atkinson, GIN CLERK, [employer] NPI: [id number] [place] [address] [address] [place] [id number] Nurse Practitioner Endocrinology 11/14/21
--- OUTSIDE RECORDS SUMMARY | 2024-05-05 09:52 | XMS_ITS | Clinical Summary ---
Author Organization [facility] Address [address] [place] [address] Care Team Providers Care Tractor Trailer Driver Name Role Phone Demetrio Weston Primary Care Provider [phone] Allergies Active Allergy Reactions Criticality Noted Date Comments Metformin 02/01/2024 Medications allopurinol (ZYLOPRIM) 100 MG tablet Take 1 tablet by mouth 1 (one) time each day Active Calcium [...] Encounters Date Type Department Care Team Description 04/08/2024 Office Communication [facility], [address] [address] Felipe Mclaughlin MD 04/04/2024 Documentation Only [facility], [address] [phone] Felipe Mclaughlin MD 04/01/2024 10:30 AM PRIVATE BRANCH EXCHANGE SERVICE ADVISER Office Visit [facility], [facility] [address] [facility] [place] [phone] Felipe Mclaughlin MD Chronic kidney disease stage 3B (HCC) (Primary Dx) 04/01/[address] [facility] [address] [facility] [place] [phone] [place] 04/01/[address] [facility] [address] [facility] [place] [phone] [place] 03/25/2024 Documentation Only [facility], [facility] [address] [facility] [place] [phone] Felipe Mclaughlin MD 03/21/2024 Documentation Only [facility], [address] [address] Felipe Mclaughlin MD 03/18/2024 Documentation Only [facility], [address] [phone] Felipe Mclaughlin MD 02/23/2024 Documentation Only [facility], [address] [address] Felipe Mclaughlin MD from Last 3 Months Family History Medical History Relation Comments Cancer Brother Cancer Paternal Grandmother Relation Status Comments Brother Father Mother Paternal Grandmother Social History Tobacco Use Types Packs/Day Years Used Date Smoking Tobacco: Former Cigarettes Tobacco Cessation:Counseling Given: Not Answered Alcohol Use Standard Drinks/Week Comments Not Currently 0 (1 standard drink = 0.6 oz pur e alcohol) Sex and Gender Information Value Date Recorded Sex Assigned at Not on file Legal Sex Male 11:25 AM EDT Gender Identity Not on file Sexual Orientation Not on file Last Filed Vital Signs Vital Sign Reading Time Taken Comments Blood Pressure 130/60 04/01/2024 10:49 AM PRIVATE BRANCH EXCHANGE SERVICE ADVISER Pulse 64 04/01/2024 10:49 AM PRIVATE BRANCH EXCHANGE SERVICE ADVISER Temperature 36.7 C (98 F) 04/01/2024 10:49 AM PRIVATE BRANCH EXCHANGE SERVICE ADVISER Respiratory Rate 15 04/01/2024 10:49 AM PRIVATE BRANCH EXCHANGE SERVICE ADVISER Oxygen Saturation 96% 04/01/2024 10:49 AM PRIVATE BRANCH EXCHANGE SERVICE ADVISER Inhaled Oxygen Concentration - - Weight 95.3 kg (210 lb) 04/01/2024 10:49 AM PRIVATE BRANCH EXCHANGE SERVICE ADVISER Height 157.5 cm (5' 2 ) 02/01/2024 3:18 PM PRIVATE BRANCH EXCHANGE SERVICE ADVISER Body Mass Index 38.41 02/01/2024 3:18 PM PRIVATE BRANCH EXCHANGE SERVICE ADVISER Plan of Treatment Upcoming Encounters Date Type Department Care Team (Late st Contact Info) Description 05/19/2024 11:15 AM CDT [facility] [address] [facility] [address] [place] [address] Felipe Mclaughlin MD [address] [facility] [address] [place] [address] Health Maintenance Due Date Last Done Comments Influenza Vaccine (#1) 2023 , 12/13/2020, 12/08/2019, Additional history exists Diabetes: Ophthalmology [...] Procedure Name Priority Date/Time Associated Diagnosis Comments EXT RESULT ENTRY Routine 03/17/2024 from Last 3 Months Results * (ABNORMAL) EXT RESULT ENTRY (03/17/2024) Iron 56 UG/DL TIBC 312 ug/dL Sodium 137 137 - 147 Potassium 4.7 3.4 - 5.5 Chloride 102.0 99.0 - 108.0 Carbon Dioxide 24 mmol/L Anion Gap 11 <=30 MMOL/L Glucose 253 60 - 200 BUN 35 4 - 21 mg/dL Creatinine 2.31 0.60 - 1.30 mg/dL Albumin 3.6 3.5 - 5.0 g/dL Calcium 8.8 8.7 - 10.7 mg/dL Phosphorus, Serum 4.7 eGFR 27 Osmolality Calculation 301 Vitamin D, 1,25-Dihydroxy 33 pg/mL PTH 53 PG/ML 03/17/2024 us Historical Provider LAB BLOOD ORDERABLES Anjali l Result from Last 3 Months Insurance [facility] [place] [place] [address] Advance Directives Documents on File Type Date Recorded Patient Trouble Operator Expl anation Advance Care Planning 03/10/2024 2:25 PM Care Teams Tractor Trailer Driver Relationship Specialty Start Date End Date Demetrio Weston PA [address] [place] [address] PCP - General Internal Medicine 12/09/23
--- OUTSIDE RECORDS SUMMARY | 2024-05-05 09:52 | XMS_ITS | Encounter Summary ---
Author Organization [facility] Address [facility] [place] [address] Care Team Providers Care Railroad Supervisor Of Engines Name Role Phone Blake Nixon MD Primary Care Provider [phone] Encounter Details Date Type Department Care Team (Late st Contact Info) Description 03/08/2020 Hospital Follow-up Call [facility] Orthopa[facility]ics [address] [place] [address] Tracie Gimenez RN Social History Tobacco Use Types Packs/Day Years Used Date Smoking Tobacco: Former Smokeless Tobacco: Former Alcohol Use Standard Drinks/Week Comments Yes 0 (1 standard drink = 0.6 oz pur e alcohol) RARE Sex and Gender Information Value Date Recorded Sex Assigned at Not on file Legal Sex Male 9:42 PM OCCUPATIONAL HEALTH NURSE Gender Identity Not on file Sexual Orientation Not on file COVID-19 Exposure Response Date Recorded In the last month, have you been in contact with someone who was confirmed or suspected to have Coronavirus / COVID-19? No / Unsure 03/04/2020 9:26 AM OCCUPATIONAL HEALTH NURSE documented as of this encounter Functional Status * RETIRED Are you deaf or do you have serious difficulty hearing Answer Date of Assessment Author Status Yes 03/04/2020 9:08 AM OCCUPATIONAL HEALTH NURSE Activ e * RETIRED Are you blind or do you have serious difficulty seeing, even when wearing glasses? Answer Date of Assessment Author Status No 03/04/2020 9:08 AM OCCUPATIONAL HEALTH NURSE Activ e * Do you have serious difficulty walking or climbing stairs? Answer Date of Assessment Author Status No 03/04/2020 9:08 AM OCCUPATIONAL HEALTH NURSE Montez Camacho RN Active * Do you [...] documented as of this encounter Care Teams Railroad Supervisor Of Engines Relationship Specialty Start Date End Date Blake Nixon MD [address] [place] [phone] PCP - General FAMILY PRACTICE 07/15/18 documented as of this encounter
--- OUTSIDE RECORDS SUMMARY | 2024-05-05 09:53 | XMS_ITS | Data Portability ---
Author Organization [facility] MARISOLElizabeth Amador Address [address] [facility], [place] [address] Care Team Providers Care Chief Minister Name Role Phone NADINE WESTON Primary Care Provider SHANIKA HIGGINS Urologist Assessment No assessment recorded. Plan of Treatment Reminders Order Date Submit Date Provider Last Modified By Organization Details Last Modified Time Details Appointments None recorded. Lab CBC 2023 024 [facility], [address] [facility], [address], [address], 10:14:33 CMP, serum or plasma 2023 024 [facility], [address] [place] [address], [address], 10:14:30 lipid panel, serum 2023 024 [facility], [address] [place] [address], [address], 10:14:29 CBC 2023 024 [facility], [address] [facility], [facility] [address], [place], [address], 10:16:25 CMP, serum or plasma 2023 024 [facility], [address] [facility], [facility] [address], [place], [address], 03/08/202 4 10:16:23 lipid panel, serum 2023 024 [facility], [address] [facility], [place], [address], 4 10:16:23 HbA1c (hemoglobin A1c), blood 2023 024 LYNETTE In-Office Order, Internal Use Only DO Not Attach Compendium DO Not Attach Compendium, Do Not Delete/merge, [id number] 4 12:59:48 CBC 2022 023 [facility], [address] [facility], [facility] 2, [place], [address], 3 19:08:57 Referral None recorded. Procedures None recorded. Surgeries None recorded. Imaging XR, knee [address] [facility], [address] [place], [address], 3 09:22:45 Medication Orders azithromyci n 500 mg tablet 2022 023 LYNETTE [facility], [address] [place] [address], [address], [place], [place], [id number], 4 14:58:27 benzonatate 200 mg capsule 2022 023 L[facility]NETTE [facility], [address] [place] [address], [address], [place], [place], [id number], 4 14:58:28 azithromyci n 500 mg tablet 2022 023 [facility], [address] [place] [address], [address], [place], [place], [id number], 4 14:56:34 Patient TargetsNo targets recorded. Patient Instructions Encounter Date Encounter Id Patient Instructions Last Modified By Organization Details Last Modified Time 03/21/2022 [id number] A healthy lifestyle: care instructions jnanney Not available 03/21/2022 11:15:30 05/12/2022 [id number] A healthy lifestyle: care instructions jnanney Not available 05/12/2022 11:35:03 anemia: care instructions jnanney Not available 05/12/2022 11:35:03 01/27/2023 [id number] A healthy lifestyle: care instructions jnanney Not available 01/27/2023 11:08:05 04/23/2023 [id number] type 2 diabetes: care instructions jnanney Not available 04/23/2023 12:22:42 12/14/2023 [id number] A healthy lifestyle: care instructions jnanney Not [...] WBC 10.4 K/uL 3.4-10 .8 Not Available [facility] [address] [place], [address], 05/13/2022 19:08:57 05/13/1905/13/2022 CBC, PLATE LET, NO DIFFE RENTI AL RBC 4.4 M/uL 4.5-6. 3 below low normal Not Available [facility] [address] [place], [address], 05/13/2022 19:08:57 05/13/19 23 05/13/2022 CBC, PLATE LET, NO DIFFE RENTI AL hemoglobin 12.7 g/dL 13.5-1 7.5 below low normal Not Available [facility] [address] [place], [address], 05/13/2022 19:08:57 05/13/1905/13/2022 CBC, PLATE LET, NO DIFFE RENTI AL hematocrit 39.1 % 40.0-5 2.0 below low normal Not Available [facility] [address] [place], [address], 05/13/2022 19:08:57 05/13/1905/13/2022 CBC, PLATE LET, NO DIFFE RENTI AL MCV 89 fL 80-95 Not Available [facility] [address] [place], [address], 05/13/2022 19:08:57 05/13/1905/13/2022 CBC, PLATE LET, NO DIFFE RENTI AL MCH 29 pg 27-32 Not Available [facility] [address] [place], [address], 05/13/2022 19:08:57 05/13/1905/13/2022 CBC, PLATE LET, NO DIFFE RENTI AL MCHC 33 g/dL 32-36 Not Available [facility] [address] [place], [address], 05/13/2022 19:08:57 05/13/1905/13/2022 CBC, PLATE LET, NO DIFFE RENTI AL RDW 14.4 % 11.5-1 4.5 Not Available [facility] [address] [place], [address], 05/13/2022 19:08:57 05/13/1905/13/2022 CBC, PLATE LET, NO DIFFE RENTI AL platelets 270 K/uL 155-37 9 MPV 10.6 FL 8.9-1 2.7 N Not Available [facility] [address] [place], [address], 05/13/2022 19:08:57 05/13/1905/13/2022 CBC, PLATE LET, NO DIFFE RENTI AL NRBC 0 % Not Available [facility] [address] [place] [address], [address], 05/13/2022 19:08:57 04/23/19 24 04/24/2023 LIPID PANEL cholesterol, total 144 mg/dL 100-19 9 Not Available [address], [address], 04/24/2023 10:16:23 04/23/19 24 04/24/2023 LIPID PANEL triglyceride s 329 mg/dL 0-149 above high normal Not Available [address], [address], 04/24/2023 10:16:23 04/23/19 24 04/24/2023 LIPID PANEL HDL cholesterol 31 mg/dL >39 below low normal Not Available [address], [address], 04/24/2023 10:16:23 04/23/19 24 04/24/2023 LIPID PANEL VLDL cholesterol joel 52 mg/dL 5-40 above high normal Not Available [address], [address], 04/24/2023 10:16:23 04/23/19 24 04/24/2023 LIPID PANEL LDL chol calc (nih) 61 mg/dL 0-99 Not Available [address], [address], 04/24/2023 10:16:23 04/23/19 24 04/24/2023 COMP. METAB OLIC PANEL (14) glucose 189 mg/dL 70-99 above high normal Not Available [address], [address], 04/24/2023 10:16:23 04/23/19 24 04/24/2023 COMP. METAB OLIC PANEL (14) BUN 26 mg/dL 8-27 Not Available [address], [address], 04/24/2023 10:16:23 04/23/19 24 04/24/2023 COMP. METAB OLIC PANEL (14) creatinine 1.54 mg/dL 0.76-1 .27 above high normal Not Available [address], [address], 04/24/2023 10:16:23 04/23/19 24 04/24/2023 COMP. METAB OLIC PANEL (14) eGFR 45 mL/mi n/1.7 3 >59 below low normal Not Available [address], [address], 04/24/2023 10:16:23 04/23/19 24 04/24/2023 COMP. METAB OLIC PANEL (14) BUN/creatini ne ratio 17 10-24 Not Available [address], [address], 04/24/2023 10:16:23 04/23/19 24 04/24/2023 COMP. METAB OLIC PANEL (14) sodium 138 mmol/ L 134-14 4 Not Available [address], [address], 04/24/2023 10:16:23 04/23/19 24 04/24/2023 COMP. METAB OLIC PANEL (14) potassium 4.7 mmol/ L 3.5-5. 2 Not Available [address], [address], 04/24/2023 10:16:23 04/23/19 24 04/24/2023 COMP. METAB OLIC PANEL (14) chloride 102 mmol/ L 96-106 Not Available [address], [address], 04/24/2023 10:16:23 04/23/19 24 04/24/2023 COMP. METAB OLIC PANEL (14) carbon dioxide, total 19 mmol/ L 20-29 below low normal Not Available [address], [address], 04/24/2023 10:16:23 04/23/19 24 04/24/2023 COMP. METAB OLIC PANEL (14) calcium 9.3 mg/dL 8.6-10 .2 Not Available [address], [address], 04/24/2023 10:16:23 04/23/19 24 04/24/2023 COMP. METAB OLIC PANEL (14) protein, total 7.2 g/dL 6.0-8. 5 Not Available [address], [address], 04/24/2023 10:16:23 04/23/19 24 04/24/2023 COMP. METAB OLIC PANEL (14) albumin 4.5 g/dL 3.7-4. 7 Not Available [address], [address], 04/24/2023 10:16:23 04/23/19 24 04/24/2023 COMP. METAB OLIC PANEL (14) globulin, total 2.7 g/dL 1.5-4. 5 Not Available [address], [address], 04/24/2023 10:16:23 04/23/19 24 04/24/2023 COMP. METAB OLIC PANEL (14) A/G ratio 1.7 1.2-2. 2 Not Available [address], [address], 04/24/2023 10:16:23 04/23/19 24 04/24/2023 COMP. METAB OLIC PANEL (14) bilirubin, total 0.3 mg/dL 0.0-1. 2 Not Available [address], [address], 04/24/2023 10:16:23 04/23/19 24 04/24/2023 COMP. METAB OLIC PANEL (14) alkaline phosphatase 74 IU/L 44-121 Not Available [address], [address], 04/24/2023 10:16:23 04/23/19 24 04/24/2023 COMP. METAB OLIC PANEL (14) AST (SGOT) 25 IU/L 0-40 Not Available [address], [address], 04/24/2023 10:16:23 04/23/19 24 04/24/2023 COMP. METAB OLIC PANEL (14) ALT (SGPT) 23 IU/L 0-44 Not Available [address], [address], 04/24/2023 10:16:23 04/23/19 24 04/24/2023 LITHO LINK CKD PROGR AM interpretati on Note Suppl ement al repor t is avail able. Not Available [address], [address], 04/24/2023 10:16:24 04/23/19 24 04/24/2023 LITHO LINK CKD PROGR AM pdf . Not Available [address], [address], 04/24/2023 10:16:24 04/23/19 24 04/24/2023 CARDI OVASC ULAR REPOR T interpretati on Note Suppl ement al repor t is avail able. Not Available [address], [address], 04/24/2023 10:16:25 04/23/19 24 04/24/2023 CARDI OVASC ULAR REPOR T pdf Not applic able Not Available [address], [address], 04/24/2023 10:16:25 04/23/19 24 04/24/2023 CBC, PLATE LET, NO DIFFE RENTI AL WBC 9.6 x10e3 /uL 3.4-10 .8 Not Available [address], [address], 04/24/2023 10:16:25 04/23/1904/24/2023 CBC, PLATE LET, NO DIFFE RENTI AL RBC 4.64 x10e6 /uL 4.14-5 .80 Not Available [address], [address], 04/24/2023 10:16:25 04/23/19 24 04/24/2023 CBC, PLATE LET, NO DIFFE RENTI AL hemoglobin 13.5 g/dL 13.0-1 7.7 Not Available [address], [address], 04/24/2023 10:16:25 04/23/19 24 04/24/2023 CBC, PLATE LET, NO DIFFE RENTI AL hematocrit 40.8 % 37.5-5 1.0 Not Available [address], [address], 04/24/2023 10:16:25 04/23/1904/24/2023 CBC, PLATE LET, NO DIFFE RENTI AL MCV 88 fL 79-97 Not Available [address], [address], 04/24/2023 10:16:25 04/23/19 24 04/24/2023 CBC, PLATE LET, NO DIFFE RENTI AL MCH 29.1 pg 26.6-3 3.0 Not Available [address], [address], 04/24/2023 10:16:25 04/23/19 24 04/24/2023 CBC, PLATE LET, NO DIFFE RENTI AL MCHC 33.1 g/dL 31.5-3 5.7 Not Available [address], [address], 04/24/2023 10:16:25 04/23/19 24 04/24/2023 CBC, PLATE LET, NO DIFFE RENTI AL RDW 13.5 % 11.6-1 5.4 Not Available [address], [address], 04/24/2023 10:16:25 04/23/19 24 04/24/2023 CBC, PLATE LET, NO DIFFE RENTI AL platelets 289 x10e3 /uL 150-45 0 Not Available [address], [address], 04/24/2023 10:16:25 04/23/19 24 04/23/2023 HbA1c (hemo globi n A1c), blood HbA1c 8.8 Not Available In-Office Order Internal Use Only DO Not Attach Compendium DO Not Attach Compendium, Do Not Delete/merge, [id number] 04/23/2023 12:22:09 12/14/1912/15/2023 LIPID PANEL cholesterol, total 163 mg/dL 100-19 9 Not Available [address], [address], 12/15/2023 10:14:28 12/14/1912/15/2023 LIPID PANEL triglyceride s 244 mg/dL 0-149 above high normal Not Available [address], [address], 12/15/2023 10:14:28 12/14/19 24 12/15/2023 LIPID PANEL HDL cholesterol 34 mg/dL >39 below low normal Not Available [address], [address], 12/15/2023 10:14:28 12/14/1912/15/2023 LIPID PANEL VLDL cholesterol joel 41 mg/dL 5-40 above high normal Not Available [address], [address], 12/15/2023 10:14:28 12/14/1912/15/2023 LIPID PANEL LDL chol calc (nih) 88 mg/dL 0-99 Not Available [address], [address], 12/15/2023 10:14:28 12/14/1912/15/2023 COMP. METAB OLIC PANEL (14) glucose 176 mg/dL 70-99 above high normal Not Available [address], [address], 12/15/2023 10:14:30 12/14/1912/15/2023 COMP. METAB OLIC PANEL (14) BUN 26 mg/dL 8-27 Not Available [address], [address], 12/15/2023 10:14:30 12/14/1912/15/2023 COMP. METAB OLIC PANEL (14) creatinine 1.71 mg/dL 0.76-1 .27 above high normal Not Available [address], [address], 12/15/2023 10:14:30 12/14/19 24 12/15/2023 COMP. METAB OLIC PANEL (14) eGFR 39 mL/mi n/1.7 3 >59 below low normal Not Available [address], [address], 12/15/2023 10:14:30 12/14/19 24 12/15/2023 COMP. METAB OLIC PANEL (14) BUN/creatini ne ratio 15 10-24 Not Available [address], [address], 12/15/2023 10:14:30 12/14/19 24 12/15/2023 COMP. METAB OLIC PANEL (14) sodium 139 mmol/ L 134-14 4 Not Available [address], [address], 12/15/2023 10:14:30 12/14/1912/15/2023 COMP. METAB OLIC PANEL (14) potassium 4.5 mmol/ L 3.5-5. 2 Not Available [address], [address], 12/15/2023 10:14:30 12/14/19 24 12/15/2023 COMP. METAB OLIC PANEL (14) chloride 104 mmol/ L 96-106 Not Available [address], [address], 12/15/2023 10:14:30 12/14/19 24 12/15/2023 COMP. METAB OLIC PANEL (14) carbon dioxide, total 22 mmol/ L 20- Not Available [address], [address], 12/15/2023 10:14:30 12/14/19 24 12/15/2023 COMP. METAB OLIC PANEL (14) calcium 9.0 mg/dL 8.6-10 .2 Not Available [address], [address], 12/15/2023 10:14:30 12/14/19 24 12/15/2023 COMP. METAB OLIC PANEL (14) protein, total 6.9 g/dL 6.0-8. 5 Not Available [address], [address], 12/15/2023 10:14:30 12/14/19 24 12/15/2023 COMP. METAB OLIC PANEL (14) albumin 4.3 g/dL 3.7-4. 7 Not Available [address], [address], 12/15/2023 10:14:30 12/14/19 24 12/15/2023 COMP. METAB OLIC PANEL (14) globulin, total 2.6 g/dL 1.5-4. 5 Not Available [address], [address], 12/15/2023 10:14:30 12/14/19 24 12/15/2023 COMP. METAB OLIC PANEL (14) bilirubin, total 0.3 mg/dL 0.0-1. 2 Not Available [address], [address], 12/15/2023 10:14:30 12/14/19 24 12/15/2023 COMP. METAB OLIC PANEL (14) alkaline phosphatase 59 IU/L 44-121 Not Available [address], [address], 12/15/2023 10:14:30 12/14/19 24 12/15/2023 COMP. METAB OLIC PANEL (14) AST (SGOT) 19 IU/L 0-40 Not Available [address], [address], 12/15/2023 10:14:30 12/14/19 24 12/15/2023 COMP. METAB OLIC PANEL (14) ALT (SGPT) 18 IU/L 0-44 Not Available [facility] & [address], [address], 12/15/2023 10:14:30 12/14/1912/15/2023 LITHO LINK CKD PROGR AM interpretati on Note Suppl ement al repor t is avail able. Not Available [facility] & [address], [address], 12/15/2023 10:14:32 12/14/1912/15/2023 LITHO LINK CKD PROGR AM pdf . Not Available [facility] [place] & [address], [address], 12/15/2023 10:14:32 12/14/1912/15/2023 CARDI OVASC ULAR REPOR T interpretati on Note Suppl ement al repor t is avail able. Not Available [address], [address], 12/15/2023 10:14:32 12/14/1912/15/2023 CARDI OVASC ULAR REPOR T pdf Not applic able Not Available [facility] & [address], [address], 12/15/2023 10:14:32 12/14/1912/15/2023 CBC, PLATE LET, NO DIFFE RENTI AL WBC 9.1 x10e3 /uL 3.4-10 .8 Not Available [address], [address], 12/15/2023 10:14:33 12/14/1912/15/2023 CBC, PLATE LET, NO DIFFE RENTI AL RBC 4.14 x10e6 /uL 4.14-5 .80 Not Available [address], [address], 12/15/2023 10:14:33 12/14/1912/15/2023 CBC, PLATE LET, NO DIFFE RENTI AL hemoglobin 11.9 g/dL 13.0-1 7.7 below low normal Not Available [address], [address], 12/15/2023 10:14:33 12/14/1912/15/2023 CBC, PLATE LET, NO DIFFE RENTI AL hematocrit 37.6 % 37.5-5 1.0 Not Available [address], [address], 12/15/2023 10:14:33 12/14/1912/15/2023 CBC, PLATE LET, NO DIFFE RENTI AL MCV 91 fL 79-97 Not Available [address], [address], 12/15/2023 10:14:33 12/14/1912/15/2023 CBC, PLATE LET, NO DIFFE RENTI AL MCH 28.7 pg 26.6-3 3.0 Not Available [address], [address], 12/15/2023 10:14:33 12/14/1912/15/2023 CBC, PLATE LET, NO DIFFE RENTI AL MCHC 31.6 g/dL 31.5-3 5.7 Not Available [address], [address], 12/15/2023 10:14:33 12/14/1912/15/2023 CBC, PLATE LET, NO DIFFE RENTI AL RDW 14.0 % 11.6-1 5.4 Not Available [address], [address], 12/15/2023 10:14:33 12/14/1912/15/2023 CBC, PLATE LET, NO DIFFE RENTI AL platelets 256 x10e3 /uL 150-45 0 Not Available [facility] & [facility] [address] [facility], [place], [address], 12/15/2023 10:14:33 04/11/19 25 04/11/2024 Hemog lobin A1c/H emogl obin. total in Blood hemoglobin A1C, POC 7.6 % low: 4%high : 5.6% Hemog lobin A1C, POC 7.6 4.0 - 5.6 % Not Available Not Available 04/11/2024 13:22:43 05/13/19 23 05/12/2022 XR, knee No observ ation record ed. [facility] [address] [place], [address], 05/12/2022 17:14:05 05/13/19 23 05/12/2022 XR, knee No observ ation record ed. [facility] [address] [place], [address], 05/12/2022 17:14:05 02/12/20 24 02/12/2024 US, renal No observ ation record ed. [facility] [address] [place], [address], 02/12/2024 13:27:12 02/12/20 24 02/12/2024 [facility] [address] [place], [address], 03/14/2024 10:13:53 03/03/19 25 03/03/2024 [facility] pelvi s [facility] [address] [place], [address], 03/03/2024 16:20:04 Result Notes None recorded. Problems Name Problem SNOMED Code Status Onset Date Resolution Date Notes Provider Name and Address Organization Details Recorded Time Type 2 diabetes mellitus without complication 519297205 Active 2022 [facility] Available [facility] Problem Notes None recorded. Procedures Surgical History Date Name Laterality Status Provider Name and Address Organization Details Recorded Time 02/16/19 21 colonoscopy completed Lauryn Israel MA [facility] 10/05/2020 10:38:12 02/16/18 85 Cholecystectomy completed Lauryn Israel MA [facility] 10/05/2020 10:38:49 02/16/18 85 Appendectomy completed Lauryn Israel MA [facility] 10/05/2020 10:38:41 Imaging Results Imaging Date Name Status LastModified by Organiz ation Details LastModified Time 05/12/2022 XR, knee completed [facility] [address] [place], [address], 05/12/2022 17:14:05 05/12/2022 XR, knee completed [facility] [address] [place], [address], 05/12/2022 17:14:05 02/12/2024 US, renal completed [facility] [address] [place], [address], 02/12/2024 13:27:12 02/12/2024 US, renal completed [facility] [address] [place], [address], 03/14/2024 10:13:53 03/03/2024 US, pelvis completed [place] [address] [place], [address], 03/03/2024 16:20:04 Procedure Notes None recorded. Medical Equipment None Reported. Allergies Allergen ID Allergen Name Allergen Category Reaction Reaction Severity Criticality Documentation Date Start Date Code Code System Note Provider Name and Address Organization Details Recorded Time 043968 metformin medicatio n diarrhea Not available Not [...] sone 1 %-0.05 % topical cream APPLY TOPICALLY TO AFFECTED AREA(S) TWICE DAILY 2024 active Not Available Not Available Not Avai lable aspirin 81 mg chewable tablet Chew 1 [...] Available Not Av ailable Not Available vitamin Z73-dlucz acid active Not Available Not Available Not Available Januvia 100 mg tablet TAKE 1 TABLET BY MOUTH EVERY DAY 06/06 completed Not Available Not Available Not Available pen needle, diabetic 32 gauge x USE 1 PEN NEEDLE TO INJECT INSULIN ONCE DAILY active Not Available Not Available No t Available BD Insulin Syringe Ultra-Fine 0.5 mL 31 gauge x 16 active Not Available Not Available Not Available Soliqua 100/33 100 unit-33 mcg/mL subcutaneou s insulin pen INJECT 34 UNITS UNDER THE SKIN BREAKER LAYER BEFORE BREAKFAST E11.9 active Not Available Not Available No t Available OneTouch Ultra2 Meter active Not Available Not Available Not Available OneTouch Delica Plus Lancet 30 gauge active Not Available Not Available Not Available Vitals Date Recorded Body height Body mass index (BMI) Body weight Body temperature Oxygen saturation Oxygen saturation in Arterial blood by Pulse oximetry Heart rate Systolic blood pressure Diastolic blood pressure Provider Name and Address Organization Details Last Updated DateTime 3 160.02 cm 36.5 kg/m2 62141.0 3 g 97.8 [degF] 96 % 96 % 79 /min 130 mm[Hg] 66 mm[Hg] Alondra brown MA [facility] 3 10:49:42 Date Recorded Body height Body mass index (BMI) Body weight Oxygen saturation Oxygen saturation in Arterial blood by Pulse oximetry Heart rate Body temperature Systolic blood pressure Diastolic blood pressure Provider Name and Address Organization Details Last Updated DateTime 3 160.02 cm 37 kg/m2 81252.8 1 g 94 % 94 % 101 /min 98.2 [degF] 133 mm[Hg] 70 mm[Hg] Alondra brown MA [facility] 3 10:34:48 Date Recorded Body height Body mass index (BMI) Body weight Respiratory rate Oxygen saturation Oxygen saturation in Arterial blood by Pulse oximetry Heart rate Systolic blood pressure Diastolic blood pressure Provider Name and Address Organization Details Last Updated DateTime 3 160.02 cm 37 kg/m2 39802.8 1 g 18 /min 97 % 97 % 89 /min 135 mm[Hg] 70 mm[Hg] Joanne Mcdaniels MA [facility] 3 10:54:00 Date Recorded Body height Body mass index (BMI) Body weight Oxygen saturation Oxygen saturation in Arterial blood by Pulse oximetry Heart rate Respiratory rate Body temperature Systolic blood pressure Diastolic blood pressure Provider Name and Address Organization Details Last Updated DateTime 4 160.02 cm 36.5 kg/m2 71467.3 1 g 95 % 95 % 90 /min 18 /min 97.6 [degF] 118 mm[Hg] 72 mm[Hg] Kathi Small MA [facility] 4 12:00:21 Date Recorded Body height Body mass index (BMI) Body weight Heart rate Oxygen saturation Oxygen saturation in Arterial blood by Pulse oximetry Systolic blood pressure Diastolic blood pressure Provider Name and Address Organization Details Last Updated DateTime 4 160.02 cm 36.1 kg/m2 48502.8 4 g 61 /min 95 % 95 % 140 mm[Hg] 80 mm[Hg] Joanne Mcdaniels MA [facility] 4 15:01:37 Social History Question Answer Notes LastModified by Organizat ion Details LastModified Time Tobacco Smoking Status Former Smoker Quit 1971 Lauryn Israel MA [facility] 10/05/2020 10:37:15 What Is Your Level [...] Anxious, Or Unable To Sleep At Night)? [id number] Information not available 10/05/2020 Do You Use [...] Eating Disorder N Anemia N Heart Attack ([place]) N Diabetes N Anxiety Disorder N Muscle, [...] [place], [place] - [facility] 12/14/2023 15:25:07 Influenza, split [...] SNOMED-CT Code Diagnosis ICD10 Code Diagnosis Note [id number] [facility] [address] [place] [address] 10/05/2020 09:49:20 10/05/2020 11:56:07 Upper gastrointestinal bleeding 54237939 K92.89 Chronic di arrhea of unknown origin 32213549 K52.9 Type 2 ирина betes mellitus without complication 349332757 E11.9 [id number] Nadine Weston PA-C [facility] [address] [place] [address] 03/14/2021 17:32:33 03/14/2021 19:15:15 Type 2 diabetes mellitus without complication 927150373 E11.9 Uncontroll ed type 2 diabetes mellitus 610097467 E11.65 Obstructiv e sleep apnea syndrome 15414830 G47.33 [id number] Nadine Weston PA-C [facility] [address] [place] [address] 06/06/2021 10:28:35 06/06/2021 11:49:18 Adult health examination 559317652 Z00.00 Type 2 ирина betes mellitus without complication 608066050 E11.9 Anemia 309577632 D50.8 [id number] Lauryn Israel MA [facility] [address] [place] [address] 06/06/2021 10:35:22 06/06/2021 13:01:13 Administration of SARS-CoV-2 mRNA vaccine 5012141532 Z23 [id number] Nadine Weston PA-C [facility] [address] [place] [address] 01/30/2022 15:14:31 01/30/2022 16:06:40 Overweight 295762749 E66.3 Essential hypertension 94305729 I10 Mixed hyperlipidemia 267 905794 E78.2 Type 2 ирина betes mellitus without complication 714721542 E11.9 Anemia 201660570 D50.8 [id number] Nadine Weston PA-C [facility] [address] [place] [address] 03/21/2022 10:40:39 03/21/2022 11:24:24 Acute bronchitis with bronchospasm 75577739 J20.8 Overweight 663796305 E66 .3 [id number] Nadine Weston PA-C [facility] [address] [place] [address] 05/12/2022 10:24:39 05/13/2022 09:22:45 Pain of bilateral knee joints 2935933583 81581 M25.561 M25.562 Overweight 267159276 E66 .3 Anemia [id number] D64.89 [id number] Nadine Weston PA-C [facility] [address] [place] [address] 01/27/2023 10:45:44 01/29/2023 15:22:38 Acute bronchitis with bronchospasm [id number] J20.8 Overweight [id number] E66 .3 [id number] Nadine Weston PA-C [facility] [address] [place] [address] 04/23/2023 11:49:34 04/27/2023 16:19:04 Bilateral conjunctivitis [id number] H10.013 Type 2 ирина betes mellitus without complication [id number] E11.9 [id number] Nadine Weston PA-C [facility] [address] [place] [address] 12/14/2023 14:24:52 12/17/2023 09:44:01 Hyperkalemia 70145593 E87.5 Chronic ki dney disease stage 3 [id number] N18.31 Overweight [id number] E66 .3 Health Concerns Section Related Observation LastModified by Organization Detai ls LastModified Time None Recorded Concern Status LastModified by Organization Details LastModified Time None Recorded Advance Directives Directive None Recorded Payers Encounter Date Sequence Insurance Name Policy Number Policy Hendrickson Covered Member ID Hendrickson Member ID Guarantor Name 03/21/2022 1 [facility] (MEDICARE REPLACEMENT/A DVANTAGE - HMO) [id number] Ruben Callahan [id number] Ruben Callahan 05/12/2022 1 [facility] (MEDICARE REPLACEMENT/A DVANTAGE - HMO) [id number] Ruben Callahan [id number] Ruben Callahan 01/27/2023 1 [facility] (MEDICARE REPLACEMENT/A DVANTAGE - HMO) [id number] Ruben Callahan [id number] Ruben Callahan 04/23/2023 1 [facility] (MEDICARE REPLACEMENT/A DVANTAGE - HMO) [id number] Ruben Callahan [id number] Ruben Callahan 12/14/2023 1 [facility] (MEDICARE REPLACEMENT/A DVANTAGE - HMO) [id number] Ruben Callahan [id number] Ruben Callahan Notes Date Note Type Note [...] gel-like substance. Nadine Weston PA-C Attn: Accounting,[address] [place], [place], [address] [place] [address], [facility] 03/21/2022 11:18:10 05/12/2022 text/html annual check up...bilateral knee pain (R>L)...reports they give out on him ... Nadine Weston PA-C Attn: [address]ing,[address] [place], [place], [address] [place] [address], [facility] [place] 05/12/2022 11:36:30 01/27/2023 text/html has had a cougf for 3-4 months...cant shake it... Nadine Weston PA-C Attn: Accounting,[address] [place], [place], [address] [place] [address], [facility] 01/27/2023 11:08:42 04/23/2023 text/html went to [place] for dinner..son reports that the whites of his eyes were dark...after getting home the colored had lightened but still not normal... Nadine Weston PA-C Attn: Accounting,[address] [place], [address], [facility] [place] 04/23/2023 12:24:46 12/14/2023 text/html potassium has been going up...says kidney function is getting worse...creatine going up...has appt with dr hollingsworth in january...needs labs Nadine Weston PA-C Attn: Accounting,[address] [facility] [place], [place], [address], [place] [facility] 12/14/2023 15:32:59
[2024-05-05 10:43] LABS: Albumin Level 3.9 g/dL (3.4-5.0); Blood Urea Nitrogen 32 mg/dL (7-18); Calcium 9.1 mg/dL (8.5-10.1); Carbon Dioxide 25 mmol/L (21-32); Estimated Glomerular Filt Rate 34; Glucose 132 mg/dL (70-99); Iron 61 ug/dL (65-175); Percent Iron Saturation 18 % (12-57); Phosphorus 4.2 mg/dL (2.6-4.7)
[2024-05-05 11:17] LABS: Anion Gap 10 mmol/L (4-12); Chloride 104 mmol/L (98-108); Osmolality Calculated 296 mOsm/kg (285-295); Potassium 4.5 mmol/L (3.5-5.1); Sodium 139 mmol/L (136-145)
[2024-05-06 14:13] LABS: Parathyroid Intact 53 pg/mL (16-77)
[2024-05-07 01:33] LABS: Vitamin D 25 Hydroxy 45 ng/mL (30-100)
== END 2024-05-05 09:24 | disposition home or self-care (01) ==
LOC: CHSLAB 09:26
PROVIDERS: PCP Physician Assistant
DX: N18.32 Chronic kidney disease, stage 3b (principal)
CPT/HCPCS: 36415; 80069; 81001; 82306; 83540; 83550; 83970; 85027

== ENCOUNTER 2024-05-26 09:31 | Outpatient (CLI) | payer MEDICARE, SELFPAY ==
--- NOTE | ~2024-05-26 | MR_ITS ---
EXAMINATION: MR abdomen wo con DATE: 05/26/2024 10:38 INDICATION: Stage IIIB chronic kidney disease TECHNIQUE: Magnetic resonance imaging (MRI) of the abdomen was performed without intravenous contrast . Sequences included coronal T2-weighted SS-FSE, coronal and axial FS 2D-FIESTA, axial STIR FSE, axi al T2-weighted SS-FSE, axial T2-weighted FS SS-FSE, axial diffusion-weighted SE, axial dual-echo T1-w eighted FSPGR, and axial and coronal T1-weighted LAVA. COMPARISON: CT dated 03/04/2020 FINDINGS: Arch size is normal. No pericardial or pleural effusion. Subtle magnetic field artifact associated wi th cholecystectomy clips at the gallbladder fossa. Liver, spleen, pancreas and bilateral adrenal glan ds are normal. There is asymmetric mild right renal atrophy. No hydronephrosis. 5.4 cm simple appeari ng T2 hyperintense left renal cyst. 12 mm T2 hypointense, T1 hyperintense likely proteinaceous/hemorr hagic exophytic cyst also at the lower pole the left kidney. Smaller but similar-appearing subcentime ter simple and complex proteinaceous/hemorrhagic cysts at the right kidney. Moderate scattered divert iculosis without adjacent from positioning to suggest diverticulitis. No bowel obstruction. Air-fluid level within a 5.2 x 4.9 x 3.6 cm duodenal diverticulum arising from the third portion of the duoden um. No pathologically enlarged abdominal lymphadenopathy. Mild thoracolumbar dextrocurvature with sev ere spondylosis. No pathologic marrow replacing process. IMPRESSION: 1. Asymmetric mild right renal atrophy with bilateral simple and complex proteinaceous/hemorrhagic re nal cysts. Reviewed, dictated and finalized at location B. IMPRESSION: 1. Asymmetric mild right renal atrophy with bilateral simple and complex protei naceous/hemorrhagic renal cysts.
--- OUTSIDE RECORDS SUMMARY | 2024-05-26 09:56 | XMS_ITS | Clinical Summary ---
[facility] Address [address] [place] [address] Care Team Providers Care Director Marketing Name Role Phone Demetrio Weston Primary Care Provider [phone] Allergies Active Allergy Reactions Criticality Noted Date Comments Metformin Diarrhea Low 04/02/2021 Medications omeprazole (PriLOSEC) 40 mg capsule Take by mouth daily 08/30/2020 Active simvastatin (ZOCOR) 10 mg tablet Take 1 tablet (10 mg total) by mouth daily 08/30/2020 Active allopurinoL (ZYLOPRIM) 100 mg tablet Take 1 tablet (100 mg total) by mouth daily 08/30/2020 Active losartan (COZAAR) 100 mg tablet Take 1 tablet (100 mg total) by mouth daily 08/30/2020 Active cyanocobalamin/ folic acid (vitamin R90-cljqn acid) 1,000-400 mcg lozenge Take 1 capsule by mouth daily Active OneTouch Ultra Test strip 03/13/2021 Active OneTouch Ultra2 Meter misc 03/13/2021 Active OneTouch Delica Plus Lancet [facility] gauge [facility] 03/13/2021 Active aspirin 81 mg chewable tablet Chew 1 tablet every day by oral route. Active calcium carbonate-vitam in D3 1,500 mg (600 mg elemental)-1,00 0 unit capsule Take 1,000 Units by mouth Active pen needle, diabetic 32 gauge x 5/32 needle Use to inject insulin daily. E11.65 patient want Relion needles. Will be brenner pay. 400 each 1 04/11/2024 Active Soliqua 100/33 100 unit-33 mcg/mL insulin penIndications: type 2 diabetes mellitus Inject 42 Units under the skin daily E11.65 45 mL 4 04/11/2024 Active Active Problems Problem Noted Date Diagnosed Date Personal history of colonic polyps 05/14/2023 Encounter for screening colonoscopy 05/14/2023 freestyle nae 2 continuous glucose monitoring device 07/31/2022 Assessment & Plan (04/11/2024 9:41 AM MAIN ENTREE COOK AND CASHIER): Continuous glucose monitor (cgm) applied from 03/29/2024 [...] ranges Assessment & Plan (01/30/2023 9:35 AM MAIN ENTREE COOK AND CASHIER): Continuous glucose monitor (cgm) applied from 01/17/2023 [...] prescribed. Assessment & Plan (01/31/2021 12:17 AM MAIN ENTREE COOK AND CASHIER): Losartan resumed with hold parameters Dyslipidemia associated [...] prescribed. Assessment & Plan (01/30/2023 9:31 AM MAIN ENTREE COOK AND CASHIER): This is a chronic condition which is [...] prescribed. Assessment & Plan (04/02/2021 6:12 PM MAIN ENTREE COOK AND CASHIER): This is a chronic condition Goal is less than 70. Continue simvastatin. Encouraged to eat healthy, include fresh fruits and vegetables daily and avoid eating fried foods more than once per week. Encouraged to take medications as prescribed. Assessment & Plan (01/31/2021 12:17 AM MAIN ENTREE COOK AND CASHIER): Continue statin Normocytic anemia 01/31/2021 Assessment & Plan (01/31/2021 12:18 AM MAIN ENTREE COOK AND CASHIER): Hemoglobin decreased from 12.4-10.6. Will continue to monitor. Patient okay with transfusion if needed. Lactic acidosis 01/31/2021 Assessment & Plan (01/31/2021 12:18 AM MAIN ENTREE COOK AND CASHIER): Likely secondary to GI bleed. Continue IV fluids. Anorectal hemorrhage 01/30/2021 Assessment & Plan (01/31/2021 12:17 AM MAIN ENTREE COOK AND CASHIER): Patient seen by GI. Continue Cipro and [...] simvastatin Assessment & Plan (01/30/2023 9:35 AM MAIN ENTREE COOK AND CASHIER): This is a chronic condition which is [...] No history of macrovascular disease - CVA, [place]. Freestyle Nae 2 continuous glucose monitor applied from 04/18/2022 to 05/01/2022 This device was placed for monitor and treatment of blood sugar. Interpretation of data- In target 63% of the time with soliqua 22-24 units daily without hypoglycemia. Assessment & Plan (12/30/2021 9:27 AM MAIN ENTREE COOK AND CASHIER): This is a chronic condition which is [...] No history of macrovascular disease - CVA, [place]. Freestyle Nae 2 continuous glucose monitor applied [...] No history of macrovascular disease - CVA, [place]. Freestyle Nae 2 continuous glucose monitor applied [...] No history of macrovascular disease - CVA, [place]. Freestyle Nae 2 continuous glucose monitor applied [...] hypoglycemia. Assessment & Plan (04/02/2021 6:11 PM MAIN ENTREE COOK AND CASHIER): This is a chronic condition which is [...] No history of macrovascular disease - CVA, [place]. Assessment & Plan (01/31/2021 12:17 AM MAIN ENTREE COOK AND CASHIER): Sugars elevated on presentation. Currently improved. Continue [...] cancer 12/30/2016 Overview (01/30/2021): Clinical stage IIA ([id number] [place] 3 + 4 histology and PSA [...] trees Assessment & Plan (01/30/2023 9:33 AM MAIN ENTREE COOK AND CASHIER): This is a chronic condition which continues [...] active He is working still as a [employer] Data Encounters Date Type Department Care Team Description 04/11/2024 9:30 AM MAIN ENTREE COOK AND CASHIER Office Visit [facility] Medical Group Diabetes Endocrine Care at [address] [phone] Mary Jo Atkinson, PRETTY Type 2 diabetes [...] on file Legal Sex Male 1:50 AM MAIN ENTREE COOK AND CASHIER Gender Identity Not on file Sexual Orientation Not on file Obstetrics History Last Filed Vital Signs Vital Sign Reading Time Taken Comments Blood Pressure 112/50 04/11/2024 9:31 AM MAIN ENTREE COOK AND CASHIER Pulse 59 01/22/2024 11:43 AM MAIN ENTREE COOK AND CASHIER Temperature 37.1 C (98.8 F) 01/22/2024 11:43 AM MAIN ENTREE COOK AND CASHIER Respiratory Rate 16 01/22/2024 11:43 AM MAIN ENTREE COOK AND CASHIER Oxygen Saturation 99% 01/22/2024 11:43 AM MAIN ENTREE COOK AND CASHIER Inhaled Oxygen Concentration - - Weight 93 kg (205 lb 1.6 oz) 04/11/2024 9:31 AM MAIN ENTREE COOK AND CASHIER Height 157.5 cm (5' 2 ) 04/11/2024 9:31 AM MAIN ENTREE COOK AND CASHIER Body Mass Index 37.51 04/11/2024 9:31 AM MAIN ENTREE COOK AND CASHIER Plan of Treatment Health Maintenance Due Date Last Done Comments Depression Screening 1940 Hepatitis B Screening 04/22/1958 Well Visit 65+ 2006 Zoster Vaccine (2 of 3) 12/03/2012 10/08/2012 Dilated Eye Exam 05/17/2022 05/17/2021 Covid-19 Vaccine (2023-03 5 season) 2023 01/06/2022, 06/06/2021, 12/13/2020, Additional [...] HEMOGLOBIN A1C Routine 04/11/2024 9 :39 AM MAIN ENTREE COOK AND CASHIER Type 2 diabetes mellitus with hyperglycemia, with long-term current use of insulin (HCC) POCT GLUCOSE Routine 04/11/2024 9:32 AM MAIN ENTREE COOK AND CASHIER Type 2 diabetes mellitus with hyperglycemia, with long-term current use of insulin (HCC) EGFR Routine 12/07/2023 11:26 AM CDT Type 2 diabetes mellitus with hyperglycemia, with long-term current use of insulin (HCC) LIPID PANEL Routine 12/07/2023 11:26 AM CDT Type 2 diabetes mellitus with hyperglycemia, with long-term current use of insulin ([facility]) ALBUMIN CREATININE RATIO, URINE Routine 12/07/2023 11:26 AM CDT Type 2 diabetes mellitus with hyperglycemia, with long-term current use of insulin ([facility]) DIABETIC EYE EXAM Routine 05/17/2021 from Last 3 Months or Most Recently Relevant to Health Maintenance Results * POCT hemoglobin A1c (04/11/2024 9:39 AM MAIN ENTREE COOK AND CASHIER) Pathologist [facility] Hemoglobin A1C, POC 7.6 4.0 - 5.6 % Blood 04/11/2024 9:39 AM MAIN ENTREE COOK AND CASHIER us Mary Jo Atkinson NP POINT OF CARE TEST ORDERABLES F inal Result * POCT glucose (04/11/2024 9:32 AM MAIN ENTREE COOK AND CASHIER) [facility] Glucose Blood, POC 164 mg/dL Blood 04/11/2024 9:32 AM MAIN ENTREE COOK AND CASHIER us Mary Jo Atkinson NP POINT OF CARE TEST ORDERABLES F inal Result * (ABNORMAL) eGFR (12/07/2023 11:26 AM CDT) Pathologist [facility] eGFR 33(L) >=60 mL/min/1. 73 m2 Comment: [...] NP LAB BLOOD ORDERABLES Final Resu lt Performing Organization Address City/[facility]/ZIP Co de Phone Number LINNE[place]RISS [address] [place] [address] * (ABNORMAL) Albumin Creatinine Ratio, Urine (12/07/2023 11:26 AM CDT) Albumin Ur 80.8 mg/L Comment: Interpretive Data No reference range established. Current interpretive data was last revised 2018. Creatinine Ur 115.2 mg/dL [facility] Comment: Interpretive Data No reference range established. Current interpretive data was last revised 2018. Albumin Creatinine Ratio, Ur 70(H) 1 - 29 mg/g [facility] Urine 12/07/2023 11:2 6 AM CDT 12/07/2023 7:18 PM CDT Mary Jo Atkinson NP LAB URINE ORDERABLES Final Resu lt Performing Organization Address City/[facility]/ZIP Co de Phone Number [facility] [address] [employer] [place], [place] [id number] * (ABNORMAL) Lipid panel (12/07/2023 11:26 AM [...] on 2017. Triglycerides 244(H) <=149 mg/dL [facility] Comment: Interpretive Data Ages < [...] on 2017. HDL 35(L) >=40 mg/dL [facility] Comment: Interpretive Data Ages < [...] BLOOD ORDERABLES Final Resu lt [facility] Department [place] [address] * Diabetic Eye Exam (05/17/2021) Historical Provider MD HEALTH MAINTENANCE Final Result from Last 3 Months or Most Recently Relevant to Health Maintenance Insurance [facility] MEDICARE ADVANTAGE Advance Directives For more information, please contact: [phone] * Full Code (Latest Code Status on File) Date Activated Date Inactivated Comments 01/22/2024 8:59 AM 01/22/2024 4:07 PM * Full Code Date Activated Date Inactivated Comments 01/22/2024 8:59 AM 01/22/2024 8:59 AM * Full Code Date Activated Date Inactivated Comments 01/30/2021 8:31 AM 02/01/2021 9:56 PM Care Teams Director Marketing Relationship Specialty Start Date End Date Demetrio Weston PA [address] [place] [address] PCP - General Family Practice 10/05/20
--- OUTSIDE RECORDS SUMMARY | 2024-05-26 09:56 | XMS_ITS | Referral Summary ---
Author Organization [facility] Address [address] [place] [address] Care Team Providers Care Medical Sales Consultant Name Role Phone Demetrio Weston Primary Care Provider [phone] Encounters Date Type Department Care Team Description 04/11/2024 9:30 AM MEMBER SERVICES COORDINATOR Office Visit [facility] Medical Group Diabetes Endocrine Care at [address] [phone] Mary Jo Atkinson, PRETTY Type 2 diabetes [...] daily 08/30/2020 Active cyanocobalamin/ folic acid (vitamin N80-ovypi acid) 1,000-400 mcg lozenge Take 1 capsule by mouth daily Active OneTouch Ultra Test strip 03/13/2021 Active [facility] Ultra2 [facility] 03/13/2021 Active OneTouch Delica Plus Lancet 30 gauge [facility] 03/13/2021 Active aspirin 81 mg chewable tablet [...] 07/31/2022 Assessment & Plan (04/11/2024 9:41 AM MEMBER SERVICES COORDINATOR): Continuous glucose monitor (cgm) applied from 03/29/2024 [...] ranges Assessment & Plan (01/30/2023 9:35 AM MEMBER SERVICES COORDINATOR): Continuous glucose monitor (cgm) applied from 01/17/2023 [...] prescribed. Assessment & Plan (01/31/2021 12:17 AM MEMBER SERVICES COORDINATOR): Losartan resumed with hold parameters Dyslipidemia associated [...] prescribed. Assessment & Plan (01/30/2023 9:31 AM MEMBER SERVICES COORDINATOR): This is a chronic condition which is [...] prescribed. Assessment & Plan (04/02/2021 6:12 PM MEMBER SERVICES COORDINATOR): This is a chronic condition Goal is less than 70. Continue simvastatin. Encouraged to eat healthy, include fresh fruits and vegetables daily and avoid eating fried foods more than once per week. Encouraged to take medications as prescribed. Assessment & Plan (01/31/2021 12:17 AM MEMBER SERVICES COORDINATOR): Continue statin Normocytic anemia 01/31/2021 Assessment & Plan (01/31/2021 12:18 AM MEMBER SERVICES COORDINATOR): Hemoglobin decreased from 12.4-10.6. Will continue to monitor. Patient okay with transfusion if needed. Lactic acidosis 01/31/2021 Assessment & Plan (01/31/2021 12:18 AM MEMBER SERVICES COORDINATOR): Likely secondary to GI bleed. Continue IV fluids. Anorectal hemorrhage 01/30/2021 Assessment & Plan (01/31/2021 12:17 AM MEMBER SERVICES COORDINATOR): Patient seen by GI. Continue Cipro and [...] simvastatin Assessment & Plan (01/30/2023 9:35 AM MEMBER SERVICES COORDINATOR): This is a chronic condition which is [...] No history of macrovascular disease - CVA, [place]. Freestyle Nae 2 continuous glucose monitor applied from 04/18/2022 to 05/01/2022 This device was placed for monitor and treatment of blood sugar. Interpretation of data- In target 63% of the time with soliqua 22-24 units daily without hypoglycemia. Assessment & Plan (12/30/2021 9:27 AM MEMBER SERVICES COORDINATOR): This is a chronic condition which is [...] No history of macrovascular disease - CVA, [place]. Freestyle Nae 2 continuous glucose monitor applied [...] No history of macrovascular disease - CVA, [place]. Freestyle Nae 2 continuous glucose monitor applied [...] No history of macrovascular disease - CVA, [place]. Freestyle Nae 2 continuous glucose monitor applied [...] hypoglycemia. Assessment & Plan (04/02/2021 6:11 PM MEMBER SERVICES COORDINATOR): This is a chronic condition which is [...] No history of macrovascular disease - CVA, [place]. Assessment & Plan (01/31/2021 12:17 AM MEMBER SERVICES COORDINATOR): Sugars elevated on presentation. Currently improved. Continue [...] cancer 12/30/2016 Overview (01/30/2021): Clinical stage IIA ([id number] [place] 3 + 4 histology and PSA 10.32) [...] trees Assessment & Plan (01/30/2023 9:33 AM MEMBER SERVICES COORDINATOR): This is a chronic condition which continues [...] active He is working still as a [employer] Immunizations Immunization Administration Dates Next Due Influenza, [...] on file Legal Sex Male 1:50 AM MEMBER SERVICES COORDINATOR Gender Identity Not on file Sexual Orientation Not on file Last Filed Vital Signs Vital Sign Reading Time Taken Comments Blood Pressure 112/50 04/11/2024 9:31 AM MEMBER SERVICES COORDINATOR Pulse 59 01/22/2024 11:43 AM MEMBER SERVICES COORDINATOR Temperature 37.1 C (98.8 F) 01/22/2024 11:43 AM MEMBER SERVICES COORDINATOR Respiratory Rate 16 01/22/2024 11:43 AM MEMBER SERVICES COORDINATOR Oxygen Saturation 99% 01/22/2024 11:43 AM MEMBER SERVICES COORDINATOR Inhaled Oxygen Concentration - - Weight 93 kg (205 lb 1.6 oz) 04/11/2024 9:31 AM MEMBER SERVICES COORDINATOR Height 157.5 cm (5' 2 ) 04/11/2024 9:31 AM MEMBER SERVICES COORDINATOR Body Mass Index 37.51 04/11/2024 9:31 AM MEMBER SERVICES COORDINATOR Plan of Treatment Not on file Procedures Procedure Name Priority Date/Time Associated Diagnosis Comments POCT HEMOGLOBIN A1C Routine 04/11/2024 9 :39 AM MEMBER SERVICES COORDINATOR Type 2 diabetes mellitus with hyperglycemia, with long-term current use of insulin ([facility]) POCT GLUCOSE Routine 04/11/2024 9:32 AM MEMBER SERVICES COORDINATOR Type 2 diabetes mellitus with hyperglycemia, with long-term current use of insulin ([facility]) EGFR Routine 12/07/2023 11:26 AM CDT Type 2 diabetes mellitus with hyperglycemia, with long-term current use of insulin ([facility]) LIPID PANEL Routine 12/07/2023 11:26 AM CDT Type 2 diabetes mellitus with hyperglycemia, with long-term current use of insulin ([facility]) ALBUMIN CREATININE RATIO, URINE Routine 12/07/2023 11:26 AM CDT Type 2 diabetes mellitus with hyperglycemia, with long-term current use of insulin ([facility]) DIABETIC EYE EXAM Routine 05/17/2021 from Last 3 Months or Most Recently Relevant to Health Maintenance Results * POCT hemoglobin A1c (04/11/2024 9:39 AM MEMBER SERVICES COORDINATOR) Hemoglobin A1C, POC 7.6 4.0 - 5.6 % Blood 04/11/2024 9:39 AM MEMBER SERVICES COORDINATOR us Mary Jo Atkinson NP POINT OF CARE TEST ORDERABLES F inal Result * POCT glucose (04/11/2024 9:32 AM MEMBER SERVICES COORDINATOR) Glucose Blood, POC 164 mg/dL Blood 04/11/2024 9:32 AM MEMBER SERVICES COORDINATOR us Mary Jo Atkinson NP POINT OF [...] ORDERABLES Final Resu lt Performing Organization Address [facility] Phone Number [facility] [address] Department [place] [address] * (ABNORMAL) Albumin Creatinine Ratio, [...] LAB URINE ORDERABLES Final Resu lt [facility] [address] Department [place] [address] * (ABNORMAL) Lipid panel (12/07/2023 11:26 AM [...] LAB BLOOD ORDERABLES Final Resu lt [facility] [address] Department [place] [address] * Diabetic Eye Exam (05/17/2021) us Historical Provider HEALTH MAINTENANCE Final Result from Last 3 Months or Most Recently Relevant to Health Maintenance Insurance [facility] MEDICARE ADVANTAGE [facility] Address: [address] [address] Advance Directives For more information, please contact: [phone] * Full Code (Latest Code Status on File) Date Activated Date Inactivated Comments 01/22/2024 8:59 AM 01/22/2024 4:07 PM * Full Code Date Activated Date Inactivated Comments 01/22/2024 8:59 AM 01/22/2024 8:59 AM * Full Code Date Activated Date Inactivated Comments 01/30/2021 8:31 AM 02/01/2021 9:56 PM Care Teams Medical Sales Consultant Relationship Specialty Start Date End Date Demetrio Weston PA [address] [place] [address] PCP - General Family Practice 10/05/20
--- OUTSIDE RECORDS SUMMARY | 2024-05-26 09:56 | XMS_ITS | Clinical Summary ---
Author Organization [facility] Address [address] [place] [address] Care Team Providers Care Technologies Division Chair Name Role Phone Blake Nixon MD Primary [...] on file Legal Sex Male 9:42 PM LAUNDRY AID Gender Identity Not on file Sexual Orientation Not on file Last Filed Vital Signs Vital Sign Reading Time Taken Comments Blood Pressure 143/64 03/06/2020 3:56 AM LAUNDRY AID Pulse 65 03/06/2020 3:56 AM LAUNDRY AID Temperature 36.3 C (97.3 F) 03/06/2020 3:56 AM LAUNDRY AID Respiratory Rate 18 03/06/2020 3:56 AM LAUNDRY AID Oxygen Saturation 97% 03/06/2020 3:56 AM LAUNDRY AID Inhaled Oxygen Concentration - - Weight 98.1 kg (216 lb 4.3 oz) 03/04/2020 9:00 P M LAUNDRY AID Height 165.1 cm (5' 5 ) 03/04/2020 9:11 AM LAUNDRY AID Body Mass Index 35.99 03/04/2020 9:11 AM LAUNDRY AID Plan of Treatment Health Maintenance Due Date Last Done Comments DTaP, Tdap and Td Vaccines ( 1 - Tdap) 1959 Annual Medicare Wellness Visit 2006 Pneumococcal Vaccine: 65+ Ye ars (1 of 1 - PCV) 2006 Zoster Vaccines (2 of 3) 12/03/2012 10/08/2012 RSV Immunization or 60+ Years (1 - 1-dose 75+ series) 2016 COVID-19 Vaccine (2023-2 5 season) 2023 Meningococcal B Vaccine Aged Out No [...] 9:06 AM 03/06/2020 2:54 PM Care Teams Technologies Division Chair Relationship Specialty Start Date End Date Blake Nixon MD [address] [place] [phone] PCP - General FAMILY PRACTICE 07/15/18
--- OUTSIDE RECORDS SUMMARY | 2024-05-26 09:56 | XMS_ITS | Encounter Summary ---
Author Organization [facility] Address [facility]ly [facility] [place] [address] Care Team Providers Care Control Panel Operator Name Role Phone Blake Nixon MD Primary Care Provider Encounter Details Date Type Department Care Team (Late st Contact Info) Description 05/02/2017 Abstract [facility] CONVERSION [address] [place] [address] , Generic ConversionMD Social History Tobacco Use Types Packs/Day Years Used Date Smoking Tobacco: Never Assessed Sex and Gender Information Value Date Recorded Sex Assigned at Not on file Legal Sex Male 9:42 PM FORMULATION SCIENTIST Gender Identity Not on file Sexual Orientation Not on file documented as of this encounter Plan of Treatment Not on file documented as of this encounter Visit Diagnoses Not on filedocumented in this encounter Additional Health Concerns Infection Onset Date Last Indicated Resolved Time 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
--- OUTSIDE RECORDS SUMMARY | 2024-05-26 09:57 | XMS_ITS | Clinical Summary ---
Author Organization [facility] Facility Address [address] [place] [id number] Care Team Providers Care Transfer Table Operator Name Role Phone Demetrio Weston Primary Care Provider [phone] Allergies Active Allergy Reactions Criticality Noted Date Comments Metformin 02/01/2024 Medications allopurinol (ZYLOPRIM) 100 MG tablet Take 1 tablet by mouth 1 (one) time each day Active clotrimazole-bet amethasone (LOTRISONE) cream Apply 90 application. topically in the morning and 90 application. in the evening. Active Soliqua 100-33 UNT-MCG/ML solution pen-injector Inject 100 mcg under the skin 1 (one) time each day 42 units per day 4 Active losartan (COZAAR) 100 MG tablet Take 1 tablet by mouth 1 (one) time each day Active omeprazole (PriLOSEC) [address] capsule Take 1 capsule by mouth 1 (one) time each day 9 Active simvastatin (ZOCOR) 10 MG tablet Take 1 tablet by mouth 1 (one) time each day Active Calcium Carb-Cholecalcif mart 600-25 MG-MCG capsule Take 1,000 Units by mouth 1 (one) time each day 05/20/19 25 Discontin ued(Med List Maintenan ce) Cobalamin Combinations (B-12) 100-5000 MCG sublingual tablet Take 1 capsule by mouth in the morning. 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 Office Visit [facility] [address] [place] [phone] Felipe Mclaughlin MD Chronic kidney disease stage 3B (HCC) (Primary Dx) 04/01/2024 Office Communication [facility] [address] [phone] Gwendolyn Nicole MA 04/01/2024 Office Communication [facility] [address] [place] [phone] Gwendolyn Nicole MA 03/25/2024 Documentation Only [facility], [facility] [address] [place] [phone] Felipe Mclaughlin MD 03/21/2024 Documentation Only [facility] [address] [address] Felipe Mclaughlin MD 03/18/2024 Documentation Only [facility], [address] [address] Felipe Mclaughlin MD from Last [...] Sign Reading Time Taken Comments Blood Pressure 122/62 05/19/2024 11:11 AM CDT Pulse 85 05/19/2024 11:11 AM CDT Temperature 36.1 C (97 F) 05/19/2024 11:11 AM CDT Respiratory Rate 16 05/19/2024 11:11 AM CDT Oxygen Saturation 95% 05/19/2024 11:11 AM CDT Inhaled Oxygen Concentration - - Weight 92.5 kg (204 lb) 05/19/2024 11:11 AM CDT Height 157.5 cm (5' 2 ) 02/01/2024 3:18 PM HARDWARE SALES ASSISTANT Body Mass Index 37.31 02/01/2024 3:18 PM HARDWARE SALES ASSISTANT Plan of Treatment Upcoming Encounters Date Type Department Care Team (Late st Contact Info) Description 11/18/2024 11:00 AM CDT Office Visit [facility], [facility] [address] [facility] [address] [place] [address] Felipe Mclaughlin MD 2 [facility] [address] [place] [address] Health Maintenance Due Date Last Done Comments Diabetes: Ophthalmology Exam 12/09/2023 Diabetes: Pedal Pulse Checked 12/09/2023 Diabetes: Sensory Foot Exam 12/09/2023 Diabetes: Visual Foot Exam 12/09/2023 Diabetes: Hemoglobin A1C 07/09/202404/11/2 025, 12/07/2023, 03/16/2021 Influenza Vaccine (Season Ended) 2024 11/22/2022, 12/13/2020, 12/08/2019, Additional history exists Pneumococcal Vaccine: 50+ Years Completed 12/07/2020, 2017, 12/03/2016, Additional history exists Hepatitis B Vaccine Aged Out No longe r eligible based on patient's age to complete this topic Procedures Procedure Name Priority Date/Time Associated Diagnosis Comments EXT RESULT ENTRY Routine 05/05/2024 EXT RESULT ENTRY Routine 03/17/2024 from Last 3 Months Results * (ABNORMAL) EXT RESULT ENTRY (05/05/2024) Only the most recent of2 resultswithin the time period is included. WBC 9.0 3.3 - 10.0 10*3/ML Red Blood Cell Count 4.43 Hemoglobin 12.7 13.5 - 17.5 Hematocrit 38.8 41.0 - 53.0 Platelets 269 150 - 399 10*3/UL MCV 87.6 82.0 - 108.0 Iron 61 UG/DL Iron Saturation (TSat) 18 % TIBC 339 ug/dL Sodium 139 137 - 147 Potassium 4.5 3.4 - 5.5 Chloride 104.0 99.0 - 108.0 Carbon Dioxide 25 mmol/L Anion Gap 10 <=30 MMOL/L Glucose 132 60 - 200 BUN 32 4 - 21 mg/dL Creatinine 1.89 0.60 - 1.30 mg/dL Albumin 3.9 3.5 - 5.0 g/dL Calcium 9.1 8.7 - 10.7 mg/dL Phosphorus, Serum 4.2 eGFR Non-Afr [place] 34 Vitamin D, 25-Hydroxy 45 ng/mL MCH 28.7 MCHC 32.7 RDW-CV 14.2 MPV 9.5 Color Urine yellow Appearance Urine clear PH Urine 6.0 Specific [place] 1.025 Protein, Ur trace Glucose Urine, Ql negative Ketones, Urine negative Blood, Urine negative Nitrite Urine negative Bilirubin, Urine negative Urobilinogen Urine 0.2 Normal, 0.2 mg/dL WBC, UA negative RBC, Urine 0-2 WBC, Urine 0-3 Bacteria, Urine trace 05/05/2024 us Historical Provider LAB BLOOD ORDERABLES Anjali l Result from Last 3 Months Insurance Advance Directives Documents on File Type Date Recorded Patient Fisher [employer] Net Expl anation Advance Care Planning 03/10/2024 2:25 PM Care Teams Transfer Table Operator Relationship Specialty Start Date End Date Demetrio Weston PA [address] [place] [address] PCP - General Internal Medicine 12/09/23
--- OUTSIDE RECORDS SUMMARY | 2024-05-26 09:57 | XMS_ITS | Data Portability ---
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 Plan of Treatment Reminders Order Date Submit Date Provider Last Modified By Organization Details Last Modified Time Details Appointments None recorded. Lab CBC 2023 024 [facility], [address] [place] [address] [place], [place], [address], 10:14:33 CMP, serum or plasma 2023 024 [facility], [address] [place] [address], [address], 4 10:14:30 lipid panel, serum 2023 024 [facility], [address] [place] [address] [place], [address], 10:14:29 CBC 2023 024 [facility], [address] [facility], [facility], [place], [address], 4 10:16:25 CMP, serum or plasma 2023 024 [facility], [address] [facility], [facility], [place], [address], 4 10:16:23 lipid panel, serum 2023 024 [facility], [address] [facility], [facility], [place], [address], 4 10:16:23 HbA1c (hemoglobin A1c), blood 2023 024 LYNETTE In-Office Order, Internal Use Only DO Not Attach Compendium DO Not Attach Compendium, Do Not Delete/merge, [id number] 4 12:59:48 CBC 2022 023 [facility], [address] [facility], [facility], [place], [address], 3 19:08:57 Referral None recorded. Procedures None recorded. Surgeries None recorded. Imaging XR, knee [address] [facility], [address] [facility], [place], [address], 3 09:22:45 Medication Orders azithromyci n 500 mg tablet 2022 023 LYNETTE [facility], [address] [place] [address], [address], [place], [place], [id number], 4 14:58:27 benzonatate 200 mg capsule 2022 023 LYNETTE [facility], [address] [place] [address], [address], [place], [place], [id number], 4 14:58:28 Patient TargetsNo targets recorded. Patient Instructions Encounter Date Encounter Id Patient Instructions Last Modified By Organization Details Last Modified Time 05/12/2022 [id number] A healthy lifestyle: care instructions jnanney Not available 05/12/2022 11:35:03 anemia: care instructions jnanney Not available 05/12/2022 11:35:03 01/27/2023 [id number] A healthy lifestyle: care instructions jnanney Not available 01/27/2023 11:08:05 04/23/2023 [id number] type 2 diabetes: care instructions jnanney Not available 04/23/2023 12:22:42 12/14/2023 [id number] A healthy lifestyle: care instructions jnanney Not available 12/14/2023 15:31:41 medicines to avoid with kidney disease: care instructions jnanney Not available 12/14/2023 15:31:41 hyperkalemia: care instructions jnanney Not available 12/14/2023 15:31:41 05/16/2024 [id number] A healthy lifestyle: care instructions jnanney Not available 05/16/2024 10:52:06 type 2 diabetes: care instructions jnanney Not available 05/16/2024 10:52:06 Reason for Referral None Reported. Results Created Date Observation Date Name Description Value Unit Range Abnormal Flag Note LastModifiedBy Organization Detail LastModifiedTime 05/13/1905/13/2022 CBC, PLATE LET, NO DIFFE RENTI AL WBC 10.4 K/uL 3.4-10 .8 Not Available [facility] [address] [place], [address], 05/13/2022 19:08:57 05/13/19 23 05/13/2022 CBC, PLATE LET, NO DIFFE RENTI AL RBC 4.4 M/uL 4.5-6. 3 below low normal Not Available [facility] [address] [place], [address], 05/13/2022 19:08:57 05/13/19 23 05/13/2022 CBC, PLATE LET, NO DIFFE RENTI AL hemoglobin 12.7 g/dL 13.5-1 7.5 below low normal Not Available [facility] [address] [place], [address], 05/13/2022 19:08:57 05/13/19 23 05/13/2022 CBC, PLATE LET, NO DIFFE RENTI AL hematocrit 39.1 % 40.0-5 2.0 below low normal Not Available [facility] [address] [place], [address], 05/13/2022 19:08:57 05/13/19 23 05/13/2022 CBC, PLATE LET, NO DIFFE RENTI AL MCV 89 fL 80-95 Not Available [facility] [address] [place], [address], 05/13/2022 19:08:57 05/13/19 23 05/13/2022 CBC, PLATE LET, NO DIFFE RENTI AL MCH 29 pg 27-32 Not Available [facility] [address] [place], [address], 05/13/2022 19:08:57 05/13/19 23 05/13/2022 CBC, PLATE LET, NO DIFFE RENTI AL MCHC 33 g/dL 32-36 Not Available [facility] [address] [place], [address], 05/13/2022 19:08:57 05/13/19 23 05/13/2022 CBC, PLATE LET, NO DIFFE RENTI AL RDW 14.4 % 11.5-1 4.5 Not Available [facility] [address] [place], [address], 05/13/2022 19:08:57 05/13/19 23 05/13/2022 CBC, PLATE LET, NO DIFFE RENTI AL platelets 270 K/uL 155-37 9 MPV 10.6 FL 8.9-1 2.7 N Not Available [facility] [address] [place], [address], 05/13/2022 19:08:57 05/13/19 23 05/13/2022 CBC, PLATE LET, NO DIFFE RENTI AL NRBC 0 % Not Available [facility] [address] [place], [address], 05/13/2022 19:08:57 04/23/19 24 04/24/2023 LIPID PANEL cholesterol, total 144 mg/dL 100-19 9 Not Available [facility] [address] [place] [address], [address], 04/24/2023 10:16:23 04/23/19 24 04/24/2023 LIPID PANEL triglyceride s 329 mg/dL 0-149 above high normal Not Available [address], [address], 04/24/2023 10:16:23 04/23/19 24 04/24/2023 LIPID PANEL HDL cholesterol 31 mg/dL >39 below low normal Not Available [address], [address], 04/24/2023 10:16:23 04/23/19 24 04/24/2023 LIPID PANEL VLDL cholesterol joel 52 mg/dL 5-40 above high normal Not Available [address], [address], 04/24/2023 10:16:23 04/23/19 24 04/24/2023 LIPID PANEL LDL chol calc (nih) 61 mg/dL 0-99 Not Available [address], [address], 04/24/2023 10:16:23 04/23/19 24 04/24/2023 COMP. METAB OLIC PANEL (14) glucose 189 mg/dL 70-99 above high normal Not Available [address], [address], 04/24/2023 10:16:23 04/23/19 24 04/24/2023 COMP. METAB OLIC PANEL (14) BUN 26 mg/dL 8-27 Not Available [address], [address], 04/24/2023 10:16:23 04/23/19 24 04/24/2023 COMP. METAB OLIC PANEL (14) creatinine 1.54 mg/dL 0.76-1 .27 above high normal Not Available [address], [address], 04/24/2023 10:16:23 04/23/19 24 04/24/2023 COMP. METAB OLIC PANEL (14) eGFR 45 mL/mi n/1.7 3 >59 below low normal Not Available [address], [address], 04/24/2023 10:16:23 04/23/19 24 04/24/2023 COMP. METAB OLIC PANEL (14) BUN/creatini ne ratio 17 10-24 Not Available [address], [address], 04/24/2023 10:16:23 04/23/19 24 04/24/2023 COMP. METAB OLIC PANEL (14) sodium 138 mmol/ L 134-14 4 Not Available [address], [address], 04/24/2023 10:16:23 04/23/19 24 04/24/2023 COMP. METAB OLIC PANEL (14) potassium 4.7 mmol/ L 3.5-5. 2 Not Available [address], [address], 04/24/2023 10:16:23 04/23/19 24 04/24/2023 COMP. METAB OLIC PANEL (14) chloride 102 mmol/ L 96-106 Not Available [address], [address], 04/24/2023 10:16:23 04/23/19 24 04/24/2023 COMP. METAB OLIC PANEL (14) carbon dioxide, total 19 mmol/ L 20-29 below low normal Not Available [address], [address], 04/24/2023 10:16:23 04/23/19 24 04/24/2023 COMP. METAB OLIC PANEL (14) calcium 9.3 mg/dL 8.6-10 .2 Not Available [address], [address], 04/24/2023 10:16:23 04/23/19 24 04/24/2023 COMP. METAB OLIC PANEL (14) protein, total 7.2 g/dL 6.0-8. 5 Not Available [address], [address], 04/24/2023 10:16:23 04/23/19 24 04/24/2023 COMP. METAB OLIC PANEL (14) albumin 4.5 g/dL 3.7-4. 7 Not Available [address], [address], 04/24/2023 10:16:23 04/23/19 24 04/24/2023 COMP. METAB OLIC PANEL (14) globulin, total 2.7 g/dL 1.5-4. 5 Not Available [address], [address], 04/24/2023 10:16:23 04/23/19 24 04/24/2023 COMP. METAB OLIC PANEL (14) A/G ratio 1.7 1.2-2. 2 Not Available [address], [address], 04/24/2023 10:16:23 04/23/19 24 04/24/2023 COMP. METAB OLIC PANEL (14) bilirubin, total 0.3 mg/dL 0.0-1. 2 Not Available [address], [address], 04/24/2023 10:16:23 04/23/19 24 04/24/2023 COMP. METAB OLIC PANEL (14) alkaline phosphatase 74 IU/L 44-121 Not Available [address], [address], 04/24/2023 10:16:23 04/23/19 24 04/24/2023 COMP. METAB OLIC PANEL (14) AST (SGOT) 25 IU/L 0-40 Not Available [address], [address], 04/24/2023 10:16:23 04/23/19 24 04/24/2023 COMP. METAB OLIC PANEL (14) ALT (SGPT) 23 IU/L 0-44 Not Available [address], [address], 04/24/2023 10:16:23 04/23/19 24 04/24/2023 LITHO LINK CKD PROGR AM interpretati on Note Suppl ement al repor t is avail able. Not Available [address], [address], 04/24/2023 10:16:24 04/23/19 24 04/24/2023 LITHO LINK CKD PROGR AM pdf . Not Available [facility] [address], [address], 04/24/2023 10:16:24 04/23/19 24 04/24/2023 CARDI OVASC ULAR REPOR T interpretati on Note Suppl ement al repor t is avail able. Not Available [address], [address], 04/24/2023 10:16:25 04/23/19 24 04/24/2023 CARDI OVASC ULAR REPOR T pdf Not applic able Not Available [facility] [address], [address], 04/24/2023 10:16:25 04/23/19 24 04/24/2023 CBC, PLATE LET, NO DIFFE RENTI AL WBC 9.6 x10e3 /uL 3.4-10 .8 Not Available [address], [address], 04/24/2023 10:16:25 04/23/19 24 04/24/2023 CBC, PLATE LET, NO DIFFE RENTI AL RBC 4.64 x10e6 /uL 4.14-5 .80 Not Available [address], [address], 04/24/2023 10:16:25 04/23/19 24 04/24/2023 CBC, PLATE LET, NO DIFFE RENTI AL hemoglobin 13.5 g/dL 13.0-1 7.7 Not Available [address], [address], 04/24/2023 10:16:25 04/23/19 24 04/24/2023 CBC, PLATE LET, NO DIFFE RENTI AL hematocrit 40.8 % 37.5-5 1.0 Not Available [address], [address], 04/24/2023 10:16:25 04/23/19 24 04/24/2023 CBC, PLATE LET, NO DIFFE RENTI AL MCV 88 fL 79-97 Not Available [address], [address], 04/24/2023 10:16:25 04/23/19 24 04/24/2023 CBC, PLATE LET, NO DIFFE RENTI AL MCH 29.1 pg 26.6-3 3.0 Not Available [address], [address], 04/24/2023 10:16:25 04/23/19 24 04/24/2023 CBC, PLATE LET, NO DIFFE RENTI AL MCHC 33.1 g/dL 31.5-3 5.7 Not Available [address], [address], 04/24/2023 10:16:25 04/23/19 24 04/24/2023 CBC, PLATE LET, NO DIFFE RENTI AL RDW 13.5 % 11.6-1 5.4 Not Available [address], [address], 04/24/2023 10:16:25 04/23/19 24 04/24/2023 CBC, PLATE LET, NO DIFFE RENTI AL platelets 289 x10e3 /uL 150-45 0 Not Available [address], [address], 04/24/2023 10:16:25 04/23/19 24 04/23/2023 HbA1c (hemo globi n A1c), blood HbA1c 8.8 Not Available In-Office Order Internal Use Only DO Not Attach Compendium DO Not Attach Compendium, Do Not Delete/merge, [id number] 04/23/2023 12:22:09 12/14/1912/15/2023 LIPID PANEL cholesterol, total 163 mg/dL 100-19 9 Not Available [address], [address], 12/15/2023 10:14:28 12/14/1912/15/2023 LIPID PANEL triglyceride s 244 mg/dL 0-149 above high normal Not Available [address], [address], 12/15/2023 10:14:28 12/14/1912/15/2023 LIPID PANEL HDL cholesterol 34 mg/dL >39 below low normal Not Available [address], [address], 12/15/2023 10:14:28 12/14/19 24 12/15/2023 LIPID PANEL VLDL cholesterol joel 41 mg/dL 5-40 above high normal Not Available [address], [address], 12/15/2023 10:14:28 12/14/1912/15/2023 LIPID PANEL LDL chol calc ([facility]) 88 mg/dL 0-99 Not Available [address], [address], 12/15/2023 10:14:28 12/14/1912/15/2023 COMP. METAB OLIC PANEL (14) glucose 176 mg/dL 70-99 above high normal Not Available [address], [address], 12/15/2023 10:14:30 12/14/1912/15/2023 COMP. METAB OLIC PANEL (14) BUN 26 mg/dL 8-27 Not Available [address], [address], 12/15/2023 10:14:30 12/14/19 24 12/15/2023 COMP. METAB OLIC PANEL (14) creatinine 1.71 mg/dL 0.76-1 .27 above high normal Not Available [address], [address], 12/15/2023 10:14:30 12/14/1912/15/2023 COMP. METAB OLIC PANEL (14) eGFR 39 mL/mi n/1.7 3 >59 below low normal Not Available [address], [address], 12/15/2023 10:14:30 12/14/19 24 12/15/2023 COMP. METAB OLIC PANEL (14) BUN/creatini ne ratio 15 10-24 Not Available [address], [address], 12/15/2023 10:14:30 12/14/1912/15/2023 COMP. METAB OLIC PANEL (14) sodium 139 mmol/ L 134-14 4 Not Available [address], [address], 12/15/2023 10:14:30 12/14/1912/15/2023 COMP. METAB OLIC PANEL (14) potassium 4.5 mmol/ L 3.5-5. 2 Not Available [address], [address], 12/15/2023 10:14:30 12/14/1912/15/2023 COMP. METAB OLIC PANEL (14) chloride 104 mmol/ L 96-106 Not Available [address], [address], 12/15/2023 10:14:30 12/14/1912/15/2023 COMP. METAB OLIC PANEL (14) carbon dioxide, total 22 mmol/ L Not Available [address], [address], 12/15/2023 10:14:30 12/14/1912/15/2023 COMP. METAB OLIC PANEL (14) calcium 9.0 mg/dL 8.6-10 .2 Not Available [address], [address], 12/15/2023 10:14:30 12/14/1912/15/2023 COMP. METAB OLIC PANEL (14) protein, total 6.9 g/dL 6.0-8. 5 Not Available [address], [address], 12/15/2023 10:14:30 12/14/19 24 12/15/2023 COMP. METAB OLIC PANEL (14) albumin 4.3 g/dL 3.7-4. 7 Not Available [address], [address], 12/15/2023 10:14:30 12/14/1912/15/2023 COMP. METAB OLIC PANEL (14) globulin, total 2.6 g/dL 1.5-4. 5 Not Available [address], [address], 12/15/2023 10:14:30 12/14/1912/15/2023 COMP. METAB OLIC PANEL (14) bilirubin, total 0.3 mg/dL 0.0-1. 2 Not Available [address], [address], 12/15/2023 10:14:30 12/14/19 24 12/15/2023 COMP. METAB OLIC PANEL (14) alkaline phosphatase 59 IU/L 44-121 Not Available [address], [address], 12/15/2023 10:14:30 12/14/19 24 12/15/2023 COMP. METAB OLIC PANEL (14) AST (SGOT) 19 IU/L 0-40 Not Available [address], [address], 12/15/2023 10:14:30 12/14/19 24 12/15/2023 COMP. METAB OLIC PANEL (14) ALT (SGPT) 18 IU/L 0-44 Not Available [address], [address], 12/15/2023 10:14:30 12/14/19 24 12/15/2023 LITHO LINK CKD PROGR AM interpretati on Note Suppl ement al repor t is avail able. Not Available [facility] & [address], [address], 12/15/2023 10:14:32 12/14/19 24 12/15/2023 JEROME LINK CKD PROGR AM pdf . Not Available [facility] & [address], [address], 12/15/2023 10:14:32 12/14/19 24 12/15/2023 CARDI OVASC ULAR REPOR T interpretati on Note Suppl ement al repor t is avail able. Not Available [address], [address], 12/15/2023 10:14:32 12/14/19 24 12/15/2023 CARDI OVASC ULAR REPOR T pdf Not applic able Not Available [facility] & [address], [address], 12/15/2023 10:14:32 12/14/1912/15/2023 CBC, PLATE LET, NO DIFFE RENTI AL WBC 9.1 x10e3 /uL 3.4-10 .8 Not Available [address], [address], 12/15/2023 10:14:33 12/14/1912/15/2023 CBC, PLATE LET, NO DIFFE RENTI AL RBC 4.14 x10e6 /uL 4.14-5 .80 Not Available [address], [address], 12/15/2023 10:14:33 12/14/19 24 12/15/2023 CBC, PLATE LET, NO DIFFE RENTI AL hemoglobin 11.9 g/dL 13.0-1 7.7 below low normal Not Available [address], [address], 12/15/2023 10:14:33 12/14/1912/15/2023 CBC, PLATE LET, NO DIFFE RENTI AL hematocrit 37.6 % 37.5-5 1.0 Not Available [address], [address], 12/15/2023 10:14:33 12/14/1912/15/2023 CBC, PLATE LET, NO DIFFE RENTI AL MCV 91 fL 79-97 Not Available [facility] & [address], [address], 12/15/2023 10:14:33 12/14/1912/15/2023 CBC, PLATE LET, NO DIFFE RENTI AL MCH 28.7 pg 26.6-3 3.0 Not Available [address], [address], 12/15/2023 10:14:33 12/14/1912/15/2023 CBC, PLATE LET, NO DIFFE RENTI AL MCHC 31.6 g/dL 31.5-3 5.7 Not Available [address], [address], 12/15/2023 10:14:33 12/14/1912/15/2023 CBC, PLATE LET, NO DIFFE RENTI AL RDW 14.0 % 11.6-1 5.4 Not Available [address], [address], 12/15/2023 10:14:33 12/14/1912/15/2023 CBC, PLATE LET, NO DIFFE RENTI AL platelets 256 x10e3 /uL 150-45 0 Not Available [address], [address], 12/15/2023 10:14:33 04/11/1904/11/2024 Hemog lobin A1c/H emogl obin. total in Blood hemoglobin A1C, POC 7.6 % low: 4%high : 5.6% Hemog lobin A1C, POC 7.6 4.0 - 5.6 % Not Available Not Available 04/11/2024 13:22:43 05/13/19 23 05/12/2022 XR, knee No observ ation record ed. [facility] [address] [place], [address], 05/12/2022 17:14:05 05/13/19 23 05/12/2022 XR, knee No observ ation record ed. [facility] [address] [place], [address], 05/12/2022 17:14:05 02/12/20 24 02/12/2024 US, renal No observ ation record ed. [facility] [address] [place], [address], 02/12/2024 13:27:12 02/12/20 24 02/12/2024 US, renal No observ ation record ed. [facility] [address] [place], [address], 03/14/2024 10:13:53 03/03/19 25 03/03/2024 US, pelvi s No observ ation record ed. [facility] [address] [place], [address], 03/03/2024 16:20:04 Result Notes None recorded. Problems Name Problem SNOMED Code Status Onset Date Resolution Date Notes Provider Name and Address Organization Details Recorded Time Type 2 diabetes mellitus without complication 042846712 Active 2022 Not Available [facility] 14:02:27 Problem Notes None recorded. Procedures Surgical History Date Name Laterality Status Provider Name and Address Organization Details Recorded Time 02/16/19 21 colonoscopy completed Lauryn [place] MA [facility] 10/05/2020 10:38:12 02/16/18 85 Cholecystectomy completed Lauryn [place] MA [facility] 10/05/2020 10:38:49 02/16/18 85 Appendectomy completed Lauryn [place] MA [facility] 10/05/2020 10:38:41 Imaging Results Imaging Date Name Status LastModified by Organiz ation Details LastModified Time 05/12/2022 XR, knee completed [facility] [address] [place], [address], 05/12/2022 17:14:05 05/12/2022 XR, knee completed [facility] [address] [place], [address], 05/12/2022 17:14:05 02/12/2024 US, renal completed [facility] [address] [place], [address], 02/12/2024 13:27:12 02/12/2024 US, renal completed [facility] [address] [place], [address], 03/14/2024 10:13:53 03/03/2024 US, pelvis completed [facility] [address] [place], [address], 03/03/2024 16:20:04 Procedure Notes None recorded. Medical Equipment None Reported. Allergies Allergen ID Allergen Name Allergen Category Reaction Reaction Severity Criticality Documentation Date Start Date Code Code System Note Provider Name and Address Organization Details Recorded Time 737791 metformin medicatio n diarrhea Not available Not available 01/27/2023 0569 RxNorm Not Available Not Available Not Available Medications Name Sig Start Date Stop Date Status Note LastModified by Organization Details LastModified Time metformin 500 mg tablet TAKE 2 TABLETS BY MOUTH TWICE A DAY 03/14 completed Not Available Not Available Not Available benzonatat e 200 mg capsule Take 1 capsule 3 times a day by oral route as needed for 30 days. 12/13 completed Not Available Not Available Not Available simvastati n 10 mg tablet TAKE 1 TABLET BY MOUTH DAILY active Not Available Not Available No t Available Lantus U-100 Insulin 100 unit/mL subcutaneo us solution inject 20 units under the skin every evening 06/06 completed Not Available Not Available Not Available metronidaz ole 500 mg tablet TAKE 1 TABLET BY MOUTH THREE TIMES A DAY FOR 10 DAYS 03/14 completed Not Available Not Available Not Available allopurino l 100 mg tablet TAKE 1 TABLET BY MOUTH DAILY active Not Available Not Available No t Available ciprofloxa pau 500 mg tablet TAKE 1 TABLET BY MOUTH TWICE A DAY FOR 10 DAYS 03/14 completed Not Available Not Available Not Available peg-electr olyte solution 420 gram oral solution TAKE DIRECTED. 10/05 completed Not Available Not Available Not Available omeprazole 40 mg capsule,de layed release TAKE 1 CAPSULE BY MOUTH DAILY 2024 active Not Available Not Available Not Avai lable dicyclomin e 20 mg tablet 03/14 completed Not Available Not Available Not Available OneTouch Ultra Test strips active Not Available Not Available Not Available clotrimazo le-betamet hasone 1 %-0.05 % topical cream APPLY TOPICALLY TO AFFECTED AREA(S) TWICE DAILY 2024 active Not Available Not Available Not Avai lable aspirin 81 mg chewable tablet Chew 1 tablet every day by oral route. 05/16 completed Not Available Not Available Not Available losartan 100 mg tablet TAKE 1 TABLET BY MOUTH EVERY DAY active Not Available Not Available No t Available colestipol 1 gram tablet 06/06 completed Not Available Not Available Not Available azithromyc in 500 mg tablet Take 1 tablet every day by oral route for 3 days. 12/13 completed Not Available Not Available Not Available Vitamin D3 05/16 completed Not Available Not Available Not Available vitamin H04-hdath acid 05/16 completed Not Available Not Available Not Available Januvia 100 mg tablet TAKE 1 TABLET BY MOUTH EVERY DAY 06/06 completed Not Available Not Available Not Available pen needle, diabetic 32 gauge x 5/32 USE 1 NEW PEN NEEDLE ONCE DAILY active Not Available Not Available No t Available BD Insulin Syringe Ultra-Fine 0.5 mL 31 gauge x 07/01 active Not Available Not Available Not Available Soliqua 100/33 100 unit-33 mcg/mL subcutaneo us insulin pen INJECT 34 UNITS UNDER THE SKIN VARNISH COOKER BEFORE BREAKFAST E11.9 active 42 Units Not Available Not Available Not Available OneTouch Ultra2 Meter active Not Available [...] Updated DateTime 3 160.02 cm 37 kg/m2 16283.8 1 g 94 % 94 % 101 /min 98.2 [degF] 133 mm[Hg] 70 mm[Hg] Alondra brown MA [facility] 3 10:34:48 Date Recorded Body height Body mass index (BMI) Body weight Respiratory rate Oxygen saturation Oxygen saturation in Arterial blood by Pulse oximetry Heart rate Systolic blood pressure Diastolic blood pressure Provider Name and Address Organization Details Last Updated DateTime 3 160.02 cm 37 kg/m2 59952.8 1 g 18 /min 97 % 97 % 89 /min 135 mm[Hg] 70 mm[Hg] Joanne Mcdaniels MA [facility] 3 10:54:00 Date Recorded Body height Body mass index (BMI) Body weight Oxygen saturation Oxygen saturation in Arterial blood by Pulse oximetry Heart rate Respiratory rate Body temperature Systolic blood pressure Diastolic blood pressure Provider Name and Address Organization Details Last Updated DateTime 4 160.02 cm 36.5 kg/m2 46970.3 1 g 95 % 95 % 90 /min 18 /min 97.6 [degF] 118 mm[Hg] 72 mm[Hg] Kathi Small MA [facility] 4 12:00:21 Date Recorded Body height Body mass index (BMI) Body weight Heart rate Oxygen saturation Oxygen saturation in Arterial blood by Pulse oximetry Systolic blood pressure Diastolic blood pressure Provider Name and Address Organization Details Last Updated DateTime 4 160.02 cm 36.1 kg/m2 89396.8 4 g 61 /min 95 % 95 % 140 mm[Hg] 80 mm[Hg] Joanne Mcdaniels [place] [facility] 4 15:01:37 Date Recorded Body height Body mass index (BMI) Body weight Oxygen saturation Oxygen saturation in Arterial blood by Pulse oximetry Heart rate Systolic blood pressure Diastolic blood pressure Provider Name and Address Organization Details Last Updated DateTime 5 160.02 cm 36.3 kg/m2 54725.4 4 g 99 % 99 % 61 /min 130 mm[Hg] 60 mm[Hg] Lauryn [place] [facility] 5 10:31:48 Social History Question Answer Notes LastModified by Organizat ion Details LastModified Time Tobacco Smoking Status Former Smoker Quit 1971 Lauryn Israel MA null, [place] [facility] 10/05/2020 10:37:15 What Is Your Level Of [...] Date Of Your Most Recent Tobacco Screening? 05/16/2024 Information not available 05/16/2024 What Is Your Relationship Status? Information not [...] Anxious, Or Unable To Sleep At Night)? [id number] Information not available 10/05/2020 Do You Use [...] Eating Disorder N Anemia N Heart Attack ([place]) N Anxiety Disorder N Diabetes N Muscle, Joint, or Bone Problems N Seizures/Epilepsy N Acid Reflux (GERD) N Cancer Y Stroke N Asthma N Allergies N ADHD N Substance Abuse N High Cholesterol Y Hepatitis N Liver Disease N Schizophrenia N Headaches N Heart Failure N Osteoporosis N Immunizations Vaccine Type Date Status Note [...] [facility] 01/27/2023 09:22:16 Tdap 9 completed [place], [place] - [facility] 01/27/2023 09:22:16 Influenza, adjuvanted, [...] SNOMED-CT Code Diagnosis ICD10 Code Diagnosis Note [id number] Lauryn Israel MA [facility] [address] [place] [address] 10/05/2020 09:49:20 10/05/2020 11:56:07 Upper gastrointestinal bleeding 75951964 K92.89 Chronic di arrhea of unknown origin 05728240 K52.9 Type 2 ирина betes mellitus without complication 892452600 E11.9 [id number] Nadine Weston PA-C [facility] [address] [place] [address] 03/14/2021 17:32:33 03/14/2021 19:15:15 Type 2 diabetes mellitus without complication 994268749 E11.9 Uncontroll ed type 2 diabetes mellitus 689944295 E11.65 Obstructiv e sleep apnea syndrome 93913694 G47.33 [id number] Nadine Weston PA-C [facility] [address] [place] [address] 06/06/2021 10:28:35 06/06/2021 11:49:18 Adult health examination 255392958 Z00.00 Type 2 ирина betes mellitus without complication 472270149 E11.9 Anemia 137765154 D50.8 [id number] Lauryn Israel MA [facility] [address] [place] [address] 06/06/2021 10:35:22 06/06/2021 13:01:13 Administration of SARS-CoV-2 mRNA vaccine 7759446214 Z23 [id number] Nadine Weston PA-C [facility] [address] [place] [address] 01/30/2022 15:14:31 01/30/2022 16:06:40 Overweight 210195792 E66.3 Essential hypertension 73792537 I10 Mixed hyperlipidemia 267 414642 E78.2 Type 2 ирина betes mellitus without complication 942159876 E11.9 Anemia 651074638 D50.8 [id number] Nadine Weston PA-C [facility] [address] [place] [address] 03/21/2022 10:40:39 03/21/2022 11:24:24 Acute bronchitis with bronchospasm 88864101 J20.8 Overweight 194103647 E66 .3 [id number] Nadine Weston PA-C [facility] [address] [place] [address] 05/12/2022 10:24:39 05/13/2022 09:22:45 Pain of bilateral knee joints 7292573829 13610 M25.561 M25.562 Overweight 597083645 E66 .3 Anemia 597302609 D64.89 [id number] Nadine Weston PA-C [facility] [address] [place] [address] 01/27/2023 10:45:44 01/29/2023 15:22:38 Acute bronchitis with bronchospasm 81220630 J20.8 Overweight 978099537 E66 .3 [id number] Nadine Weston PA-C [facility] [address] [place] [address] 04/23/2023 11:49:34 04/27/2023 16:19:04 Bilateral conjunctivitis 9026288376 8261933 H10.013 Type 2 ирина betes mellitus without complication 633914625 E11.9 [id number] Nadine Weston PA-C [facility] [address] [place] [address] 12/14/2023 14:24:52 12/17/2023 09:44:01 Hyperkalemia 13563960 E87.5 Chronic ki dney disease stage 3 657069818 N18.31 Overweight 408736628 E66 .3 [id number] Nadine Weston PA-C [facility] [address] [place] [address] 05/16/2024 10:20:43 05/17/2024 08:54:44 Type 2 diabetes mellitus without complication 085805088 E11.9 History of malignant neoplasm of prostate 019157856 Z85.46 Overweight 772896422 E66 .3 Health Concerns Section Related Observation LastModified by Organization Detai ls LastModified Time None Recorded Concern Status LastModified by Organization Details LastModified Time None Recorded Advance Directives Directive None Recorded Payers Encounter Date Sequence Insurance Name Policy Number Policy Hendrickson Covered Member ID Hendrickson Member ID Guarantor Name 05/12/2022 1 [facility] (MEDICARE REPLACEMENT/A DVANTAGE - HMO) [id number] Ruben Callahan [id number] Ruben Callahan 01/27/2023 1 [facility] (MEDICARE REPLACEMENT/A DVANTAGE - HMO) [id number] Ruben Callahan [id number] Ruben Callahan 04/23/2023 1 [facility] (MEDICARE REPLACEMENT/A DVANTAGE - HMO) [id number] Ruben Callahan [id number] Ruben Callahan 12/14/2023 1 [facility] (MEDICARE REPLACEMENT/A DVANTAGE - HMO) [id number] Ruben Callahan [id number] Ruben Callahan 05/16/2024 1 [facility] (MEDICARE REPLACEMENT/A DVANTAGE - HMO) [id number] Ruben Callahan [id number] Ruben London Notes Date Note Type Note Provider Name and Address Organization Details Recorded Time 05/12/2022 text/html annual check up...bilateral knee pain (R>L)...reports they give out on him ... Nadine Wesotn PA-C Attn: Accounting,[address] [place], [place], [address] [place] [address], [facility] 05/12/2022 11:36:30 01/27/2023 text/html has had a cougf for 3-4 months...cant shake it... Nadine Weston PA-C Attn: [address]ing,[address] [place], [place], [address] [place] [address], [facility] 01/27/2023 11:08:42 04/23/2023 text/html went to [employer] for dinner..son reports that the whites of his eyes were dark...after getting home the colored had lightened but still not normal... Nadine Weston PA-C Attn: Accounting,[address] [place], [place], [address] [place] [address], [facility] 04/23/2023 12:24:46 12/14/2023 text/html potassium has been going up...says kidney function is getting worse...creatine going up...has appt with dr hollingsworth in january...needs labs Nadine Weston PA-C Attn: Accounting,[address] [place], [address], [facility] 12/14/2023 15:32:59 05/16/2024 text/html here for lab results and parking placard...result s going to his kidney doctor Nadine Weston PA-C Attn: Accounting,[address] [place], [address], [facility] 05/16/2024 10:52:55
--- OUTSIDE RECORDS SUMMARY | 2024-05-26 09:57 | XMS_ITS | Clinical Summary ---
Author Organization [facility] Address [address], [address] [address] Phone Care Team Providers Care Portable Track Crew Chief Name Role Phone Demetrio Araiza MD Unavailable [phone] Ronan Farley MD Unavailable [phone] Alex Cross MD Unavailable [phone] Demetrio Weston Primary Care Provider [phone] Mary Jo Atkinson APRN, LABORATORY OPERATIONS COORDINATOR Unavailable [phone] Allergies No known active allergies Medications omeprazole [...] neoplasm 12/30/2016 Overview (02/14/2019): Clinical stage IIA ([id number] Benjamín 3 + 4 histology and PSA [...] IIA(T2a, N0, M0, 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, [place] 7 - Moderately differentiated (moderate anaplasia)) - Signed by Demetrio Araiza MD on 02/23/2016 Encounters Date Type Department Care Team Description 04/01/2024 2:36 PM PINION AND WHEEL TRUER - 04/01/2024 11:59 PM PINION AND WHEEL TRUER [facility] [address] [place] [address] Felipe Mclaughlin MD Discharge Disposition: Discharged to home or Selfcare 04/01/2024 Travel 04/01/2024 [facility] Admitting [address] [place] [address] Felipe Mclaughlin MD Stage 3b chronic kidney [...] CONTRAST Stat with Interpretation 04/01/2024 2:50 PM PINION AND WHEEL TRUER Stage 3b chronic kidney disease (HCC) CMP (COMPREHENSIVE METABOLIC PANEL) 03/11/2022 12:00 AM PINION AND WHEEL TRUER HEMOGLOBIN A1C W/ ESTIMATED GLUCOSE STAT 03/16/2021 10:06 PM PINION AND WHEEL TRUER from Last 3 Months or Most Recently Relevant to Health Maintenance Results * CT ABDOMEN PELVIS W/O CONTRAST (04/01/2024 2:50 PM PINION AND WHEEL TRUER) Anatomical Region Laterality Modality Abdomen N/A Computed Tomogra phy 04/01/2024 3:17 PM PINION AND WHEEL TRUER Impressions 04/01/2024 3:19 PM PINION AND WHEEL TRUER IMPRESSION: Extensive colonic diverticulosis with mild stranding [...] findings as above. Narrative 04/01/2024 3:19 PM PINION AND WHEEL TRUER EXAM DESCRIPTION: CT ABDOMEN PELVIS W/O CONTRAST [...] Kobe Jay M.D. NS: NS Report ID: [id number] Reading Location: [id number] Procedure Note Kobe Jay MD - 04/01/2024 [...] Kobe Jay M.D. NS: NS Report ID: [id number] Reading Location: [place] [address] IMPRESSION: Extensive colonic diverticulosis with mild stranding [...] CMP (COMPREHENSIVE METABOLIC PANEL) (03/11/2022 12:00 AM PINION AND WHEEL TRUER) 03/11/2022 Provider Scan CHEMISTRY ORDERABLES Final Resul t SCAN * (ABNORMAL) Hemoglobin A1C w/ Estimated Glucose (03/16/2021 10:06 PM PINION AND WHEEL TRUER) HGB-A1C 12.6(H) 4.0 - 6.0 % 03/16/2021 11:39 PM PINION AND WHEEL TRUER [facility] Est Average Glucose 314.9 mg/dL 03/16/2021 11:39 PM PINION AND WHEEL TRUER [facility] Blood Venipuncture / Unknown 03/16/2021 10:06 PM PINION AND WHEEL TRUER 03/16/2021 11:10 PM PINION AND WHEEL TRUER Narrative [facility] - 03/16/2021 11:39 PM PINION AND WHEEL TRUER HEMOGLOBIN A1C: DIABETIC PATIENTS: WELL-CONTROLLED: 6.2 - 7.0 INTERMEDIATE WELL-CONTROLLED: 7.0 - 9.0 POORLY-CONTROLLED: >9.0 us Rajan Carvalho MD CHEMISTRY ORDERABLES Anjali shipman Result [facility] [address] [place] [address] from Last 3 Months or Most Recently Relevant to Health Maintenance Insurance MEDICARE C [facility] [place] [address] Care Teams Portable Track Crew Chief Relationship Specialty Start Date End Date Demetrio Weston PAC [address] [place] [address] PCP - General Physician Manager Telemetry 11/08/20 Demetrio Araiza MD Consulting Physician Radiation Oncology 02/14/16 Ronan Farley MD Consulting Physician Urology 02/22/16 Alex Cross MD [address] [place] [address] Consulting Physician Orthopaedic Surgery 02/23/16 Mary Jo Atkinson, AUDIOMETRIST, LABORATORY OPERATIONS COORDINATOR NPI: [id number] [place] [address] [address] [place] [address] Nurse Practitioner Endocrinology 11/14/21
--- OUTSIDE RECORDS SUMMARY | 2024-05-26 09:57 | XMS_ITS | Encounter Summary ---
Author Organization [facility] Address [facility] [place] [address] Care Team Providers Care Middle [employer] Baseball Coach Name Role Phone Blake Nixon MD Primary Care Provider [phone] Encounter Details Date Type Department Care Team (Late st Contact Info) Description 03/08/2020 Hospital Follow-up Call [facility] Orthopa[facility]ics [address] [place] [address] Tracie Gimenez RN Social History Tobacco Use Types Packs/Day Years Used Date Smoking Tobacco: Former Smokeless Tobacco: Former Alcohol Use Standard Drinks/Week Comments Yes 0 (1 standard drink = 0.6 oz pur e alcohol) RARE Sex and Gender Information Value Date Recorded Sex Assigned at Not on file Legal Sex Male 9:[address] PACKER OPERATOR Gender Identity Not on file Sexual Orientation Not on file COVID-19 Exposure Response Date Recorded In the last month, have you been in contact with someone who was confirmed or suspected to have Coronavirus / COVID-19? No / Unsure 03/04/2020 9:[address] PACKER OPERATOR documented as of this encounter Functional Status * RETIRED Are you deaf or do you have serious difficulty hearing Answer Date of Assessment Author Status Yes 03/04/2020 9:[address] PACKER OPERATOR Acti ve * RETIRED Are you blind or do you have serious difficulty seeing, even when wearing glasses? Answer Date of Assessment Author Status No 03/04/2020 9:[address] PACKER OPERATOR Activ e * Do you have serious difficulty walking or climbing stairs? Answer Date of Assessment Author Status No 03/04/2020 9:[address] PACKER OPERATOR Camacho, Dorlisa C, RN Active * Do you have difficulty [...] documented as of this encounter Care Teams Middle School Baseball Coach Relationship Specialty Start Date End Date Blake Nixon MD [address] [place] [phone] PCP - General FAMILY PRACTICE 07/15/18 documented as of this encounter
== END 2024-05-26 09:32 | disposition home or self-care (01) ==
LOC: CHSIMG 09:33
PROVIDERS: PCP Physician Assistant; Visit Provider Internal Medicine Nephrology
DX: N18.32 Chronic kidney disease, stage 3b (principal); N28.1 Cyst of kidney, acquired; N26.1 Atrophy of kidney (terminal)
CPT/HCPCS: 74181

== ENCOUNTER 2024-11-07 09:20 | Outpatient (CLI) | payer MEDICARE, SELFPAY ==
[2024-11-07 09:35] LABS: Hematocrit 36.9 % (37.0-46.0); Hemoglobin 12.0 g/dL (12.4-15.3); Mean Corpuscular HGB Conc 32.5 g/dL (32-36); Mean Corpuscular Hemoglobin 29.1 pg (27.0-31.0); Mean Corpuscular Volume 89.6 fL (78.0-102.0); Platelet Count Result 241 K/mm3 (150-420); Red Blood Count 4.12 M/mm3 (4.70-6.10); White Blood Count 10.7 K/mm3 (4.8-10.8)
[2024-11-07 09:48] LABS: MALB Creatinine Ratio 102.8 mg/g (0-30)
--- OUTSIDE RECORDS SUMMARY | 2024-11-07 10:11 | XMS_ITS | Clinical Summary ---
Author Organization [facility] Facility Address [address] [place] [address] Care Team Providers Care Kieselguhr Regenerator Operator Name Role Phone Demetrio Weston Primary Care Provider [phone] Allergies Active Allergy Reactions Criticality Noted Date Comments Metformin 02/01/2024 Medications allopurinol (ZYLOPRIM) 100 MG tablet Take 1 tablet by mouth 1 (one) time each day Active clotrimazole-be tamethasone (LOTRISONE) cream Apply 90 application. topically in [...] mouth 1 (one) time each day Active Active Problems No known active problems Family History Medical History Relation Comments Cancer [...] 11:11 AM CDT Height 157.5 cm (5' 2) 02/01/2024 3:18 PM MANAGER OF DEVELOPMENT Body Mass Index 37.31 02/01/2024 3:18 PM MANAGER OF DEVELOPMENT Plan of Treatment Upcoming Encounters Date Type Department Care Team (Late st Contact Info) Description 11/18/2024 11:00 AM CDT Office Visit [place] [facility] [address] [facility] [place] [phone] Felipe Mclaughlin MD [address] [facility] [address] [place] [address] Health Maintenance Due Date Last Done Comments Diabetes: Ophthalmology Exam 12/09/2023 Diabetes: Pedal Pulse Checked 12/09/2023 Diabetes: Sensory Foot Exam 12/09/2023 Diabetes: Visual Foot Exam 12/09/2023 Diabetes: Hemoglobin A1C 07/09/202404/11/2 025, 12/07/2023, 03/16/2021 Influenza Vaccine (#1) 2024 3, 12/13/2020, 12/08/2019, Additional history exists Pneumococcal Vaccine: 50+ Years Completed 12/07/2020, 2017, 12/03/2016, Additional history exists Hepatitis B Vaccine Aged Out No longe r eligible based on patient's age to complete this topic Insurance [facility] Medicare Advance Directives Documents on File Type Date Recorded Patient Balance Bridge Inspector Expl anation Advance Care Planning 03/10/2024 2:25 PM Care Teams Kieselguhr Regenerator Operator Relationship Specialty Start Date End Date Demetrio Weston PA [address] [place] [address] PCP - General Internal Medicine 12/09/23
--- OUTSIDE RECORDS SUMMARY | 2024-11-07 10:11 | XMS_ITS | Encounter Summary ---
Author Organization [facility] Address [facility] [place] [address] Care Team Providers Care Boatswain Mate Name Role Phone Blake Nixon MD Primary Care Provider [phone] Encounter Details Date Type Department Care Team (Late st Contact Info) Description 03/08/2020 Hospital Follow-up Call [facility]opa[facility] [address] [place] [address] Tracie Gimenez RN Social History Tobacco Use Types Packs/Day Years Used Date Smoking Tobacco: Former Smokeless Tobacco: Former Alcohol Use Standard Drinks/Week Comments Yes 0 (1 standard drink = 0.6 oz pur e alcohol) RARE Sex and Gender Information Value Date Recorded Sex Assigned at Not on file Legal Sex Male 9:42 PM LICENSED OPTICAL DISPENSER Gender Identity Not on file Sexual Orientation Not on file COVID-19 Exposure Response Date Recorded In the last month, have you been in contact with someone who was confirmed or suspected to have Coronavirus / COVID-19? No / Unsure 03/04/2020 9:26 AM LICENSED OPTICAL DISPENSER documented as of this encounter Functional Status * RETIRED Are you deaf or do you have serious difficulty hearing Answer Date of Assessment Author Status Yes 03/04/2020 9:08 AM LICENSED OPTICAL DISPENSER Activ e * RETIRED Are you blind or do you have serious difficulty seeing, even when wearing glasses? Answer Date of Assessment Author Status No 03/04/2020 9:08 AM LICENSED OPTICAL DISPENSER Activ e * Do you have serious difficulty walking or climbing stairs? Answer Date of Assessment Author Status No 03/04/2020 9:08 AM LICENSED OPTICAL DISPENSER Montez Camacho RN Active * Do you [...] documented as of this encounter Care Teams Boatswain Mate Relationship Specialty Start Date End Date Blake Nixon MD [address] [place] [phone] PCP - General FAMILY PRACTICE 07/15/18 documented as of this encounter
--- OUTSIDE RECORDS SUMMARY | 2024-11-07 10:11 | XMS_ITS | Clinical Summary ---
Author Organization [facility] Address [address], [address] [address] Phone Care Team Providers Care Licensed Sales Assistant Name Role Phone Demetrio Araiza MD Unavailable [phone] Ronan Farley MD Unavailable [phone] Alex Cross MD Unavailable [phone] Demetrio Weston Primary Care Provider [phone] Mary Jo Atkinson APRN, SALES COMMUNICATIONS MANAGER Unavailable [phone] Allergies No known active allergies Medications omeprazole [...] neoplasm 12/30/2016 Overview (02/14/2019): Clinical stage IIA ([id number] Benjamín 3 + 4 histology and PSA [...] 9:01 AM CDT Height 165.1 cm (5' 5) 11/05/2022 9:01 AM CDT Body Mass Index 34.5 11/05/2022 9:01 AM CDT Plan of Treatment Health Maintenance Due Date Last Done Comments Diabetes: Eye Exam 1941 Diabetes: Foot Exam 1940 Hepatitis C Virus (HCV) Screening 1940 Diabetes: Nephropathy Screening 03/11/2023 03/11/2022, 03/16/2021, 03/13/2021, Additional history exists Diabetes: Hemoglobin A1c 06/06/2024 024, 10/31/2022, 07/31/2022, Additional history exists Influenza Immunization (#1) 10/17/202411/17, 11/22/2022, 12/17/2021, Additional history exists SARS-COV-2 Immunization (8 - 2024-25 season) 2024 12/08/2023, 11/22/2022, 01/06/2022, Additional history exists DTaP/Tdap/Td Immunization Discontinued 02/14/2019, TdaP Immunization Completed 02/14/2019, 05/05/2012 Pneumococcal Immunization (50+ years) Completed 01/07/2022, 01/07/2021, 12/07/2020, Additional history exists Pneumococcal Immunization Combined Discontinued 01/07/2022, 01/07/2021, 12/07/2020, Additional history exists Respiratory Syncytial Virus (RSV) Immunization (Adult) Completed 08/27/2023 Zoster Immunization Completed 09/29/2023, 07/28/2023, 10/08/2012 Hepatitis B Immunization Aged Out No longer eligible based on patient's age to complete this topic Human Papillomavirus (HPV) Immunization Aged Out No longer eligible based on patient's age to complete this topic Meningococcal Immunization (ACWY) Aged Out No longer eligible based on patient's age to complete this topic Rotavirus Immunization Aged Out No lo nger eligible based on patient's age to complete this topic Procedures Procedure Name Priority Date/Time Associated Diagnosis Comments CMP (COMPREHENSIVE METABOLIC PANEL) 03/11/2022 12:00 AM LEAD PRESSMAN ROTO GRAVURE PRINTING HEMOGLOBIN A1C W/ ESTIMATED GLUCOSE STAT 03/16/2021 10:06 PM LEAD PRESSMAN ROTO GRAVURE PRINTING from Last 3 Months or Most Recently Relevant to Health Maintenance Results * CMP (COMPREHENSIVE METABOLIC PANEL) (03/11/2022 12:00 AM LEAD PRESSMAN ROTO GRAVURE PRINTING) 03/11/2022 us Provider Scan CHEMISTRY ORDERABLES Final Resul t SCAN * (ABNORMAL) Hemoglobin A1C w/ Estimated Glucose (03/16/2021 10:06 PM LEAD PRESSMAN ROTO GRAVURE PRINTING) HGB-A1C 12.6(H) 4.0 - 6.0 % 03/16/2021 11:39 PM LEAD PRESSMAN ROTO GRAVURE PRINTING [facility] Est Average Glucose 314.9 mg/dL 03/16/2021 11:39 PM LEAD PRESSMAN ROTO GRAVURE PRINTING [facility] Blood Venipuncture / Unknown 03/16/2021 10:06 PM LEAD PRESSMAN ROTO GRAVURE PRINTING 03/16/2021 11:10 PM LEAD PRESSMAN ROTO GRAVURE PRINTING Narrative [facility] - 03/16/2021 11:39 PM LEAD PRESSMAN ROTO GRAVURE PRINTING HEMOGLOBIN A1C: DIABETIC PATIENTS: WELL-CONTROLLED: 6.2 - 7.0 INTERMEDIATE WELL-CONTROLLED: 7.0 - 9.0 POORLY-CONTROLLED: >9.0 us Rajan Carvalho MD CHEMISTRY ORDERABLES Anjali l Result [facility] [place] [address] from Last 3 Months or Most Recently Relevant to Health Maintenance [facility] Care Teams Licensed Sales Assistant Relationship Specialty Start Date End Date Demetrio Weston PAC [address] [place] [id number] PCP - General Physician Print Machine Operator 11/08/20 Demetrio Araiza MD Consulting Physician Radiation Oncology 02/14/16 Ronan Farley MD Consulting Physician Urology 02/22/16 Alex Cross MD [address] [place] [address] Consulting Physician Orthopaedic Surgery 02/23/16 Mary Jo Atkinson, TABLET MACHINE OPERATOR, SALES COMMUNICATIONS MANAGER [address] [place] [address] [address] [place] [address] Nurse Practitioner Endocrinology 11/14/21
--- OUTSIDE RECORDS SUMMARY | 2024-11-07 10:11 | XMS_ITS | Clinical Summary ---
Author Organization [facility] Address [address] [place] [address] Care Team Providers Care Plant Anatomy Teacher Name Role Phone Blake Nixon MD Primary [...] on file Legal Sex Male 9:42 PM CONE FORMER Gender Identity Not on file Sexual Orientation Not on file Last Filed Vital Signs Vital Sign Reading Time Taken Comments Blood Pressure 143/64 03/06/2020 3:56 AM CONE FORMER Pulse 65 03/06/2020 3:56 AM CONE FORMER Temperature 36.3 C (97.3 F) 03/06/2020 3:56 AM CONE FORMER Respiratory Rate 18 03/06/2020 3:56 AM CONE FORMER Oxygen Saturation 97% 03/06/2020 3:56 AM CONE FORMER Inhaled Oxygen Concentration - - Weight 98.1 kg (216 lb 4.3 oz) 03/04/2020 9:00 P M CONE FORMER Height 165.1 cm (5' 5) 03/04/2020 9:11 AM CONE FORMER Body Mass Index 35.99 03/04/2020 9:11 AM CONE FORMER Plan of Treatment Health Maintenance Due Date Last Done Comments DTaP, Tdap and Td Vaccines ( 1 - Tdap) 1960 Pneumococcal Vaccine: 50+ Ye ars (1 of 1 - PCV) 04/22/1991 Annual Medicare Wellness Visit 2006 Zoster Vaccines (2 of 3) 12/03/2012 10/08/2012 RSV Immunization or 60+ Years (1 - 1-dose 75+ series) 2016 COVID-19 Vaccine ( - 2023-2 5 season) 2024 Meningococcal B Vaccine Aged Out No l [...] 9:06 AM 03/06/2020 2:54 PM Care Teams Plant Anatomy Teacher Relationship Specialty Start Date End Date Blake Nixon MD [address] [place] [phone] PCP - General FAMILY PRACTICE 07/15/18
--- OUTSIDE RECORDS SUMMARY | 2024-11-07 10:11 | XMS_ITS | Encounter Summary ---
Author Organization [facility] Address [facility] [place] [address] Care Team Providers Care Telecommunications Support Name Role Phone Blake Nixon MD Primary Care Provider Encounter Details Date Type Department Care Team (Late st Contact Info) Description 05/02/2017 Abstract [facility] CONVERSION [address] [place] [address] , Generic ConversionMD Social History Tobacco Use Types Packs/Day Years Used Date Smoking Tobacco: Never Assessed Sex and Gender Information Value Date Recorded Sex Assigned at Not on file Legal Sex Male 9:42 PM COKE WORKER Gender Identity Not on file Sexual Orientation Not on file documented as of this encounter Plan of Treatment Not on file documented as of this encounter Visit Diagnoses Not on filedocumented in this encounter Additional Health Concerns Infection Onset Date Last Indicated Resolved Time 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
[2024-11-07 10:14] LABS: Albumin Level 4.4 g/dL (3.5-5.1); Anion Gap 11 mmol/L (4-12); Blood Urea Nitrogen 32 mg/dL (9-20); Calcium 9.5 mg/dL (8.4-10.2); Carbon Dioxide 24 mmol/L (22-30); Chloride 106 mmol/L (98-107); Estimated Glomerular Filt Rate 38; Glucose 140 mg/dL (65-110); Osmolality Calculated 300 mOsm/kg (285-295); Potassium 4.9 mmol/L (3.4-5.0); Sodium 141 mmol/L (137-145)
[2024-11-07 11:15] LABS: Iron 71 ug/dL (49-181)
[2024-11-07 11:25] LABS: Percent Iron Saturation 22 % (20-50)
== END 2024-11-07 09:21 | disposition home or self-care (01) ==
LOC: CHSLAB 09:22
PROVIDERS: PCP Physician Assistant; Visit Provider Internal Medicine Nephrology
DX: N18.32 Chronic kidney disease, stage 3b (principal)
CPT/HCPCS: 36415; 80069; 82043; 82306; 83540; 83550; 85027

== ENCOUNTER 2025-01-18 09:32 | Outpatient (CLI) | payer MEDICARE, SELFPAY ==
--- OUTSIDE RECORDS SUMMARY | 2025-01-18 10:30 | XMS_ITS | Clinical Summary ---
Author Organization [facility] Address [address], [address] [address] Phone Care Team Providers Care Wire Mesh Filter Fabricator Name Role Phone Demetrio Araiza MD Unavailable [phone] Ronan Farley MD Unavailable [phone] Alex Cross MD Unavailable [phone] Demetrio Weston Primary Care Provider [phone] Mary Jo Atkinson APRN, GEOPHYSICAL MANAGER Unavailable [phone] Allergies No known active allergies Medications omeprazole [...] neoplasm 12/30/2016 Overview (02/14/2019): Clinical stage IIA ([id number] Aurelia 3 + 4 histology and PSA 10.32) [...] 1940 Hepatitis C Virus (HCV) Screening 1940 Medicare Initial AWV [id number] 04/17/2007 Diabetes: Nephropathy Screening 03/11/2023 03/11/2022, 03/16/2021, 03/13/2021, Additional history exists Diabetes: Hemoglobin A1c 06/06/2024 024, 10/31/2022, 07/31/2022, Additional history exists Influenza Immunization (#1) 2024 102 03/2023, 11/22/2022, 12/17/2021, Additional history exists SARS-COV-2 Immunization ( season) 2024 12/08/2023, 11/22/2022, 01/06/2022, Additional history [...] CMP (COMPREHENSIVE METABOLIC PANEL) 03/11/2022 12:00 AM SUPERVISOR TREE TRIMMING HEMOGLOBIN A1C W/ ESTIMATED GLUCOSE STAT 03/16/2021 10:06 PM SUPERVISOR TREE TRIMMING from Last 3 Months or Most Recently Relevant to Health Maintenance Results * CMP (COMPREHENSIVE METABOLIC PANEL) (03/11/2022 12:00 AM SUPERVISOR TREE TRIMMING) 03/11/2022 us Provider Scan CHEMISTRY ORDERABLES Final Resul t SCAN * (ABNORMAL) Hemoglobin A1C w/ Estimated Glucose (03/16/2021 10:06 PM SUPERVISOR TREE TRIMMING) HGB-A1C 12.6(H) 4.0 - 6.0 % 03/16/2021 11:39 PM SUPERVISOR TREE TRIMMING [facility] Est Average Glucose 314.9 mg/dL 03/16/2021 11:39 PM SUPERVISOR TREE TRIMMING [facility] Blood Venipuncture / Unknown 03/16/2021 10:06 PM SUPERVISOR TREE TRIMMING 03/16/2021 11:10 PM SUPERVISOR TREE TRIMMING Narrative [facility] - 03/16/2021 11:39 PM SUPERVISOR TREE TRIMMING HEMOGLOBIN A1C: DIABETIC PATIENTS: WELL-CONTROLLED: 6.2 - 7.0 INTERMEDIATE WELL-CONTROLLED: 7.0 - 9.0 POORLY-CONTROLLED: >9.0 us Rajan Carvalho MD CHEMISTRY ORDERABLES Anjali shipman Result [facility] [address] [place] [address] from Last 3 Months or Most Recently Relevant to Health Maintenance Insurance MEDICARE C [facility] Care Teams Wire Mesh Filter Fabricator Relationship Specialty Start Date End Date Demetrio Weston PAC [address] [place] [id number] PCP - General Physician Car Jockey 11/08/20 Demetrio Araiza MD Consulting Physician Radiation Oncology 02/14/16 Ronan Farley MD Consulting Physician Urology 02/22/16 Alex Cross MD [address] [place] [address] Consulting Physician Orthopaedic Surgery 02/23/16 Mary Jo Atkinson, COAGULATING DRYING SUPERVISOR, GEOPHYSICAL MANAGER [address] [place] [address] DR PAZ [address] [place] [id number] Nurse Practitioner Endocrinology 11/14/21
--- OUTSIDE RECORDS SUMMARY | 2025-01-18 10:30 | XMS_ITS | Encounter Summary ---
Author Organization [facility] Address [facility] [place] [address] Care Team Providers Care Shank Paperer Name Role Phone Blake Nixon MD Primary Care Provider [phone] Encounter Details Date Type Department Care Team (Late st Contact Info) Description 03/08/2020 Hospital Follow-up Call [facility] [address] [place] [address] Tracie Gimenez RN Social History Tobacco Use Types Packs/Day Years Used Date Smoking Tobacco: Former Smokeless Tobacco: Former Alcohol Use Standard Drinks/Week Comments Yes 0 (1 standard drink = 0.6 oz pur e alcohol) RARE Sex and Gender Information Value Date Recorded Sex Assigned at Not on file Legal Sex Male 9:42 PM CANE FURNITURE MAKER Gender Identity Not on file Sexual Orientation Not on file COVID-19 Exposure Response Date Recorded In the last month, have you been in contact with someone who was confirmed or suspected to have Coronavirus / COVID-19? No / Unsure 03/04/2020 9:26 AM CANE FURNITURE MAKER documented as of this encounter Functional Status * RETIRED Are you deaf or do you have serious difficulty hearing Answer Date of Assessment Author Status Yes 03/04/2020 9:08 AM CANE FURNITURE MAKER Activ e * RETIRED Are you blind or do you have serious difficulty seeing, even when wearing glasses? Answer Date of Assessment Author Status No 03/04/2020 9:08 AM CANE FURNITURE MAKER Activ e * Do you have serious difficulty walking or climbing stairs? Answer Date of Assessment Author Status No 03/04/2020 9:08 AM CANE FURNITURE MAKER Montez Camacho RN Active * Do you [...] documented as of this encounter Care Teams Shank Paperer Relationship Specialty Start Date End Date Blake Nixon MD [address] [place] [phone] PCP - General FAMILY PRACTICE 07/15/18 documented as of this encounter
--- OUTSIDE RECORDS SUMMARY | 2025-01-18 10:30 | XMS_ITS | Encounter Summary ---
Author Organization [facility] Address [facility] [place] [address] Care Team Providers Care Hardware Developer Name Role Phone Blake Nixon MD Primary Care Provider Encounter Details Date Type Department Care Team (Late st Contact Info) Description 05/02/2017 Abstract [facility] CONVERSION [address] [place] [address] , Generic ConversionMD Social History Tobacco Use Types Packs/Day Years Used Date Smoking Tobacco: Never Assessed Sex and Gender Information Value Date Recorded Sex Assigned at Not on file Legal Sex Male 9:42 PM REAMING MACHINE OPERATOR Gender Identity Not on file Sexual Orientation Not on file documented as of this encounter Plan of Treatment Not on file documented as of this encounter Visit Diagnoses Not on filedocumented in this encounter Additional Health Concerns Infection Onset Date Last Indicated Resolved Time MRSA 01/09/2017 01/09/2017 documented as of this encounter Care Teams Hardware Developer Relationship Specialty Start Date End Date Blake Nixon MD [address] [place] [address] PCP - General FAMILY PRACTICE 07/15/18 documented as of this encounter
--- OUTSIDE RECORDS SUMMARY | 2025-01-18 10:30 | XMS_ITS | Clinical Summary ---
Author Organization [facility] Address [address] [place] [address] Care Team Providers Care Transit Police Officer Name Role Phone Blake Nixon MD Primary Care Provider [phone] Allergies No known active allergies Medications allopurinol [...] on file Legal Sex Male 9:42 PM PROPERTY LOSS INSURANCE CLAIM ADJUSTER Gender Identity Not on file Sexual Orientation Not on file Last Filed Vital Signs Vital Sign Reading Time Taken Comments Blood Pressure 143/64 03/06/2020 3:56 AM PROPERTY LOSS INSURANCE CLAIM ADJUSTER Pulse 65 03/06/2020 3:56 AM PROPERTY LOSS INSURANCE CLAIM ADJUSTER Temperature 36.3 C (97.3 F) 03/06/2020 3:56 AM PROPERTY LOSS INSURANCE CLAIM ADJUSTER Respiratory Rate 18 03/06/2020 3:56 AM PROPERTY LOSS INSURANCE CLAIM ADJUSTER Oxygen Saturation 97% 03/06/2020 3:56 AM PROPERTY LOSS INSURANCE CLAIM ADJUSTER Inhaled Oxygen Concentration - - Weight 98.1 kg (216 lb 4.3 oz) 03/04/2020 9:00 P M PROPERTY LOSS INSURANCE CLAIM ADJUSTER Height 165.1 cm (5' 5) 03/04/2020 9:11 AM PROPERTY LOSS INSURANCE CLAIM ADJUSTER Body Mass Index 35.99 03/04/2020 9:11 AM PROPERTY LOSS INSURANCE CLAIM ADJUSTER Plan of Treatment Health Maintenance Due Date Last Done Comments DTaP, Tdap and Td Vaccines ( 1 - Tdap) 1960 Pneumococcal Vaccine: 50+ Ye ars (1 of 1 - PCV) 04/22/1991 Annual Medicare Wellness Visit 2006 Zoster Vaccines (2 of 3) 12/03/2012 10/08/2012 RSV Immunization or 60+ Years (1 - 1-dose 75+ series) 2016 COVID-19 Vaccine (2024-2 6 season) 2024 Influenza Adult (#1) 2024 Hepatitis A Vaccines Aged Out No long er eligible based on patient's age to complete this topic Meningococcal B Vaccine Aged Out No l onger eligible based on patient's age to complete this topic Meningococcal Vaccine Aged Out No lcaude jacobo eligible based on patient's age to complete this topic RSV Immunizations Under 20 Months Aged Out No longer eligible based on patient's age to complete this topic Additional Health Concerns Infection Onset Date Last Indicated MRSA 01/09/2017 01/09/2017 Insurance Advance Directives * Full Code (Latest Code Status on File) Date Activated Date Inactivated Comments 03/04/2020 9:06 AM 03/06/2020 2:54 PM Care Teams Transit Police Officer Relationship Specialty Start Date End Date Blake Nixon MD [address] [place] [phone] PCP - General FAMILY PRACTICE 07/15/18
--- OUTSIDE RECORDS SUMMARY | 2025-01-18 10:30 | XMS_ITS | Clinical Summary ---
[facility] Address [address] [place] [address] Care Team Providers Care Telepathist Name Role Phone Demetrio Weston Primary Care Provider [phone] Allergies Active Allergy Reactions Criticality Noted Date [...] mg total) by mouth daily 1 Active cyanocobalamin/ folic acid (vitamin W66-blnlw acid) 1,000-400 mcg lozenge Take 1 capsule by mouth daily Active OneTouch Ultra Test strip 2 Active OneTouch Ultra2 Meter misc 2 Active OneTouch Delica Plus Lancet 30 gauge misc 2 Active pen needle, diabetic 32 gauge x 5/32 needle Use to inject insulin daily. E11.65 patient want Relion needles. Will be brenner pay. 400 each 1 5 Active Soliqua 100/33 100 unit-33 mcg/mL insulin penIndications: type 2 diabetes mellitus Inject 42 Units under the skin daily E11.65 45 mL 4 5 Active flash glucose scanning reader [facility] 1 Device continuously To read freestyle nae 3+ sensor. E11.9 1 each 1 5 Active Active Problems Problem Noted Date Diagnosed Date Personal history of colonic polyps 05/14/2023 Encounter for screening colonoscopy 05/14/2023 freestyle nea 2 continuous glucose monitoring device 07/31/2022 Assessment & Plan (10/10/2024 10:08 AM CDT): Continuous glucose monitor (cgm) applied from 09/27/2024 to 10/10/2024 This device was placed for monitor and treatment of blood sugar. Interpretation of data- average glucose 145, in target range 85%, 15% hyperglycemia. 0 hypoglycemia. GMI 6.8% Assessment & Plan (04/11/2024 9:41 AM QUAL RESEARCH MANAGER): Continuous glucose monitor (cgm) applied from 03/29/2024 [...] ranges Assessment & Plan (01/30/2023 9:35 AM QUAL RESEARCH MANAGER): Continuous glucose monitor (cgm) applied from 01/17/2023 [...] prescribed. Assessment & Plan (01/31/2021 12:17 AM QUAL RESEARCH MANAGER): Losartan resumed with hold parameters Mixed diabetic hyperlipidemi a associated with type 2 diabetes mellitus 01/31/2021 Assessment & Plan (12/07/2023 9:31 AM [...] prescribed. Assessment & Plan (01/30/2023 9:31 AM QUAL RESEARCH MANAGER): This is a chronic condition which is [...] prescribed. Assessment & Plan (04/02/2021 6:12 PM QUAL RESEARCH MANAGER): This is a chronic condition Goal is less than 70. Continue simvastatin. Encouraged to eat healthy, include fresh fruits and vegetables daily and avoid eating fried foods more than once per week. Encouraged to take medications as prescribed. Assessment & Plan (01/31/2021 12:17 AM QUAL RESEARCH MANAGER): Continue statin Normocytic anemia 01/31/2021 Assessment & Plan (01/31/2021 12:18 AM QUAL RESEARCH MANAGER): Hemoglobin decreased from 12.4-10.6. Will continue to monitor. Patient okay with transfusion if needed. Lactic acidosis 01/31/2021 Assessment & Plan (01/31/2021 12:18 AM QUAL RESEARCH MANAGER): Likely secondary to GI bleed. Continue IV fluids. Anorectal hemorrhage 01/30/2021 Assessment & Plan (01/31/2021 12:17 AM QUAL RESEARCH MANAGER): Patient seen by GI. Continue Cipro and Flagyl. Clear liquid diet. H&H q.8. 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 Freestyle Nae 2 continuous glucose monitor applied from 04/18/2022 to 05/01/2022 This device was placed for monitor and treatment of blood sugar. Interpretation of data- In target 63% of the time with soliqua 22-24 units daily without hypoglycemia. Assessment & Plan (12/30/2021 9:27 AM QUAL RESEARCH MANAGER): This is a chronic condition which is [...] No history of macrovascular disease - [place] Freestyle Nae 2 continuous glucose monitor applied [...] No history of macrovascular disease - [place] Freestyle Nae 2 continuous glucose monitor applied [...] No history of macrovascular disease - [place] Freestyle Nae 2 continuous glucose monitor applied [...] hypoglycemia. Assessment & Plan (04/02/2021 6:11 PM QUAL RESEARCH MANAGER): This is a chronic condition which is [...] No history of macrovascular disease - [place]. Assessment & Plan (01/31/2021 12:17 AM QUAL RESEARCH MANAGER): Sugars elevated on presentation. Currently improved. Continue [...] cancer 12/30/2016 Overview (01/30/2021): Clinical stage IIA ([id number] Hepler 3 + 4 histology and PSA 10.32) [...] trees Assessment & Plan (01/30/2023 9:33 AM QUAL RESEARCH MANAGER): This is a chronic condition which continues [...] active He is working still as a [employer] Immunizations Immunization Administration Dates Next Due Influenza, Quadrivalent, Split, Intramuscular ,11/25/2018 Influenza, Trivalent, IM (MDV) 10/28/2011,2011 Pneumococcal Polysaccharide PPV23 05/05/2012 Tdap 05/05/2012 ZOSTER LIVE 10/08/2012 Surgical History Surgery Date Site/Laterality Comments COLONOSCOPY 02/17/2020 - 02/15/2021 COLONOSCOPY 01/22/2024 Medical History Medical History Date Comments Rectal bleeding Diabetes Hypertension Cancer (HCC) Social History Tobacco Use [...] on file Legal Sex Male 1:50 AM QUAL RESEARCH MANAGER Gender Identity Not on file Sexual Orientation Not on file Last Filed Vital Signs Vital Sign Reading Time Taken Comments Blood Pressure 132/60 10/10/2024 9:23 AM CDT Pulse 59 01/22/2024 11:43 AM QUAL RESEARCH MANAGER Temperature 37.1 C (98.8 F) 01/22/2024 11:43 AM QUAL RESEARCH MANAGER Respiratory Rate 16 01/22/2024 11:4 3 AM QUAL RESEARCH MANAGER Oxygen Saturation 99% 01/22/2024 11: 43 AM QUAL RESEARCH MANAGER Inhaled Oxygen Concentration - - Weight 90.6 kg (199 lb 12.8 oz) 10/10/2024 9:23 AM CDT Height 157.5 cm (5' 2) 10/10/2024 9:23 AM CDT Body Mass Index 36.54 10/10/2024 9:23 AM CDT Plan of Treatment Health Maintenance Due Date Last Done Comments Depression Screening 1940 Hepatitis B Screening 04/22/1958 Well Visit 65+ 2006 Zoster Vaccine (2 of 3) 12/03/2012 10/08/2012 Dilated Eye Exam 05/17/2022 05/17/2021 Covid-19 Vaccine (2024-2 6 season) 2024 01/06/2022, 06/06/2021, 12/13/2020, Additional history exists Influenza Vaccine (#1) 2024 , 12/13/2020, 12/08/2019, Additional history exists Foot Exam 12/06/2024 12/07/2023, 07/18, 05/04/2023, Additional history exists Fall Risk Assessment 01/21/2025 01/22/2024 Hemoglobin A1C 04/12/2025 10/10/2024, 03/20, 12/07/2023, Additional history exists Albumin Creatinine Ratio, Urine 10/10/2025 10/10/2024, 12/07/2023, 01/30/2023, Additional history exists Lipid Panel 10/10/2025 10/10/2024, 11/17, 01/30/2023, Additional history exists eGFR 10/10/2025 10/10/2024, 11/17, 01/30/2023, Additional history exists DTaP/Tdap/Td Vaccine (3 - Td or Tdap) 02/14/2029 02/14/2019, 05/05/2012 Pneumococcal vaccine 65+ Completed 022, 01/07/2021, 12/07/2020, Additional history exists Procedures Procedure Name Priority Date/Time Associated Diagnosis Comments EGFR Routine 10/10/2024 10:06 AM CDT Type 2 diabetes mellitus with stage 3b chronic kidney disease, with long-term current use of insulin (HCC) LIPID PANEL Routine 10/10/2024 10:06 AM CDT Type 2 diabetes mellitus with stage 3b chronic kidney disease, with long-term current use of insulin (HCC) ALBUMIN CREATININE RATIO, URINE Routine 10/10/2024 10:06 AM CDT Type 2 diabetes mellitus with stage 3b chronic kidney disease, with long-term current use of insulin (HCC) POCT HEMOGLOBIN A1C Routine 10/10/2024 9 :28 AM CDT Type 2 diabetes 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 73 m2 Comment: Interpretive Data [...] Current interpretive data was last reviewed 2020. Testing performed by: [facility], [address] [place] [address]., [address] Blood 10/10/2024 10:0 6 AM CDT 10/10/2024 4:58 PM CDT us Mary Jo Atkinson NP LAB BLOOD ORDERABLES Final Resu lt [facility] [id number] [facility] Department [place] [address] * (ABNORMAL) Albumin Creatinine Ratio, Urine (10/10/2024 10:06 AM CDT) Albumin Ur 133.3 mg/L Comment: Interpretive Data No reference range established. Current interpretive data was last revised 2018. Testing performed by: [facility], [address] [place] [address]., [address] Creatinine Ur 92.1 mg/dL [facility] Comment: Interpretive Data No reference range established. Current interpretive data was last revised 2018. Testing performed by: [facility], [address] [place] [address]., [address] Albumin Creatinine Ratio, Ur 145(H) 1 - 29 mg/g [facility] Comment:Testing performed by : [facility], [address] [place] [address]., [address] Urine 10/10/2024 10:0 6 AM CDT 10/10/2024 4:52 PM CDT us Mary Jo Atkinson HELPDESK MANAGER LAB URINE ORDERABLES Final Resu lt [address] Department [place] [address] * (ABNORMAL) Lipid panel (10/10/2024 10:06 AM CDT) Pathologist [facility] Cholesterol 158 30 - 199 mg/dL Comment: Interpretive Data [...] Interpretive Data was last revised on 2017. Testing performed by: [address] [address] Triglycerides 264(H) <=149 mg/dL [facility] Comment: Interpretive Data Ages [...] Interpretive Data was last revised on 2017. Testing performed by: [facility], [address] [place] [address]., [address] HDL 37(L) >=40 mg/dL [facility] Comment: Interpretive Data Ages [...] Interpretive Data was last revised on 2017. Testing performed by: [facility], [address] [place] [address]., [address] LDL, calculated 78 <=129 mg/dL [facility] Comment: Interpretive Data Ages [...] 2004;110:227 3. [place] al. ÓSCAR Cardiol. 2020 June 16;5(5):540-548. doi: 10.1001/[email or web address].2020.0013 Current Interpretive Data was last revised on 2023. Testing performed by: [facility], [address] [place] [address]., [address] Non-HDL Cholesterol 121 mg/dL [facility] Comment: Interpretive Data Ages < [...] Interpretive Data was last revised on 2017. Testing performed by: [facility], [address] [place] [address]., [address] Chol/HDL ratio 4 [facility] Comment:Testing performed by : [address] [address] Blood 10/10/2024 10:0 6 AM CDT 10/10/2024 4:52 PM CDT Narrative [facility] - 10/10/2024 5:37 PM CDT These lab test should be done fasting. This means do not eat or drink for at least 12 hours prior to getting your blood drawn. Has the patient been fasting for 8 hours or more?->Yes Mary Jo Atkinson NP LAB BLOOD ORDERABLES Final Resu [facility] [address] [place] [address] Department [place] [address] * (ABNORMAL) POCT hemoglobin A1c (10/10/2024 9:28 AM CDT) Hemoglobin A1C, POC 6.8(A) 4.0 - 5.6 % Blood 10/10/2024 9:28 AM CDT Mary Jo Atkinson NP POINT OF CARE TEST ORDERABLES F inal Result * Diabetic Eye Exam (05/17/2021) us Historical Provider HEALTH MAINTENANCE Final Result from Last 3 Months or Most Recently Relevant to Health Maintenance Insurance [facility] MEDICARE ADVANTAGE Advance Directives For more information, please contact: [phone] * Full Code (Latest Code Status on File) Date Activated Date Inactivated Comments 01/22/2024 8:59 AM 01/22/2024 4:07 PM * Full Code Date Activated Date Inactivated Comments 01/22/2024 8:59 AM 01/22/2024 8:59 AM * Full Code Date Activated Date Inactivated Comments 01/30/2021 8:31 AM 02/01/2021 9:56 PM Care Teams Telepathist Relationship Specialty Start Date End Date Demetrio Weston PA [address] [place] [address] PCP - General Family Practice 10/05/20
[2025-01-18 10:31] LABS: Alanine Aminotransferase 19 U/L (6-50); Albumin Level 4.4 g/dL (3.5-5.1); Alkaline Phosphatase 55 U/L (38-126); Anion Gap 15 mmol/L (4-12); Aspartate Amino Transferase 25 U/L (17-59); Bilirubin,Total 0.5 mg/dL (0.2-1.3); Blood Urea Nitrogen 32 mg/dL (9-20); Calcium 9.2 mg/dL (8.4-10.2); Carbon Dioxide 21 mmol/L (22-30); Chloride 105 mmol/L (98-107); Estimated Glomerular Filt Rate 34; Glucose 147 mg/dL (65-110); Osmolality Calculated 301 mOsm/kg (285-295); Potassium 5.0 mmol/L (3.4-5.0); Sodium 141 mmol/L (137-145); Total Protein 7.2 g/dL (6.3-8.2)
[2025-01-18 11:01] LABS: Prostate Specific Antigen < 0.1 ng/mL (< OR = 4.0)
== END 2025-01-18 09:33 | disposition home or self-care (01) ==
LOC: CHSLAB 09:37
PROVIDERS: PCP Physician Assistant
DX: C61 Malignant neoplasm of prostate (principal); N40.3 Nodular prostate with lower urinary tract symptoms; N18.9 Chronic kidney disease, unspecified
CPT/HCPCS: 36415; 80053; 84153